=== PATIENT | male | born 1960 | race Caucasian/White ===

== ENCOUNTER 2017-06-27 03:22 | Inpatient (IN) | payer OTHER ==
[2017-06-27] VITALS (9 sets, daily range): BP systolic 106–132; BP diastolic 66–85; PULSE 57–102; RESP 16–48; TEMP 96.9–97.9; O2SAT 82–100
[~2017-06-27] VITALS: Ht 170.2 cm; Wt 51.0 kg
[~2017-06-27 03:22] MED LIST: Z.0.NO CURRENT MEDS
--- NOTE | 2017-06-27 04:05 | PD ---
HPI Chief Complaint: Psychiatric Symptoms Time Seen by Provider: 03:45 Travel History International Travel<30 days: No Contact w/Intl Traveler<30days: No Traveled to known affect area: No History of Present Illness HPI 57-year-old male presents under Lynn act initiated by the Police Department. The patient reports that he believes that some clowns have been vandalizing the house is in his neighborhood. Specifically he feels like they are targeting his house as he recently inherited $4300 and he thinks that the clowns are trying to act into his computer system. According to the Lynn act form this is the third time that the police department has had to respond this patient's residence to make contact with the patient. He called the police because he thought that there are people inside of the house trying to kill him. The police did not find anyone in the house except the patient and his 91-year-old mother who he lives with. The patient consumes alcohol on a daily basis, tonight drank beer and vodka. He has no psychiatric history. He has no medical complaints at this time. PFSH Past Medical History Arthritis: Yes (A LITTLE BIT) Asthma: No Autoimmune Disease: No Blood Disorders: No Anxiety: No Depression: No Heart Rhythm Problems: Yes (HEART PALPITATIONS) Cancer: No High Cholesterol: No Chemotherapy: No Chest Pain: No Congestive Heart Failure: No COPD: No Cerebrovascular Accident: No Diabetes: No Diminished Hearing: No Endocrine: No Gastrointestinal Disorders: Yes (BLEEDING ULCERS) GERD: No Glaucoma: No Genitourinary: No Headaches: No Hepatitis: No Hiatal Hernia: No Hypertension: No Immune Disorder: No Kidney Stones: No Neurologic: No Psychiatric: No Respiratory: No Integumentary: Yes (PSORIASIS) Migraines: No Myocardial Infarction: No Pancreatitis: Yes Radiation Therapy: No Renal Failure: No Seizures: No Sickle Cell Disease: No Sleep Apnea: No Thyroid Disease: No Ulcer: Yes Past Surgical History Abdominal Surgery: No AICD: No Appendectomy: No Arteriovenous Shunt: No Cardiac Surgery: No Cholecystectomy: No Ear Surgery: No Endocrine Surgery: No Eye Surgery: No Genitourinary Surgery: No Gynecologic Surgery: No Insulin Pump: No Joint Replacement: No Oral Surgery: No Pacemaker: No Thoracic Surgery: No Other Surgery: Yes (JAW) Social History Alcohol Use: Yes (6 BEERS DAILY) Tobacco Use: Yes (1.5 PPD) Substance Use: No Allergies-Medications (Allergen,Severity, Reaction): Coded Allergies: No Known Allergies (Verified , 06/27/17) Reported Meds & Prescriptions Reported Meds & Active Scripts Active No Active Prescriptions or Reported Medications Review of Systems Except as stated in HPI: all other systems reviewed are Neg Physical Exam Narrative GENERAL: Well-developed well-nourished male in no acute distress SKIN: Warm and dry. HEAD: Atraumatic. Normocephalic. EYES: Pupils equal and round. No scleral icterus. No injection or drainage. ENT: No nasal bleeding or discharge. Mucous membranes pink and moist. NECK: Trachea midline. No JVD. CARDIOVASCULAR: Regular rate and rhythm. No murmur appreciated. RESPIRATORY: No accessory muscle use. Clear to auscultation. Breath sounds equal bilaterally. GASTROINTESTINAL: Abdomen soft, non-tender, nondistended. Hepatic and splenic margins not palpable. MUSCULOSKELETAL: No obvious deformities. No clubbing. No cyanosis. No edema. NEUROLOGICAL: Awake and alert. No obvious cranial nerve deficits. Motor grossly within normal limits. Normal speech. PSYCHIATRIC: Insight and judgment appear limited, delusional and bizarre statements. Data Data Last Documented VS Vital Signs Date Time Temp Pulse Resp B/P Pulse Ox O2 Delivery O2 Flow Rate FiO2 06/27/17 05:38 82 20 106/70 98 Room Air 06/27/17 03:35 97.6 Orders Complete Blood Count With Diff (06/27/17 03:43) Comprehensive Metabolic Panel (06/27/17 03:43) Psych Screen (06/27/17 03:43) Drug Screen, Random Urine (06/27/17 03:43) Alcohol (Ethanol) (06/27/17 03:43) Potassium Chlor 10 Meq Premix (Kcl 10 Me (06/27/17 05:15) Potassium Chloride (Kcl) (06/27/17 05:15) Electrocardiogram (06/27/17 ) Ecg Monitoring (06/27/17 05:09) Sodium Chlor 0.9% 1000 Ml Inj (Ns 1000 M (06/27/17 05:09) Magnesium (Mg) (06/27/17 05:18) ^ Sitter (06/27/17 05:25) Consult Psychiatry (06/27/17 ) (Hub Use Only)Inp Phy Cons/Ref (06/27/17 ) Labs Laboratory Tests Test 06/27/17 03:45 White Blood Count 5.7 TH/MM3 Red Blood Count 4.16 MIL/MM3 Hemoglobin 13.0 GM/DL Hematocrit 38.5 % Mean Corpuscular Volume 92.4 FL Mean Corpuscular Hemoglobin 31.2 PG Mean Corpuscular Hemoglobin 33.8 % Concent Red Cell Distribution Width 14.5 % Platelet Count 106 TH/MM3 Mean Platelet Volume 7.7 FL Neutrophils (%) (Auto) 62.0 % Lymphocytes (%) (Auto) 26.5 % Monocytes (%) (Auto) 11.0 % Eosinophils (%) (Auto) 0.4 % Basophils (%) (Auto) 0.1 % Neutrophils # (Auto) 3.5 TH/MM3 Lymphocytes # (Auto) 1.5 TH/MM3 Monocytes # (Auto) 0.6 TH/MM3 Eosinophils # (Auto) 0.0 TH/MM3 Basophils # (Auto) 0.0 TH/MM3 CBC Comment DIFF FINAL Differential Comment Sodium Level 118 MEQ/L Potassium Level 2.4 MEQ/L Chloride Level 71 MEQ/L Carbon Dioxide Level 35.0 MEQ/L Anion Gap 12 MEQ/L Blood Urea Nitrogen 22 MG/DL Creatinine 0.96 MG/DL Estimat Glomerular Filtration 81 ML/MIN Rate Random Glucose 97 MG/DL Calcium Level 9.0 MG/DL Total Bilirubin 1.2 MG/DL Aspartate Amino Transf 137 U/L (AST/SGOT) Alanine Aminotransferase 66 U/L (ALT/SGPT) Alkaline Phosphatase 143 U/L Total Protein 8.9 GM/DL Albumin 4.2 GM/DL Ethyl Alcohol Level 89 MG/DL [facility] Medical Decision Making Medical Screen Exam Complete: Yes Emergency Medical Condition: Yes Medical Record Reviewed: Yes Differential Diagnosis Schizophrenia, schizoaffective disorder, substance induced mood disorder, encephalopathy, acute psychosis, intoxication Narrative Course 57-year-old male presents under Lynn act initiated by the Police Department for evaluation of paranoia. Mental health screening discussed with the patient. Psychiatric screen ordered. The patient's lab work has resulted a potassium level 2.4 and a sodium level of 118. The patient will be placed on ECG monitoring a 12-lead EKG was obtained. The patient will be given IV fluids, placed on water restriction, given 10 mEq IV potassium chloride and 40 mEq oral potassium. He will be admitted medically. Discussed with my attending who agrees with plan of care. Discussed with Dr. Estrada who is agreeable with admission. A sitter will be requested. Procedures EKG Prior to Arrival: Yes Diagnosis Primary Impression: Paranoid delusion Additional Impressions: Hyponatremia Hypokalemia Admitting Information Admitting Physician Requests: Admit Scripts No Active Prescriptions or Reported Meds Marvin Galindo Jun 27, 2017 04:05
[2017-06-27 04:27] LABS: AUTOMATED NEUTROPHIL # 3.5 TH/MM3 (1.8-7.7); BASOPHIL % 0.1 % (0.0-2.0); EOSINOPHIL % 0.4 % (0.0-4.0); HEMATOCRIT 38.5 % (39.0-51.0); HEMO FLAGS DIFF FINAL; LYMPH % 26.5 % (9.0-44.0); LYMPHOCYTE # 1.5 TH/MM3 (1.0-4.8); MEAN CELL VOLUME 92.4 FL (80.0-100.0); MEAN CORPUSCULAR HEMOGLOBIN 31.2 PG (27.0-34.0); MEAN CORPUSCULAR HGB CONC 33.8 % (32.0-36.0); PLATELET COUNT 106 TH/MM3 (150-450); RED BLOOD COUNT 4.16 MIL/MM3 (4.50-5.90); RED CELL DISTRIBUTION WIDTH 14.5 % (11.6-17.2); WHITE BLOOD COUNT 5.7 TH/MM3 (4.0-11.0)
[2017-06-27 05:02] LABS: ALKALINE PHOSPHATASE 143 U/L (45-117); ALT (GPT) 66 U/L (12-78); ANION GAP 12 MEQ/L (5-15); AST (GOT) 137 U/L (15-37); BLOOD UREA NITROGEN 22 MG/DL (7-18); CHLORIDE 71 MEQ/L (98-107); GLOMERULAR FILTRATION RATE 81 ML/MIN (>89); TOTAL BILIRUBIN ADULT 1.2 MG/DL (0.2-1.0)
[2017-06-27 05:07] LABS: ALCOHOL 89 MG/DL (0-5)
[2017-06-27 05:09] LABS: POTASSIUM 2.4 MEQ/L (3.5-5.1); SODIUM (NA) 118 MEQ/L (136-145)
[2017-06-27] MEDS ORDERED: SODIUM CHLOR 0.9% 1000 ML INJ 1,000 ML IV SCH (05:09)
[2017-06-27] MEDS ORDERED: POTASSIUM CHLORIDE 20 MEQ CONTROLLED RELEASE TAB PO ONE ×2 (05:15→16:15)
[2017-06-27] MEDS ORDERED: POTASSIUM CHLOR 10 MEQ PREMIX 100 ML IV ONE (05:15)
[2017-06-27] MEDS ORDERED: LACTULOSE SYRUP 20 GM/30 ML CUP PO PRN (06:00)
[2017-06-27] MEDS ORDERED: BISACODYL 10 MG SUPP RECTAL PRN (06:00)
[2017-06-27] MEDS ORDERED: ACETAMINOPHEN 325 MG TAB PO PRN (06:00)
[2017-06-27] MEDS ORDERED: MAGNESIUM HYDROXIDE SUSP 30 ML CUP PO PRN (06:00)
[2017-06-27] MEDS ORDERED: FLUMAZENIL 0.5 MG/5 ML VIAL IV PUSH PRN (06:00)
[2017-06-27] MEDS ORDERED: SODIUM CHLORIDE 0.9% FLUSH 10 ML FLUSH IV FLUSH PRN (06:00)
[2017-06-27] MEDS ORDERED: LORazepam 1 MG TAB PO PRN (06:00)
[2017-06-27] MEDS ORDERED: LORazepam 2 MG TAB PO PRN (06:00)
[2017-06-27] MEDS ORDERED: LORazepam 2 MG/ML VIAL IV PUSH PRN ×4 (06:00)
[2017-06-27] MEDS ORDERED: ONDANSETRON HCL 4 MG/2 ML VIAL IVP PRN (06:00)
[2017-06-27] MEDS ORDERED: SENNOSIDES 8.6 MG TAB PO PRN (06:00)
[2017-06-27] MEDS ORDERED: HALOPERIDOL LACTATE 5 MG/ML AMP IM PRN (06:00)
[2017-06-27] MEDS: SODIUM CHLOR 0.9% 1000 ML INJ 1,000 ML IV SCH ×2 (06:54→14:09)
[2017-06-27] MEDS: MULTIVITAMINS/MINERALS THERAPEUTIC TAB PO SCH (09:00)
[2017-06-27] MEDS: SODIUM CHLORIDE 0.9% FLUSH 10 ML FLUSH IV FLUSH SCH ×2 (09:00→20:49)
[2017-06-27] MEDS: FOLIC ACID 1 MG TAB PO SCH (09:00)
[2017-06-27] MEDS: THIAMINE HCL 100 MG TAB PO SCH (09:00)
[2017-06-27] MEDS: DOCUSATE SODIUM 50 MG/SENNA 8.6 MG TAB PO SCH ×2 (09:00→20:48)
[2017-06-27 12:47] LABS: BICARBONATE 34.4 MEQ/L (21.0-32.0); POTASSIUM 3.3 MEQ/L (3.5-5.1)
--- NOTE | 2017-06-27 15:11 | EKG ---
Date Performed: 06/27/2017 Time Performed: 05:19:16 PTAGE: 57 years EKG: Sinus rhythm Borderline atrial abnormality Otherwise within normal limits Compared to prior tracing no significan t change BORDERLINE ECG PREVIOUS TRACING : 09/19/2009 11.22 DOCTOR: Ross Chen Interpretating Date/Time 06/27/2017 15:09:49
--- NOTE | 2017-06-27 15:44 | HHI.HP ---
[facility] Service [facility] Primary Care Physician No Primary Care Physician Admission Diagnosis hyponatremia, hypokalemia, Lynn act Diagnoses: Chief Complaint: Altered mental status/Lynn act Travel History International Travel<30 Days: No Contact w/Intl Traveler <30 Da: No Traveled to Known Affected Are: No History of Present Illness This is a 57-year-old male with a past medical history only significant from admission in 2008 due to bleeding ulcer who presented with altered mental status /Lynn act. She unable to give a history due to altered mental status. Medical records reviewed stated that patient was Lynn act and brought to the ED. Per ED provider patient reported that he probably some clowns have been vandalizing his house and neighborhood. He feels like they're targeting his house because he recently inherited $4300. Patient lives with his mom who is 91 years old. He does drink alcohol on a daily basis. He drinks beer and vodka. He has no psychiatric history in the EMR system. When I tried to interview patient he would only moan and would not speak with me. His sitters us at the bedside and she stated that this is his baseline and at times he does speak and he still thinks clowns are after him. She also stated that he did asked to use the restroom earlier and they tried to let him use the restroom but he did not urinate at all. Unable to obtain review of systems due to altered mental status. Past Family Social History Past Medical History Unable to obtain due to altered mental status. Medical records reviewed show that patient had a history of pancreatitis, osteoarthritis, and bleeding ulcer. Past Surgical History Unable to obtain but in the EMR stated that patient had jaw surgery. Reported Medications Reported Meds & Active Scripts Active No Active Prescriptions or Reported Medications Allergies: Coded Allergies: No Known Allergies (Verified , 06/27/17) Active Ordered Medications Current Medications Potassium Chloride 100 ml @ 100 mls/hr BOLUS ONCE IV Last administered on t 05:35; Start 06/27/17 at 05:15; Stop 06/27/17 at 06:14; Status DC Potassium Chloride (KCl) 40 meq ONCE ONCE PO Last administered on 06/27/17 05 :24; Start 06/27/17 at 05:15; Stop 06/27/17 at 05:16; Status DC Sodium Chloride 1,000 ml @ 1,000 mls/hr Q1H IV Last administered on 06/27/17 05:35; Start 06/27/17 at 05:09; Stop 06/27/17 at 06:08; Status DC Folic Acid (Folate) 1 mg DAILY PO Last administered on 06/27/17 09:00; Start 06/27/17 at 09:00; Stop 07/02/17 at 08:59 Thiamine HCl (Vitamin B1) 100 mg DAILY PO Last administered on 06/27/17 09:00 ; Start 06/27/17 at 09:00 Multivitamins/ Minerals Therapeutic (Theragran M Tab) 1 tab DAILY PO Last administered on 06/27/17 09:00; Start 06/27/17 at 09:00; Stop 07/02/17 at 08:59 Flumazenil (Romazicon Inj) 0.2 mg Q1M PRN IV PUSH SEE LABEL COMMENTS; Start at 06:00 Lorazepam (Ativan) 1 mg Q4H PRN PO CIWA 8 - 10; Start 06/27/17 at 06:00 Lorazepam (Ativan Inj) 1 mg Q4H PRN IV PUSH CIWA 8 - 10; Start 06/27/17 at 06: 00 Lorazepam (Ativan) 2 mg Q2H PRN PO CIWA 11-14; Start 06/27/17 at 06:00 Lorazepam (Ativan Inj) 2 mg Q2H PRN IV PUSH CIWA 11-14 Last administered on 08:30; Start 06/27/17 at 06:00 Lorazepam (Ativan Inj) 2 mg Q1H PRN IV PUSH CIWA 15-20; Start 06/27/17 at 06:00 Lorazepam (Ativan Inj) 2 mg Q15M PRN IV PUSH CIWA > 20; Start 06/27/17 at 06:00 Haloperidol Lactate (Haldol Inj) 2 mg Q15M PRN IM SEE LABEL COMMENTS; Start at 06:00 Sodium Chloride 1,000 ml @ 100 mls/hr Q10H IV Last administered on 06/27/17 14:09; Start 06/27/17 at 05:56 Sodium Chloride (NS Flush) 2 ml UNSCH PRN IV FLUSH FLUSH AFTER USING IV ACCESS ; Start 06/27/17 at 06:00 Sodium Chloride (NS Flush) 2 ml BID IV FLUSH ; Start 06/27/17 at 09:00 Ondansetron HCl (Zofran Inj) 4 mg Q6H PRN IVP NAUSEA OR VOMITING; Start at 06:00 Acetaminophen (Tylenol) 650 mg Q6H PRN PO FEVER/PAIN SCALE 1 TO 2; Start at 06:00 Senna/Docusate Sodium (Maegan-Colace) 1 tab BID PO Last administered on 09:00; Start 06/27/17 at 09:00 Magnesium Hydroxide (Milk Of Magnesia Liq) 30 ml Q12H PRN PO MILD - MODERATE CONSTIPATION; Start 06/27/17 at 06:00 Sennosides (Senokot) 17.2 mg Q12H PRN PO MODERATE - SEVERE CONSTIPATION; Start 06/27/17 at 06:00 Bisacodyl (Dulcolax Supp) 10 mg DAILY PRN RECTAL SEVERE CONSITIPATION; Start at 06:00 Lactulose (Lactulose Liq) 30 ml DAILY PRN PO SEVERE CONSITIPATION; Start at 06:00 Family History Unable to obtain. Social History Patient lives with his 91-year-old mother. He smokes one pack per day. He drinks about 6 beers per day. On the day of admission he did recommend also drinking vodka. Physical Exam Vital Signs Vital Signs Date Time Temp Pulse Resp B/P (MAP) Pulse Ox O2 Delivery O2 Flow Rate FiO2 06/27/17 12:00 96.9 57 18 123/69 (87) 82 06/27/17 12:00 72 06/27/17 08:30 70 06/27/17 08:30 97.9 88 18 118/72 (87) 96 06/27/17 06:38 80 18 112/66 (81) 99 Room Air 06/27/17 05:38 82 20 106/70 (82) 98 Room Air 06/27/17 03:35 97.6 102 18 132/85 (101) 100 Physical Exam GENERAL: This is a well-nourished, well-developed patient, in no apparent distress but is moaning. SKIN: No rashes, ecchymoses or lesions. Cool and dry. HEAD: Atraumatic. Normocephalic. No temporal or scalp tenderness. EYES: Pupils equal round and reactive. Extraocular motions intact. No scleral icterus. No injection or drainage. ENT: Nose without bleeding, purulent drainage or septal hematoma. Throat without erythema, tonsillar hypertrophy or exudate. Uvula midline. Airway patent. NECK: Trachea midline. No JVD or lymphadenopathy. Supple, nontender, no meningeal signs. CARDIOVASCULAR: Regular rate and rhythm without murmurs, gallops, or rubs. RESPIRATORY: Clear to auscultation. Breath sounds equal bilaterally. No wheezes , rales, or rhonchi. GASTROINTESTINAL: Abdomen soft, non-tender, nondistended. No hepato-splenomegaly , or palpable masses. No guarding. MUSCULOSKELETAL: Extremities without clubbing, cyanosis, or edema. No joint tenderness, effusion, or edema noted. No calf tenderness. Negative Homans sign bilaterally. NEUROLOGICAL: Patient is moaning and eyes are closed. Grossly moves extremities. Laboratory Laboratory Tests Test 06/27/17 03:45 06/27/17 07:20 06/27/17 12:20 White Blood Count 5.7 Red Blood Count 4.16 Hemoglobin 13.0 Hematocrit 38.5 Mean Corpuscular Volume 92.4 Mean Corpuscular Hemoglobin 31.2 Mean Corpuscular Hemoglobin Concent 33.8 Red Cell Distribution Width 14.5 Platelet Count 106 Mean Platelet Volume 7.7 Neutrophils (%) (Auto) 62.0 Lymphocytes (%) (Auto) 26.5 Monocytes (%) (Auto) 11.0 Eosinophils (%) (Auto) 0.4 Basophils (%) (Auto) 0.1 Neutrophils # (Auto) 3.5 Lymphocytes # (Auto) 1.5 Monocytes # (Auto) 0.6 Eosinophils # (Auto) 0.0 Basophils # (Auto) 0.0 CBC Comment DIFF FINAL Differential Comment Blood Urea Nitrogen 22 18 Creatinine 0.96 0.69 Random Glucose 97 80 Total Protein 8.9 Albumin 4.2 Calcium Level 9.0 7.8 Alkaline Phosphatase 143 Aspartate Amino Transf (AST/SGOT) 137 Alanine Aminotransferase (ALT/SGPT) 66 Total Bilirubin 1.2 Sodium Level 118 125 Potassium Level 2.4 3.3 Chloride Level 71 82 Carbon Dioxide Level 35.0 34.4 Anion Gap 12 9 Estimat Glomerular Filtration Rate 81 119 Magnesium Level 3.2 Ethyl Alcohol Level 89 Urine Opiates Screen NEG Urine Barbiturates Screen NEG Urine Amphetamines Screen NEG Urine Benzodiazepines Screen NEG Urine Cocaine Screen NEG Urine Cannabinoids Screen NEG Serum Osmolality 270 Result Diagram: 06/27/17 0345 06/27/17 1220 Caprini VTE Risk Assessment Caprini VTE Risk Assessment: Mod/High Risk (score >= 2) VTE Pharm Contraindication: High risk for bleeding Caprini Risk Assessment Model Point Value = 1 Point Value = 2 Point Value = 3 Point Value = 5 Age 41-60 Minor surgery BMI > 25 kg/m2 Swollen legs Varicose veins or History of unexplained or recurrent spontaneous Oral contraceptives or hormone replacement Sepsis (< 1 month) Serious lung disease, including pneumonia (< 1 month) Abnormal pulmonary function Acute myocardial infarction Congestive heart failure (< 1 month) History of inflammatory bowel disease Medical patient at bed rest Age 61-74 Arthroscopic surgery Major open surgery (> 45 min) Laparoscopic surgery (> 45 min) Malignancy Confined to bed (> 72 hours) Immobilizing plaster cast Central venous access Age >= 75 History of VTE Family history of VTE Factor V Leiden Prothrombin 12214A Lupus anticoagulant Anticardiolipin antibodies Elevated serum homocysteine Heparin-induced thrombocytopenia Other congenital or acquired thrombophilia Stroke (< 1 month) Elective arthroplasty Hip, pelvis, or leg fracture Acute spinal cord injury (< 1 month) Prophylaxis Regimen Total Risk Factor Score Risk Level Prophylaxis Regimen 0-1 Low Early ambulation 2 Moderate Order ONE of the following: *Sequential Compression Device (SCD) *Heparin 5000 units SQ BID 3-4 Higher Order ONE of the following medications: *Heparin 5000 units SQ TID *Enoxaparin/Lovenox 40 mg SQ daily (WT < 150 kg, CrCl > 30 mL/min) *Enoxaparin/Lovenox 30 mg SQ daily (WT < 150 kg, CrCl > 10-29 mL/min) *Enoxaparin/Lovenox 30 mg SQ BID (WT < 150 kg, CrCl > 30 mL/min) AND/OR *Sequential Compression Device (SCD) 5 or more Highest Order ONE of the following medications: *Heparin 5000 units SQ TID (Preferred with Epidurals) *Enoxaparin/Lovenox 40 mg SQ daily (WT < 150 kg, CrCl > 30 mL/min) *Enoxaparin/Lovenox 30 mg SQ daily (WT < 150 kg, CrCl > 10-29 mL/min) *Enoxaparin/Lovenox 30 mg SQ BID (WT < 150 kg, CrCl > 30 mL/min) AND *Sequential Compression Device (SCD) Assessment and Plan Assessment and Plan 80-year-old male with a past medical history only significant for bleeding ulcer who presented with delirium Delirium -Labs significant for hyponatremia. Sodium is 118. Toxicology screen only positive for alcohol. This seems to be more psych despite low sodium. He does not have a psych history so will need to try to rule out other etiology. There is no CT scan of the brain. Although low suspicion for any pathology of the brain will get a stat CT scan of the brain to rule out any brain pathology. Will also get RPR, vitamin B12, thiamine levels, and TSH to rule out other etiology. -Neuro checks every 4 hours. Continue to monitor. -Continue a sitter. -Psychiatrist consulted. Hyponatremia -Sodium 118. Most likely secondary to dehydration and alcoholism. -Patient was given IV fluids with sodium improvement to 125. Continue with IV fluids. Continue to trend sodium. -Continue with neurochecks. Lynn act -Psych consulted. Hypokalemia -Improving. -Replenish as needed. Alcoholism -Patient is altered at the moment. To alcohol withdrawal. He was put on the CIWA protocol. -Will add thiamine, multivitamin and folic acid. DVT prophylaxis -SCDs. Will avoid chemoprophylaxis due to history of bleeding ulcer. Physician Certification 2 Midnight Certification Type: Admission for Inpatient Services Order for Inpatient Services The services are ordered in accordance with Medicare regulations or non- Medicare payer requirements, as applicable. In the case of services not specified as inpatient-only, they are appropriately provided as inpatient services in accordance with the 2-midnight benchmark. Estimated LOS (days): 3 3 days is the estimated time the patient will need to remain in the hospital, assuming treatment plan goals are met and no additional complications. Post-Hospital Plan: Other (specify) (psych) Amara Beal MD Jun 27, 2017 15:44
[2017-06-27 19:05] LABS: BICARBONATE 33.2 MEQ/L (21.0-32.0)
--- NOTE | 2017-06-27 19:57 | RADRPT ---
EXAM DATE/TIME: 06/27/2017 19:48 [place] COMPARISON: No previous studies available for comparison. INDICATIONS : Altered mental status. RADIATION DOSE: 49.97 CTDIvol (mGy) MEDICAL HISTORY : Pancreatitis. SURGICAL HISTORY : Jaw surgery. ENCOUNTER: Initial ACUITY: 1 day PAIN SCALE: 0/10 LOCATION: cranial TECHNIQUE: Multiple contiguous axial images were obtained of the head. Using automated exposure control and adj ustment of the mA and/or kV according to patient size, radiation dose was kept as low as reasonably a chievable to obtain optimal diagnostic quality images. DICOM format image data is available electro nically for review and comparison. FINDINGS: There is no evidence for intracranial hemorrhage, mass effect, mass lesions, edema, or extra-axial fl uid collections. The visualized bony structures appear intact. The ventricles are normal size for t he patient's age. There are no signs of acute infarction for technique. CONCLUSION: Unremarkable study. Brennon Garcia MD on June 27, 2017 at 19:55 Board Certified Radiologist. This report was verified electronically.
[2017-06-28] VITALS (10 sets, daily range): BP systolic 97–113; BP diastolic 61–72; PULSE 61–87; RESP 16–18; TEMP 97.6–99; O2SAT 97–100
[2017-06-28] MEDS: SODIUM CHLOR 0.9% 1000 ML INJ 1,000 ML IV SCH (01:25)
[2017-06-28 08:03] LABS: AUTOMATED NEUTROPHIL # 3.3 TH/MM3 (1.8-7.7); BASOPHIL % 0.1 % (0.0-2.0); EOSINOPHIL % 0.8 % (0.0-4.0); HEMATOCRIT 31.2 % (39.0-51.0); LYMPH % 15.4 % (9.0-44.0); LYMPHOCYTE # 0.7 TH/MM3 (1.0-4.8); MEAN CELL VOLUME 94.9 FL (80.0-100.0); MEAN CORPUSCULAR HEMOGLOBIN 31.3 PG (27.0-34.0); MEAN CORPUSCULAR HGB CONC 32.9 % (32.0-36.0); MONO % 11.4 % (0.0-8.0); NEUT % 72.3 % (16.0-70.0); PLATELET COUNT 73 TH/MM3 (150-450); RED BLOOD COUNT 3.29 MIL/MM3 (4.50-5.90); RED CELL DISTRIBUTION WIDTH 14.9 % (11.6-17.2); WHITE BLOOD COUNT 4.5 TH/MM3 (4.0-11.0)
[2017-06-28 08:11] LABS: HEMO FLAGS AUTO DIFF
[2017-06-28 08:33] LABS: ANION GAP 5 MEQ/L (5-15); AST (GOT) 72 U/L (15-37); BICARBONATE 34.2 MEQ/L (21.0-32.0); BLOOD UREA NITROGEN 13 MG/DL (7-18); CHLORIDE 94 MEQ/L (98-107); GLOMERULAR FILTRATION RATE 148 ML/MIN (>89); POTASSIUM 3.2 MEQ/L (3.5-5.1); SODIUM (NA) 133 MEQ/L (136-145)
[2017-06-28 08:37] LABS: ALKALINE PHOSPHATASE 104 U/L (45-117); ALT (GPT) 48 U/L (12-78); TOTAL BILIRUBIN ADULT 0.7 MG/DL (0.2-1.0)
[2017-06-28] MEDS: FOLIC ACID 1 MG TAB PO SCH (08:41)
[2017-06-28] MEDS: MULTIVITAMINS/MINERALS THERAPEUTIC TAB PO SCH (08:41)
[2017-06-28] MEDS: DOCUSATE SODIUM 50 MG/SENNA 8.6 MG TAB PO SCH (08:41)
[2017-06-28] MEDS: THIAMINE HCL 100 MG TAB PO SCH (08:41)
[2017-06-28] MEDS: SODIUM CHLORIDE 0.9% FLUSH 10 ML FLUSH IV FLUSH SCH (08:43)
[2017-06-28 09:10] LABS: OVALOCYTES 1+ (NORMAL); PLATELET ESTIMATE SMEAR LOW (NORMAL); PLATELET MORPHOLOGY NORMAL (NORMAL); SCAN/DIFF AUTO DIFF CONFIRMED; TEARDROP RBCS 1+ (NORMAL)
--- NOTE | 2017-06-28 10:31 | PD.PSY.CON ---
Provisional Diagnosis Admission Date Jun 27, 2017 at 05:46 History of Present Illness Service Psychiatry Consult Requested By Primary medical team Reason for Consult Paranoia, visual hallucinations Primary Care Physician No Primary Care Physician HPI The patient is a 57-year-old man, domicile in [place], single, unemployed, without no previous psychiatric history, no previous suicidal attempts, no previous psychiatric hospitalizations, no significant medical history, alcohol use disorder, who presented with altered mental status/Lynn act. As per Lynn act patient barricading himself at home screaming, very distressed and called the police stating that the street was full of people trying to kill him. Medical records reviewed stated that patient was Lynn act and brought to the ED. Per ED provider patient reported that he probably some clowns have been vandalizing his house and neighborhood. He feels like they're targeting his house because he recently inherited $4300. Patient lives with his mom who is 91 years old. Consulted to psychiatry for new onset psychosis. On psychiatric evaluation patient is found calm, cooperative and pleasant. Patient is fully oriented 3, he is able to say who is the president of denies states, able to name 3 objects, repeat 3 words, recall 2 of them 5 minutes later. The patient reports being very scared "because my mother's safety my house and there are many people surrounding my house trying to kill me". He says that in the last week he has been increasingly preoccupied because they're people from the mob and clowns with weapons shooting at his window and tried to kill him. He says that he can see them everyday. He says that the reason of his hospitalization is that those people sprayed poison on him. Other than this the patient reports good mood, denies current anxiety, denies anhedonia, denies hopelessness, denies helplessness. He denies suicidal and homicidal ideation, patient doesn't seem to be insightful about the nature of perceptual disturbances. He denies visual and auditory hallucinations. However, he reports having the sensation of people watching him, following him and poisoning his food. Patient reports daily use of 6-10 beers for the last 15 years. He reports past symptoms of withdrawal. Denies DTs and seizures. Last night he was in a detox rehabilitation was 15 years ago. Denies the use of illicit drugs. Review of Systems Constitutional: DENIES: Diaphoretic episodes, Fatigue, Fever, Weight gain, Weight loss, Chills, Dizziness, Change in appetite, Night Sweats Endocrine: DENIES: Heat/cold intolerance, Polydipsia, Polyuria, Polyphagia Eyes: DENIES: Blurred vision, Diplopia, Eye inflammation, Eye pain, Vision loss , Photosensitivity, Double Vision Ears, nose, mouth, throat: DENIES: Tinnitus, Hearing loss, Vertigo, Nasal discharge, Oral lesions, Throat pain, Hoarseness, Ear Pain, Running Nose, Epistaxis, Sinus Pain, Toothache, Odynophagia Genitourinary: DENIES: Sexual dysfunction, Urinary frequency, Urinary incontinence, Urgency, Hematuria, Dysuria, Nocturia, Penile Discharge, Testicular Pain, Testicular Swelling Musculoskeletal: DENIES: Joint pain, Muscle aches, Stiffness, Joint Swelling, Back pain, Neck pain Integumentary: DENIES: Abnormal pigmentation, Nail changes, Pruritus, Rash Hematologic/lymphatic: DENIES: Bruising, Lymphadenopathy Immunologic/allergic: DENIES: Eczema, Urticaria Neurologic: DENIES: Abnormal gait, Headache, Localized weakness, Paresthesias, Seizures, Speech Problems, Tremor, Poor Balance Psychiatric: COMPLAINS OF: Anxiety, Hallucinations, Delusions, DENIES: Confusion, Mood changes, Depression, Agitation, Suicidal Ideation, Homicidal Ideation Past Family Social History Coded Allergies: No Known Allergies (Verified , 06/27/17) No Active Prescriptions or Reported Meds Current Medications Medications (Trade) Dose Ordered Sig/Anahi Route Start Time Stop Time Status Last Admin (Folate) 1 mg DAILY PO 06/27/17 09:00 07/02/17 08:59 06/28/17 08:41 (Vitamin B1) 100 mg DAILY PO 06/27/17 09:00 06/28/17 08:41 (Theragran M Tab) 1 tab DAILY PO 06/27/17 09:00 07/02/17 08:59 06/28/17 08:41 (Romazicon Inj) 0.2 mg Q1M PRN IV PUSH 06/27/17 06:00 (Ativan) 1 mg Q4H PRN PO 06/27/17 06:00 (Ativan Inj) 1 mg Q4H PRN IV PUSH 06/27/17 06:00 (Ativan) 2 mg Q2H PRN PO 06/27/17 06:00 (Ativan Inj) 2 mg Q2H PRN IV PUSH 06/27/17 06:00 06/27/17 08:30 (Ativan Inj) 2 mg Q1H PRN IV PUSH 06/27/17 06:00 (Ativan Inj) 2 mg Q15M PRN IV PUSH 06/27/17 06:00 (Haldol Inj) 2 mg Q15M PRN IM 06/27/17 06:00 Sodium Chloride 1,000 ml @ 100 mls/hr Q10H IV 06/27/17 05:56 06/28/17 01:25 (NS Flush) 2 ml UNSCH PRN IV FLUSH 06/27/17 06:00 06/28/17 02:57 (NS Flush) 2 ml BID IV FLUSH 06/27/17 09:00 06/27/17 20:49 (Zofran Inj) 4 mg Q6H PRN IVP 06/27/17 06:00 06/28/17 02:57 (Tylenol) 650 mg Q6H PRN PO 06/27/17 06:00 (Maegan-Colace) 1 tab BID PO 06/27/17 09:00 06/28/17 08:41 (Milk Of Magnesia Liq) 30 ml Q12H PRN PO 06/27/17 06:00 (Senokot) 17.2 mg Q12H PRN PO 06/27/17 06:00 (Dulcolax Supp) 10 mg DAILY PRN RECTAL 06/27/17 06:00 (Lactulose Liq) 30 ml DAILY PRN PO 06/27/17 06:00 Family History Patient denies family psychiatric history Social History Patient was born and raised in [place], he lives [place] with his mother, unemployed, single, no kids, highest level of education is high school Patient's Strengths (min. 2) Verbal communication Physical Exam No tremors, no EPS, no stiffness, no symptoms of withdrawal, no pupillaris abnormality, no psychomotor agitation or retardation noted Vital Signs Vital Signs Date Time Temp Pulse Resp B/P (MAP) Pulse Ox O2 Delivery O2 Flow Rate FiO2 06/28/17 08:00 97.9 87 16 97/67 (77) 98 06/27/17 06:38 Room Air I/O 06/28/17 06/28/17 06/29/17 08:00 16:00 00:00 Intake Total 1480 ml Output Total 400 ml Balance 1080 ml Lab Results Laboratory Tests Test 06/27/17 03:45 06/27/17 07:20 06/27/17 12:20 White Blood Count 5.7 Red Blood Count 4.16 Hemoglobin 13.0 Hematocrit 38.5 Mean Corpuscular Volume 92.4 Mean Corpuscular Hemoglobin 31.2 Mean Corpuscular Hemoglobin Concent 33.8 Red Cell Distribution Width 14.5 Platelet Count 106 Mean Platelet Volume 7.7 Neutrophils (%) (Auto) 62.0 Lymphocytes (%) (Auto) 26.5 Monocytes (%) (Auto) 11.0 Eosinophils (%) (Auto) 0.4 Basophils (%) (Auto) 0.1 Neutrophils # (Auto) 3.5 Lymphocytes # (Auto) 1.5 Monocytes # (Auto) 0.6 Eosinophils # (Auto) 0.0 Basophils # (Auto) 0.0 CBC Comment DIFF FINAL Differential Comment Blood Urea Nitrogen 22 18 Creatinine 0.96 0.69 Random Glucose 97 80 Total Protein 8.9 Albumin 4.2 Calcium Level 9.0 7.8 Alkaline Phosphatase 143 Aspartate Amino Transf (AST/SGOT) 137 Alanine Aminotransferase (ALT/SGPT) 66 Total Bilirubin 1.2 Sodium Level 118 125 Potassium Level 2.4 3.3 Chloride Level 71 82 Carbon Dioxide Level 35.0 34.4 Anion Gap 12 9 Estimat Glomerular Filtration Rate 81 119 Magnesium Level 3.2 Ethyl Alcohol Level 89 Urine Opiates Screen NEG Urine Barbiturates Screen NEG Urine Amphetamines Screen NEG Urine Benzodiazepines Screen NEG Urine Cocaine Screen NEG Urine Cannabinoids Screen NEG Serum Osmolality 270 Result Diagram: 06/27/17 0345 06/27/17 1220 Mental Status Examination Appearance man, [facility], appears older than his stated age, is calm and cooperative Speech: Unremarkable Orientation: x3 Memory: Unremarkable Thought Process: Logical Thought Content: Bizarre thinking, Derealization, Paranoid Language Fluent and spontaneous Fund of Knowledge Adequate for level of education Hallucination Type: Auditory, Visual Attention and Concentration: Good Suicidal Ideation: No Previous Suicide Attempts: No Homicidal Ideation: No Previous Homicide Attempts: No Judgment: Poor Affect: Good Mood: Irritable Motor Activity: Normal gait Assessment & Plan Problem List: (1) Unspecified psychosis ICD Codes: F29 - Unspecified psychosis not due to a substance or known physiological condition Assessment & Plan: On psychiatric evaluation today the patient presents was seems to be a new onset progressing, increasing frequency and intensity in the last 7 days, paranoia and perceptual disturbances. Perceptual disturbances consists on visual and auditory hallucinations of seeing people around his house trying to harm him. Patient is very detail in the description of this people and their intention. He reports that this people have been shooting his house, but also spraying poison him. Patient is paranoid believing that those people are trying to control him and poison him even here in the hospital. Patient seems to be very distressed and anxious about this perceptual disturbances, and seems to be completely insightless about his psychosis. Patient does not seem to have any symptomatology of depression or christos. Patient seems to be cognitively intact in a superficial cognitive assessment. At this moment the etiology of psychosis continue to be unclear but, delirium due to alcohol withdrawal, alcohol hallucinosis, delirious due to underlying medical conditions, progressive major neurocognitive process or even primary psychosis should study in the differential. Due to the level of psychosis patient represents an elevated risk of danger to self and others and needs psychiatric hospitalization for stabilization. We'll start Risperdal 1 mg twice a day for psychosis. He might benefit of a neurology consult. Continue CIWA protocol. Collateral information still pending. Transfer to med psych. Assessment & Plan Estimated LOS: John Jaeger MD Jun 28, 2017 10:31
--- NOTE | 2017-06-28 10:44 | HHI.PR ---
Subjective Remarks Follow-up hyponatremia/acute psychosis/paranoia 06/28/17-patient seen and examined, alert and oriented 3. Na up to 133 today, per psychiatry will need to transfer patient to [facility] psych. No acute event overnight Objective Vitals Vital Signs Date Time Temp Pulse Resp B/P (MAP) Pulse Ox O2 Delivery O2 Flow Rate FiO2 06/28/17 08:00 97.9 87 16 97/67 (77) 98 06/28/17 04:08 69 06/28/17 04:00 98.2 73 17 97/61 (73) 97 06/28/17 00:28 68 06/28/17 00:00 98.3 85 18 106/70 (82) 99 06/27/17 20:23 70 06/27/17 20:00 97.5 77 16 116/82 (93) 98 06/27/17 16:43 97.5 77 18 122/83 (96) 100 06/27/17 16:00 71 06/27/17 12:00 96.9 57 18 123/69 (87) 82 06/27/17 12:00 72 I/O 06/27/17 06/27/17 06/27/17 06/28/17 06/28/17 06/28/17 06:59 14:59 22:59 06:59 14:59 22:59 Intake Total 50 ml 1709 ml 1480 ml Output Total 200 ml 800 ml 400 ml Balance -150 ml 909 ml 1080 ml Intake Oral 50 ml 360 ml 480 ml IV Total 1349 ml 1000 ml Output Urine Total 200 ml 800 ml 400 ml # Voids 1 # Bowel Movements 2 Result Diagram: 06/28/1761206/28/17612 Objective Remarks GENERAL: NAD SKIN: Warm and dry. HEAD: Normocephalic. EYES: No scleral icterus. No injection or drainage. NECK: Supple, trachea midline. No JVD or lymphadenopathy. CARDIOVASCULAR: Regular rate and rhythm without murmurs, gallops, or rubs. RESPIRATORY: Breath sounds equal bilaterally. No accessory muscle use. GASTROINTESTINAL: Abdomen soft, non-tender, nondistended. MUSCULOSKELETAL: No cyanosis, or edema. BACK: Nontender without obvious deformity. No CVA tenderness. A/P Problem List: (1) Hyponatremia ICD Code: E87.1 - Hypo-osmolality and hyponatremia Status: Acute (2) Hypokalemia ICD Code: E87.6 - Hypokalemia Status: Acute (3) Paranoid delusion ICD Code: F22 - Delusional disorders Status: Acute (4) Unspecified psychosis ICD Code: F29 - Unspecified psychosis not due to a substance or known physiological condition Assessment and Plan 57-year-old man with Toxic metabolic encephalopathy Resolved Hyponatremia Sodium up to 133 with IV fluid hydration Hypokalemia Give potassium 60 mEq 1 now and monitor Acute psychosis, paranoia Management per psychiatry and recommended transfer to med psych Risperdal 1 mg by mouth twice a day Alcohol abuse Rally pack, CIWA protocol DVT prophylaxis -SCDs. Will avoid chemoprophylaxis due to history of bleeding ulcer. Luis Felipe Zavala MD Jun 28, 2017 10:44
[2017-06-28] MEDS ORDERED: FOLI1TAB6 PO (10:49)
[2017-06-28] MEDS ORDERED: RISP1 PO (10:49)
[2017-06-28] MEDS ORDERED: GNP100TA3 PO (10:49)
--- NOTE | 2017-06-28 10:53 | HHI.DS ---
Discharge Summary Admission Date Jun 27, 2017 at 05:46 Discharge Date: Jun 28, 2017 Admitting Diagnosis hyponatremia, hypokalemia, Lynn act (1) Hyponatremia ICD Code: E87.1 - Hypo-osmolality and hyponatremia Status: Resolved (2) Hypokalemia ICD Code: E87.6 - Hypokalemia Status: Resolved (3) Paranoid delusion ICD Code: F22 - Delusional disorders Status: Resolved (4) Unspecified psychosis ICD Code: F29 - Unspecified psychosis not due to a substance or known physiological condition Status: Resolved Procedures none Brief History - From Admission This is a 57-year-old male with a past medical history only significant from admission in 2008 due to bleeding ulcer who presented with altered mental status /Lynn act. She unable to give a history due to altered mental status. Medical records reviewed stated that patient was Lynn act and brought to the ED. Per ED provider patient reported that he probably some clowns have been vandalizing his house and neighborhood. He feels like they're targeting his house because he recently inherited $4300. Patient lives with his mom who is 91 years old. He does drink alcohol on a daily basis. He drinks beer and vodka. He has no psychiatric history in the EMR system. When I tried to interview patient he would only moan and would not speak with me. His sitters us at the bedside and she stated that this is his baseline and at times he does speak and he still thinks clowns are after him. She also stated that he did asked to use the restroom earlier and they tried to let him use the restroom but he did not urinate at all. Unable to obtain review of systems due to altered mental status. CBC/BMP: 06/28/17 0613 06/28/17 0613 Significant Findings Laboratory Tests Test 06/27/17 03:45 06/27/17 07:20 06/27/17 12:20 06/27/17 18:12 Red Blood Count 4.16 MIL/MM3 (4.50-5.90) Hematocrit 38.5 % (39.0-51.0) Platelet Count 106 TH/MM3 (150-450) Monocytes (%) (Auto) 11.0 % (0.0-8.0) Blood Urea Nitrogen 22 MG/DL (7-18) Total Protein 8.9 GM/DL (6.4-8.2) Alkaline Phosphatase 143 U/L (45-117) Aspartate Amino Transf (AST/SGOT) 137 U/L (15-37) Total Bilirubin 1.2 MG/DL (0.2-1.0) Sodium Level 118 MEQ/L (136-145) 125 MEQ/L (136-145) 129 MEQ/L (136-145) Potassium Level 2.4 MEQ/L (3.5-5.1) 3.3 MEQ/L (3.5-5.1) 3.0 MEQ/L (3.5-5.1) Chloride Level 71 MEQ/L (98-107) 82 MEQ/L (98-107) 88 MEQ/L (98-107) Carbon Dioxide Level 35.0 MEQ/L (21.0-32.0) 34.4 MEQ/L (21.0-32.0) 33.2 MEQ/L (21.0-32.0) Estimat Glomerular Filtration Rate 81 ML/MIN (>89) Magnesium Level 3.2 MG/DL (1.5-2.5) Ethyl Alcohol Level 89 MG/DL (0-5) Calcium Level 7.8 MG/DL (8.5-10.1) 7.7 MG/DL (8.5-10.1) Serum Osmolality 270 MOSM/KG (275-295) Creatinine 0.59 MG/DL (0.60-1.30) Vitamin B12 Level 1161 PG/ML (193-986) Test 06/28/17 06:13 Red Blood Count 3.29 MIL/MM3 (4.50-5.90) Hemoglobin 10.3 GM/DL (13.0-17.0) Hematocrit 31.2 % (39.0-51.0) Platelet Count 73 TH/MM3 (150-450) Neutrophils (%) (Auto) 72.3 % (16.0-70.0) Monocytes (%) (Auto) 11.4 % (0.0-8.0) Lymphocytes # (Auto) 0.7 TH/MM3 (1.0-4.8) Platelet Estimate LOW (NORMAL) Tear Drop Cells 1+ (NORMAL) Ovalocytes 1+ (NORMAL) Creatinine 0.57 MG/DL (0.60-1.30) Total Protein 6.1 GM/DL (6.4-8.2) Albumin 2.8 GM/DL (3.4-5.0) Calcium Level 8.0 MG/DL (8.5-10.1) Aspartate Amino Transf (AST/SGOT) 72 U/L (15-37) Sodium Level 133 MEQ/L (136-145) Potassium Level 3.2 MEQ/L (3.5-5.1) Chloride Level 94 MEQ/L (98-107) Carbon Dioxide Level 34.2 MEQ/L (21.0-32.0) Imaging Last Impressions Head CT 06/27/17 0000 Signed Impressions: Service Date/Time: Tuesday, June 27, 2017 19:48 - CONCLUSION: Unremarkable study. Brennon Garcia MD PE at Discharge GENERAL: NAD SKIN: Warm and dry. HEAD: Normocephalic. EYES: No scleral icterus. No injection or drainage. NECK: Supple, trachea midline. No JVD or lymphadenopathy. CARDIOVASCULAR: Regular rate and rhythm without murmurs, gallops, or rubs. RESPIRATORY: Breath sounds equal bilaterally. No accessory muscle use. GASTROINTESTINAL: Abdomen soft, non-tender, nondistended. MUSCULOSKELETAL: No cyanosis, or edema. BACK: Nontender without obvious deformity. No CVA tenderness. Hospital Course Patient admitted secondary to toxic metabolic encephalopathy and treated for hyponatremia as well as other electrolyte abnormalities. Psychiatry was consulted secondary to acute psychosis and paranoia which patient was started on Risperdal. He was also placed on rally pack as well as CIWA protocol for history of alcohol abuse. DVT and GI prophylaxis were provided. Pt Condition on Discharge: Fair Discharge Disposition: Disc to Psych Care Fac Discharge Time: > 30 minutes Discharge Instructions DIET: Follow Instructions for: Heart Healthy Diet Activities you can perform: Regular-No Restrictions Follow up Referrals: PCP Follow-up - Daily Psychiatry Adult New Medications: Folic Acid (Folic Acid) 1 Mg Tablet 1 MG PO DAILY for Alcohol Detox, #30 MG Risperidone (Risperdal) 1 Mg Tab 1 MG PO Q12HR for Control Mood Swing, #60 TAB Thiamine HCl (Gnp Vitamin B-1) 100 Mg Tab 100 MG PO DAILY for Alcohol Detox, #30 TAB Luis Felipe Zavala MD Jun 28, 2017 10:53
[2017-06-28] MEDS ORDERED: risperiDONE 1 MG TAB PO SCH (11:00)
[2017-06-28] MEDS ORDERED: POTASSIUM CHLORIDE 10 MEQ CONTROLLED RELEASE TAB PO ONE (11:00)
[2017-06-28] MEDS ORDERED: CALCIUM CARBONATE 500 MG CHEWABLE TAB CHEW ONE (14:30)
== END 2017-06-28 16:46 | DRG 640 ==
LOC: NEPD 03:22 → NEDA 05:46 → HOCA 08:30
PROVIDERS: ADMIT Hospitalist; ATTEND Hospitalist
DX: E87.1 Hypo-osmolality and hyponatremia (principal); G92 Toxic encephalopathy; E86.0 Dehydration; F29 Unspecified psychosis not due to a substance or known physiological condition; E87.6 Hypokalemia; F10.10 Alcohol abuse, uncomplicated; Y90.4 Blood alcohol level of 80-99 mg/100 ml; F17.210 Nicotine dependence, cigarettes, uncomplicated
CPT/HCPCS: 70450; 80048; 80053; 80307; 82607; 83735; 83930; 84425; 84443; 85025; 86592; 93005; 96374; J2060; J2405; J3480; J7030

== ENCOUNTER 2017-06-28 11:40 | Inpatient (IN) | payer OTHER ==
[~2017-06-28 11:40] MED LIST changes: +FOLI1TAB6 PO; +GNP100TA3 PO; +RISP1 PO; -Z.0.NO CURRENT MEDS
[2017-06-28 17:41] VITALS: BP 128/72; PULSE 95; RESP 16; TEMP 97.4; O2SAT 100
[2017-06-28 18:00] VITALS: BP 106/58; PULSE 91; RESP 16; TEMP 98; O2SAT 97
[2017-06-28] MEDS ORDERED: LORazepam 1 MG TAB PO PRN (19:15)
[2017-06-28] MEDS ORDERED: MAGNESIUM HYDROXIDE SUSP 30 ML CUP PO PRN (19:15)
[2017-06-28] MEDS ORDERED: ACETAMINOPHEN 325 MG TAB PO PRN (19:15)
[2017-06-28] MEDS ORDERED: LORazepam 2 MG TAB PO PRN (19:15)
[2017-06-28] MEDS ORDERED: ALUMINUM/MAGNESIUM/SIMETH 30 ML CUP PO PRN (19:15)
[2017-06-28] MEDS ORDERED: FLUMAZENIL 0.5 MG/5 ML VIAL IV PUSH PRN (19:15)
[2017-06-28] MEDS ORDERED: LORazepam 2 MG/ML VIAL IM PRN (19:15)
[2017-06-28] MEDS: REMOVE OLD NICOTINE PATCH T-DERMAL SCH (21:00)
[2017-06-28] MEDS: LORazepam 2 MG/ML VIAL IV PUSH PRN (21:10)
[2017-06-29] MEDS: LORazepam 2 MG/ML VIAL IV PUSH PRN ×3 (01:56→22:05)
[2017-06-29] MEDS: HALOPERIDOL LACTATE 5 MG/ML AMP IM PRN ×2 (02:14→04:38)
[2017-06-29] MEDS: chlordiazePOXIDE 25 MG CAP PO PRN ×2 (02:32→14:30)
[2017-06-29 05:55] LABS: ANION GAP 6 MEQ/L (5-15); BICARBONATE 30.2 MEQ/L (21.0-32.0); BLOOD UREA NITROGEN 9 MG/DL (7-18); CHLORIDE 97 MEQ/L (98-107); GLOMERULAR FILTRATION RATE 194 ML/MIN (>89); POTASSIUM 3.9 MEQ/L (3.5-5.1); SODIUM (NA) 133 MEQ/L (136-145)
[2017-06-29 05:59] LABS: HDL CHOLESTEROL 69.9 MG/DL (40.0-60.0); LDL CHOLESTEROL 37 MG/DL (0-99)
[2017-06-29 06:16] VITALS: BP 109/71; PULSE 82; RESP 18; TEMP 98.1; O2SAT 97
[2017-06-29] MEDS: NICOTINE 21 MG/24 HR PATCH T-DERMAL SCH (08:13)
--- NOTE | 2017-06-29 14:33 | PD.CONS ---
HPI Service [facility] Consult Requested By Psychiatry team Reason for Consult Medical evaluation Primary Care Physician No Primary Care Physician Diagnoses: History of Present Illness Written by Abdirahman Cortes, acting as scribe for Dr. Perea on 06/29/17 at 14: 15. Patient is a 57-year-old male with primary medical history of pancreatitis, osteoarthritis, bleeding ulcer in 2008 who came into the hospital under Lynn act for altered mental status. He was admitted for delirium, hyponatremia, hypo -kalemia possibly secondary to EtOH. He is now admitted to medical psychiatry unit for further evaluation. Consulted for medical management. Patient seen and examined today. Confuse. Patient knows his name but doesn't know the date nor where he is at. Poor historian. Responds to some questions and commands. States he had pancreatitis about 10 years ago. He had multiple surgeries to fix his fractures - right arm, right knee, left leg, jaw but is unable to provide any details of whether all the fractures have surgeries. Reports he drinks alcohol every day, and smokes a pack of cigarettes every day. Patient began asking for cigarettes during the interview and examination. He became upset. Denies pain and discomfort. Denies SOB/ dyspnea. Denies chest pain, headaches, dizziness. Denies fevers, n/v/d. Review of Systems ROS Limitations: Poor Historian Past Family Social History Allergies: Coded Allergies: No Known Allergies (Verified , 06/27/17) Past Medical History Pancreatitis Psoriasis Review of medical records shows osteoarthritis, bleeding ulcer in 2008 Past Surgical History Right knee surgery Jaw surgery Reported Medications Reported Meds & Active Scripts Active Gnp Vitamin B-1 (Thiamine HCl) 100 Mg Tab 100 Mg PO DAILY Folic Acid 1 Mg Tablet 1 Mg PO DAILY Risperdal (Risperidone) 1 Mg Tab 1 Mg PO Q12HR Active Ordered Medications Current Medications Medications (Trade) Dose Ordered Sig/Anahi Route Start Time Stop Time Status Last Admin (Ativan) 1 mg Q6H PRN PO 06/28/17 19:15 (Ativan Inj) 1 mg Q6H PRN IM 06/28/17 19:15 (Tylenol) 650 mg Q4H PRN PO 06/28/17 19:15 (Milk Of Magnesia Liq) 30 ml DAILY PRN PO 06/28/17 19:15 (Mag-Al Plus Susp Liq) 30 ml Q6H PRN PO 06/28/17 19:15 (Habitrol 21 Mg Patch.24 Hr) 1 patch DAILY T-DERMAL 06/29/17 09:00 Miscellaneous Information 1 HS T-DERMAL 06/28/17 21:00 (Ativan) 1 mg Q4H PRN PO 06/28/17 19:15 (Ativan Inj) 1 mg Q4H PRN IV PUSH 06/28/17 19:15 06/28/17 21:10 (Ativan) 2 mg Q2H PRN PO 06/28/17 19:15 (Ativan Inj) 2 mg Q2H PRN IV PUSH 06/28/17 19:15 (Ativan Inj) 2 mg Q1H PRN IV PUSH 06/28/17 19:15 (Ativan Inj) 2 mg Q15M PRN IV PUSH 06/28/17 19:15 06/29/17 01:56 (Haldol Inj) 2 mg Q15M PRN IM 06/28/17 19:15 06/29/17 04:38 (Romazicon Inj) 0.2 mg Q1M PRN IV PUSH 06/28/17 19:15 (Librium) 25 mg Q6HR PRN PO 06/29/17 02:00 06/29/17 02:32 Family History States father is family had cancer Mother is healthy living at 91 years old Social History Alcohol use every day, 3-4 bottles "big boy bottles" Current day smoker, smokes 1 pack per day Denies illicit drug use Physical Exam Vital Signs Vital Signs Date Time Temp Pulse Resp B/P (MAP) Pulse Ox O2 Delivery O2 Flow Rate FiO2 06/29/17 06:16 98.1 82 18 109/71 (84) 97 06/28/17 18:00 98.0 91 16 106/58 (74) 97 06/28/17 17:41 97.4 95 16 128/72 (90) 100 Physical Exam GENERAL: This is a thin appearing, older than stated age, well-developed patient , in no apparent distress. SKIN: Multiple raised erythematous lesion bilateral lower extremity. Warm and dry. HEAD: Normocephalic. No temporal or scalp tenderness. EYES: Pupils equal round and reactive. Extraocular motions intact. No scleral icterus. No injection or drainage. ENT: Nose without bleeding. Throat without erythema. Uvula midline. Airway patent. NECK: Trachea midline. Supple. CARDIOVASCULAR: Tachycardia without murmurs, gallops, or rubs. RESPIRATORY: Coarse breath sounds. No wheezes, rales, or rhonchi. GASTROINTESTINAL: Abdomen soft, non-tender, nondistended. Bowel sounds active 4. No guarding. MUSCULOSKELETAL: Extremities without clubbing, cyanosis, or edema. NEUROLOGICAL: Awake and alert. Confused. Oriented to self. Normal speech. Laboratory Laboratory Tests Test 06/29/17 04:28 Blood Urea Nitrogen 9 Creatinine 0.45 Random Glucose 107 Calcium Level 8.2 Sodium Level 133 Potassium Level 3.9 Chloride Level 97 Carbon Dioxide Level 30.2 Anion Gap 6 Estimat Glomerular Filtration Rate 194 Triglycerides Level 57 Cholesterol Level 118 LDL Cholesterol 37 HDL Cholesterol 69.9 Cholesterol/HDL Ratio 1.68 Result Diagram: 06/29/17 0428 Assessment and Plan Problem List: (1) Paranoid delusion ICD Code: F22 - Delusional disorders Status: Acute (2) Hyponatremia ICD Code: E87.1 - Hypo-osmolality and hyponatremia Status: Acute (3) Hypokalemia ICD Code: E87.6 - Hypokalemia Status: Acute Assessment and Plan Patient is a 57-year-old male with primary medical history of pancreatitis, osteoarthritis, bleeding ulcer in 2008 who came into the hospital under Lynn act for altered mental status. He was admitted for delirium, hyponatremia, hypo -kalemia possibly secondary to EtOH. He is now admitted to medical psychiatry unit for further evaluation. Consulted for medical management. Delirium ETOH - Labs significant for hyponatremia. Sodium is 118. - Toxicology screen only positive for alcohol. - CT of the head unremarkable study - Psychiatry team to manage delirium - [facility] Protocol - Thiamine, Folic Acid, Multivitamin - Recheck labs, monitor sodium level Hyponatremia - Hypovolemic hyponatremia. - Sodium 118. Most likely secondary to dehydration and alcoholism. - Patient was given IV fluids with sodium improvement to 133. - Continue to monitor sodium Tobacco use - Counseled. - Nicotine patch DVT prophylaxis - SCDs. Will avoid chemoprophylaxis due to history of bleeding ulcer. Code Status Full code Discussed Condition With Patient, nursing This note was transcribed by Dr. Juan Carlos Doyle personally performed the history, physical exam, and medical decision making; and confirmed the accuracy of the information in the transcribed note. Authenticated by Dr. Juan Carlos Nguyen on 06/29/17 at 14:34. Abdirahman Liriano Jun 29, 2017 14:33 Juan Carlos Link MD Jun 29, 2017 14:37
[2017-06-29] MEDS: risperiDONE 1 MG TAB PO SCH (15:00)
--- NOTE | 2017-06-29 15:05 | HHI.HP ---
Provisional Diagnosis Admission Date Jun 28, 2017 at 17:36 [place] I. Unspecified psychosis Certification of Person's Competence To Provide Express and Informed Consent I have personally examined Demian Wallace , a person being served at [facility] on, Jun 29, 2017 14:55. Express and informed consent means consent voluntarily given in writing, by a competent person, after sufficient explanation and disclosure of the subject matter involved to enable the person to make a knowing and willful decision without any element of force, fraud, deceit, duress, or other form of constraint or coercion. This person is 18 years of age or older, is not now known to be incompetent to consent to treatment with a guardian advocate, and does not have a health care surrogate or proxy currently making medical treatment decisions. I have found this person to be one of the following: [] Competent to provide express and informed consent, as defined above, for voluntary admission to this facility and is competent to provide express and informed consent for treatment. He/she has the consistent capacity to make well reasoned, willful, and knowing decisions concerning his or her medical or mental health treatment. The person fully and consistently understands the purpose of the admission for examination/placement and is fully capable of personally exercising all rights assured under [place] [] Incompetent to provide express and informed consent to voluntary admission, and this is incompetent to provide express and informed consent to treatment. The person must be transferred to involuntary status and a petition for a guardian advocate filed with the Circuit Court. [X] Refusing to provide express and informed consent to voluntary admission but is competent to provide express and informed consent for treatment. The person must be discharged or transferred to involuntary status. Form shall be completed within 24 hours of a person's arrival at the receiving facility and filed in the clinical record of each person: 1. Admitted on a voluntary basis 2. Permitted to provide express and informed consent to his/her own treatment 3. Allowed to transfer from involuntary to voluntary status 4. Prior to permitting a person to consent to his or her own treatment after having been previously found incompetent to consent to treatment. History of Present Illness Capacity: Has Capacity HPI 06/28/2017 The patient is a 57-year-old man, domicile in [place], single, unemployed, without no previous psychiatric history, no previous suicidal attempts, no previous psychiatric hospitalizations, no significant medical history, alcohol use disorder, who presented with altered mental status/ Lynn act. As per Lynn act patient barricading himself at home screaming, very distressed and called the police stating that the street was full of people trying to kill him. Medical records reviewed stated that patient was Lynn act and brought to the ED. Per ED provider patient reported that he probably some clowns have been vandalizing his house and neighborhood. He feels like they're targeting his house because he recently inherited $4300. Patient lives with his mom who is 91 years old. Consulted to psychiatry for new onset psychosis. On psychiatric evaluation patient is found calm, cooperative and pleasant. Patient is fully oriented 3, he is able to say who is the president of denies states, able to name 3 objects, repeat 3 words, recall 2 of them 5 minutes later. The patient reports being very scared "because my mother's safety my house and there are many people surrounding my house trying to kill me". He says that in the last week he has been increasingly preoccupied because they're people from the mob and clowns with weapons shooting at his window and tried to kill him. He says that he can see them everyday. He says that the reason of his hospitalization is that those people sprayed poison on him. Other than this the patient reports good mood, denies current anxiety, denies anhedonia, denies hopelessness, denies helplessness. He denies suicidal and homicidal ideation, patient doesn't seem to be insightful about the nature of perceptual disturbances. He denies visual and auditory hallucinations. However, he reports having the sensation of people watching him, following him and poisoning his food. Patient reports daily use of 6-10 beers for the last 15 years. He reports past symptoms of withdrawal. Denies DTs and seizures. Last night he was in a detox rehabilitation was 15 years ago. Denies the use of illicit drugs. 06/29/2017 patient seen for psychiatric reevaluation follow with nurse in charge Flash. Patient is very sedated due to multiple injections of Ativan to control withdrawal. However, patient continues to have persistent delusions of being followed by clowns and being sprayed with poison. Patient is also having actively visual hallucinations and is internally preoccupied. Last night patient was agitated and aggressive, very loud, voicing that they were policemen shooting in the window. At the moment of this evaluation no withdrawal symptoms, no tremors, no aggressive behavior or agitation present. Patient is compliant with his medications, no significant side effects. Review of Systems Constitutional: DENIES: Diaphoretic episodes, Fatigue, Fever, Weight gain, Weight loss, Chills, Dizziness, Change in appetite, Night Sweats Endocrine: DENIES: Heat/cold intolerance, Polydipsia, Polyuria, Polyphagia Eyes: DENIES: Blurred vision, Diplopia, Eye inflammation, Eye pain, Vision loss , Photosensitivity, Double Vision Ears, nose, mouth, throat: DENIES: Tinnitus, Hearing loss, Vertigo, Nasal discharge, Oral lesions, Throat pain, Hoarseness, Ear Pain, Running Nose, Epistaxis, Sinus Pain, Toothache, Odynophagia Respiratory: DENIES: Apneas, Cough, Snoring, Wheezing, Hemoptysis, Sputum production, Shortness of breath Cardiovascular: DENIES: Chest pain, Palpitations, Syncope, Dyspnea on Exertion , PND, Lower Extremity Edema, Orthopnea, Claudication Gastrointestinal: DENIES: Abdominal pain, Black stools, Bloody stools, Constipation, Diarrhea, Nausea, Vomiting, Difficulty Swallowing, Anorexia Musculoskeletal: DENIES: Joint pain, Muscle aches, Stiffness, Joint Swelling, Back pain, Neck pain Integumentary: DENIES: Abnormal pigmentation, Nail changes, Pruritus, Rash Hematologic/lymphatic: DENIES: Bruising, Lymphadenopathy Immunologic/allergic: DENIES: Eczema, Urticaria Neurologic: DENIES: Abnormal gait, Headache, Localized weakness, Paresthesias, Seizures, Speech Problems, Tremor, Poor Balance Past Psych History Violence risk - self (6 mos) Elevated Substance Abuse History Drugs/Alcohol past 12 months Patient drinks alcohol everyday Past Family Social History Coded Allergies: No Known Allergies (Verified , 06/27/17) Active Scripts Thiamine HCl (Gnp Vitamin B-1) 100 Mg Tab, 100 MG PO DAILY for Alcohol Detox, # 30 TAB Prov:Luis Felipe Zavala MD 06/28/17 Folic Acid (Folic Acid) 1 Mg Tablet, 1 MG PO DAILY for Alcohol Detox, #30 MG Prov:Luis Felipe Zavala MD 06/28/17 Risperidone (Risperdal) 1 Mg Tab, 1 MG PO Q12HR for Control Mood Swing, #60 TAB Prov:Luis Felipe Zavala MD 06/28/17 Current Medications Medications (Trade) Dose Ordered Sig/Anahi Route Start Time Stop Time Status Last Admin (Ativan) 1 mg Q6H PRN PO 06/28/17 19:15 (Ativan Inj) 1 mg Q6H PRN IM 06/28/17 19:15 (Tylenol) 650 mg Q4H PRN PO 06/28/17 19:15 (Milk Of Magnesia Liq) 30 ml DAILY PRN PO 06/28/17 19:15 (Mag-Al Plus Susp Liq) 30 ml Q6H PRN PO 06/28/17 19:15 (Habitrol 21 Mg Patch.24 Hr) 1 patch DAILY T-DERMAL 06/29/17 09:00 Miscellaneous Information 1 HS T-DERMAL 06/28/17 21:00 (Ativan) 1 mg Q4H PRN PO 06/28/17 19:15 (Ativan Inj) 1 mg Q4H PRN IV PUSH 06/28/17 19:15 06/28/17 21:10 (Ativan) 2 mg Q2H PRN PO 06/28/17 19:15 (Ativan Inj) 2 mg Q2H PRN IV PUSH 06/28/17 19:15 (Ativan Inj) 2 mg Q1H PRN IV PUSH 06/28/17 19:15 (Ativan Inj) 2 mg Q15M PRN IV PUSH 06/28/17 19:15 06/29/17 01:56 (Haldol Inj) 2 mg Q15M PRN IM 06/28/17 19:15 06/29/17 04:38 (Romazicon Inj) 0.2 mg Q1M PRN IV PUSH 06/28/17 19:15 (Librium) 25 mg Q6HR PRN PO 06/29/17 02:00 06/29/17 02:32 (Vitamin B1) 100 mg DAILY PO 06/30/17 09:00 (Folate) 1 mg DAILY PO 06/30/17 09:00 (Theragran) 1 tab DAILY PO 06/30/17 09:00 (risperDAL) 1 mg Q12HR PO 06/29/17 15:00 UNV Social History Patient was born and raised in [place], he lives [place] with his mother, unemployed, single, no kids, highest level of education is high school Physical Exam Vital Signs Vital Signs Date Time Temp Pulse Resp B/P (MAP) Pulse Ox O2 Delivery O2 Flow Rate FiO2 06/29/17 06:16 98.1 82 18 109/71 (84) 97 I/O 06/29/17 06/29/17 06/30/17 08:00 16:00 00:00 Intake Total 240 ml 360 ml Balance 240 ml 360 ml Mental Status Examination Appearance Elderly man, [facility], superficially cooperative, sedated Speech: Hesitant, Slow Orientation: Person, Place Thought Process: Goal Directed Thought Content: Bizarre thinking, Paranoid Hallucination Type: Visual Attention and Concentration: Abnormal Suicidal Ideation: No Previous Suicide Attempts: No Homicidal Ideation: No Previous Homicide Attempts: No Judgment: Poor Affect: Irritable Mood: Angry Motor Activity: Normal gait Assessment & Plan Problem List: (1) Unspecified psychosis ICD Codes: F29 - Unspecified psychosis not due to a substance or known physiological condition Assessment & Plan: Patient seen today for psychiatric evaluation in the midst a unit. On psychiatric evaluation today the patient presents was seems to be a new onset progressing, increasing frequency and intensity in the last 7 days, paranoia and perceptual disturbances. Perceptual disturbances consists on visual and auditory hallucinations of seeing people around his house trying to harm him. Patient is very detail in the description of this people and their intention. He reports that this people have been shooting his house, but also spraying poison him. Patient is paranoid believing that those people are trying to control him and poison him even here in the hospital. Patient seems to be very distressed and anxious about this perceptual disturbances, and seems to be completely insightless about his psychosis. Patient does not seem to have any symptomatology of depression or christos. Patient seems to be cognitively intact in a superficial cognitive assessment. At this moment the etiology of psychosis continue to be unclear but, delirium due to alcohol withdrawal, alcohol hallucinosis, delirious due to underlying medical conditions , progressive major neurocognitive process or even primary psychosis should study in the differential. Due to the level of psychosis patient represents an elevated risk of danger to self and others and needs psychiatric hospitalization for stabilization. We'll start Risperdal 1 mg twice a day for psychosis. Continue CIWA protocol. Would consider psychiatric for second opinion. We'll consult medicine to assess underlying medical conditions. fat purification worker intervention for psychosocial assessment, collateral information and to coordinate a safe discharge plan. Assessment & Plan Estimated LOS: days John Thompson MD Jun 29, 2017 15:05
[2017-06-29 17:14] LABS: HEMOGLOBIN A1a 1.3 %; HEMOGLOBIN A1b 0.9 %; HEMOGLOBIN Ao 84.4 %; HEMOGLOBIN F 1.1 %; HEMOGLOBIN LA1C 2.1 %; HEMOGLOBIN P3 3.5 %
[2017-06-29 18:00] VITALS: BP 120/73; PULSE 105; RESP 16; TEMP 98.3; O2SAT 98
[2017-06-29] MEDS: REMOVE OLD NICOTINE PATCH T-DERMAL SCH (21:00)
[2017-06-30] MEDS: HALOPERIDOL LACTATE 5 MG/ML AMP IM PRN ×5 (00:30→06:26)
[2017-06-30] MEDS: LORazepam 2 MG/ML VIAL IV PUSH PRN ×4 (01:10→14:19)
[2017-06-30 05:55] LABS: HEMATOCRIT 28.6 % (39.0-51.0); MEAN CELL VOLUME 95.1 FL (80.0-100.0); MEAN CORPUSCULAR HEMOGLOBIN 31.9 PG (27.0-34.0); MEAN CORPUSCULAR HGB CONC 33.6 % (32.0-36.0); PLATELET COUNT 89 TH/MM3 (150-450); RED BLOOD COUNT 3.01 MIL/MM3 (4.50-5.90); RED CELL DISTRIBUTION WIDTH 15.2 % (11.6-17.2); WHITE BLOOD COUNT 4.2 TH/MM3 (4.0-11.0)
[2017-06-30 05:59] LABS: REVIEW FLAG FINAL
[2017-06-30 06:05] VITALS: BP 123/59; PULSE 93; RESP 16; TEMP 98.1; O2SAT 95
[2017-06-30 06:25] LABS: POTASSIUM 3.6 MEQ/L (3.5-5.1)
[2017-06-30] MEDS: FOLIC ACID 1 MG TAB PO SCH (09:00)
[2017-06-30] MEDS: risperiDONE 1 MG TAB PO SCH ×2 (09:00→21:00)
[2017-06-30] MEDS: NICOTINE 21 MG/24 HR PATCH T-DERMAL SCH (09:00)
[2017-06-30] MEDS: THIAMINE HCL 100 MG TAB PO SCH (09:00)
[2017-06-30] MEDS: MULTIVITAMIN TAB PO SCH (09:00)
--- NOTE | 2017-06-30 09:18 | HHI.PR ---
Subjective Remarks The patient was sitting in a chair. He was lethargic. Nursing was at the bedside and stated that he received Ativan and Haldol earlier as he was scoring high on CIWA. The patient had no acute complaints. Per reports from nursing he has balance problems. Objective Vitals Vital Signs Date Time Temp Pulse Resp B/P (MAP) Pulse Ox O2 Delivery O2 Flow Rate FiO2 06/30/17 06:05 98.1 93 16 123/59 (80) 95 06/29/17 18:00 98.3 105 16 120/73 (89) 98 I/O 06/29/17 06/29/17 06/29/17 06/30/17 06/30/17 06/30/17 06:59 14:59 22:59 06:59 14:59 22:59 Intake Total 720 ml 360 ml 480 ml 120 ml 120 ml Balance 720 ml 360 ml 480 ml 120 ml 120 ml Intake Oral 720 ml 120 ml 480 ml 120 ml 120 ml Oral Supplement 240 ml # Voids 4 4 3 Result Diagram: 06/30/1748 06/30/17547 Objective Remarks GENERAL: This is a thin appearing male, older than stated age, well-developed patient, in no apparent distress. SKIN: Multiple raised erythematous lesions on the bilateral lower extremities. Warm and dry. HEAD: Normocephalic. No temporal or scalp tenderness. EYES: Pupils equal round and reactive. Extraocular motions intact. No scleral icterus. No injection or drainage. ENT: Nose without bleeding. Throat without erythema. Uvula midline. Airway patent. NECK: Trachea midline. Supple. CARDIOVASCULAR: Tachycardia without murmurs, gallops, or rubs. RESPIRATORY: Coarse breath sounds. No wheezes, rales, or rhonchi. GASTROINTESTINAL: Abdomen soft, non-tender, nondistended. Bowel sounds active 4. No guarding. MUSCULOSKELETAL: Extremities without clubbing, cyanosis, or edema. NEUROLOGICAL: Lethargic, unable to participate in exam. Medications and IVs Current Medications Medications (Trade) Dose Ordered Sig/Anahi Route Start Time Stop Time Status Last Admin (Ativan) 1 mg Q6H PRN PO 06/28/17 19:15 (Ativan Inj) 1 mg Q6H PRN IM 06/28/17 19:15 (Tylenol) 650 mg Q4H PRN PO 06/28/17 19:15 (Milk Of Magnesia Liq) 30 ml DAILY PRN PO 06/28/17 19:15 (Mag-Al Plus Susp Liq) 30 ml Q6H PRN PO 06/28/17 19:15 (Habitrol 21 Mg Patch.24 Hr) 1 patch DAILY T-DERMAL 06/29/17 09:00 Miscellaneous Information 1 HS T-DERMAL 06/28/17 21:00 06/29/17 21:00 (Ativan) 1 mg Q4H PRN PO 06/28/17 19:15 (Ativan Inj) 1 mg Q4H PRN IV PUSH 06/28/17 19:15 06/29/17 15:46 (Ativan) 2 mg Q2H PRN PO 06/28/17 19:15 (Ativan Inj) 2 mg Q2H PRN IV PUSH 06/28/17 19:15 06/29/17 22:05 (Ativan Inj) 2 mg Q1H PRN IV PUSH 06/28/17 19:15 06/30/17 06:20 (Ativan Inj) 2 mg Q15M PRN IV PUSH 06/28/17 19:15 06/29/17 01:56 (Haldol Inj) 2 mg Q15M PRN IM 06/28/17 19:15 06/30/17 06:26 (Romazicon Inj) 0.2 mg Q1M PRN IV PUSH 06/28/17 19:15 (Librium) 25 mg Q6HR PRN PO 06/29/17 02:00 06/29/17 14:30 (Vitamin B1) 100 mg DAILY PO 06/30/17 09:00 (Folate) 1 mg DAILY PO 06/30/17 09:00 (Theragran) 1 tab DAILY PO 06/30/17 09:00 (risperDAL) 1 mg Q12HR PO 06/29/17 15:00 06/29/17 15:00 A/P Problem List: (1) Paranoid delusion ICD Code: F22 - Delusional disorders Status: Acute (2) Hyponatremia ICD Code: E87.1 - Hypo-osmolality and hyponatremia Status: Acute (3) Hypokalemia ICD Code: E87.6 - Hypokalemia Status: Acute Assessment and Plan Delirium/ ETOH Labs significant for hyponatremia. Toxicology screen positive for alcohol. CT of the head unremarkable study. - Psychiatry team to manage delirium - [facility] Protocol - Thiamine, Folic Acid, Multivitamin - Cessation instruction. Hyponatremia Hypovolemic hyponatremia. Sodium 118 on admission. Most likely secondary to dehydration and alcoholism. Patient was given IV fluids with sodium improvement to 134. - Continue to monitor sodium as needed. - encourage PO intake. Tobacco use Counseled. - Nicotine patch. Anemia/ Thrombocytopenia Likely s/t alcohol induced bone marrow suppression. - check iron studies, B12, folate and Hemoccult. DVT prophylaxis: SCDs. Will avoid chemoprophylaxis due to history of bleeding ulcer. Bryce Kowalski DO Jun 30, 2017 09:18
[2017-06-30 10:21] LABS: TRANSFERRIN IRON PROFILE 205 MG/DL (200-360)
[2017-06-30 10:57] LABS: FERRITIN 314 NG/ML (26-388)
[2017-06-30] MEDS: chlordiazePOXIDE 25 MG CAP PO PRN ×2 (11:00→18:31)
--- NOTE | 2017-06-30 12:24 | PD.PSY.CON ---
Provisional Diagnosis Admission Date Jun 28, 2017 at 17:36 [place] I. Unspecified psychosis [place] II. Deferred [place] III. Denies [place] IV. Chemical dependence [place] V. 35 History of Present Illness Service Psychiatry Consult Requested By Dr. John Thompson Reason for Consult Second opinion Primary Care Physician No Primary Care Physician [facility] 06/28/2017 The patient is a 57-year-old man, domicile in [place], single, unemployed, without no previous psychiatric history, no previous suicidal attempts, no previous psychiatric hospitalizations, no significant medical history, alcohol use disorder, who presented with altered mental status/ Lynn act. As per Lynn act patient barricading himself at home screaming, very distressed and called the police stating that the street was full of people trying to kill him. Medical records reviewed stated that patient was Lynn act and brought to the ED. Per ED provider patient reported that he probably some clowns have been vandalizing his house and neighborhood. He feels like they're targeting his house because he recently inherited $4300. Patient lives with his mom who is 91 years old. Consulted to psychiatry for new onset psychosis. On psychiatric evaluation patient is found calm, cooperative and pleasant. Patient is fully oriented 3, he is able to say who is the president of denies states, able to name 3 objects, repeat 3 words, recall 2 of them 5 minutes later. The patient reports being very scared "because my mother's safety my house and there are many people surrounding my house trying to kill me". He says that in the last week he has been increasingly preoccupied because they're people from the mob and clowns with weapons shooting at his window and tried to kill him. He says that he can see them everyday. He says that the reason of his hospitalization is that those people sprayed poison on him. Other than this the patient reports good mood, denies current anxiety, denies anhedonia, denies hopelessness, denies helplessness. He denies suicidal and homicidal ideation, patient doesn't seem to be insightful about the nature of perceptual disturbances. He denies visual and auditory hallucinations. However, he reports having the sensation of people watching him, following him and poisoning his food. Patient reports daily use of 6-10 beers for the last 15 years. He reports past symptoms of withdrawal. Denies DTs and seizures. Last night he was in a detox rehabilitation was 15 years ago. Denies the use of illicit drugs. 06/29/2017 patient seen for psychiatric reevaluation follow with nurse in charge Flash. Patient is very sedated due to multiple injections of Ativan to control withdrawal. However, patient continues to have persistent delusions of being followed by clowns and being sprayed with poison. Patient is also having actively visual hallucinations and is internally preoccupied. Last night patient was agitated and aggressive, very loud, voicing that they were policemen shooting in the window. At the moment of this evaluation no withdrawal symptoms, no tremors, no aggressive behavior or agitation present. Patient is compliant with his medications, no significant side effects. 06/30/17 Patient is a 57-year-old man with no past psychiatric history significant street of alcohol and substance use who was brought into the hospital under Lynn act after police had found him there after barricading himself inside his home. Patient found to be in alcohol withdrawal currently under CIWA protocol for the same and has been noted to continue to have paranoia , perceptual disturbances (visual and auditory) and continues to have psychosis at this time. Patient was found sitting on hospital chair noted to be very lethargic, interaction was superficial as patient was noted to be disorganized, noted to be responding to internal stimuli and paranoid. Patient at this time isnt noted to continue to be going through alcohol withdrawal with recent CIWA scores of 20, 6, 14, 17, and recently this morning 15. Patient at this time will remain on close observations for now. Review of Systems Except as stated in HPI: all other systems reviewed are Neg Past Family Social History Coded Allergies: No Known Allergies (Verified , 06/27/17) Active Scripts Thiamine HCl (p Vitamin B-1) 100 Mg Tab, 100 MG PO DAILY for Alcohol Detox, # 30 TAB Prov:Luis Felipe Zavala MD 06/28/17 Folic Acid (Folic Acid) 1 Mg Tablet, 1 MG PO DAILY for Alcohol Detox, #30 MG Prov:Luis Felipe Zavala MD 06/28/17 Risperidone (Risperdal) 1 Mg Tab, 1 MG PO Q12HR for Control Mood Swing, #60 TAB Prov:Luis Felipe Zavala MD 06/28/17 Current Medications Medications (Trade) Dose Ordered Sig/Anahi Route Start Time Stop Time Status Last Admin (Ativan) 1 mg Q6H PRN PO 06/28/17 19:15 (Ativan Inj) 1 mg Q6H PRN IM 06/28/17 19:15 (Tylenol) 650 mg Q4H PRN PO 06/28/17 19:15 (Milk Of Magnesia Liq) 30 ml DAILY PRN PO 06/28/17 19:15 (Mag-Al Plus Susp Liq) 30 ml Q6H PRN PO 06/28/17 19:15 (Habitrol 21 Mg Patch.24 Hr) 1 patch DAILY T-DERMAL 06/29/17 09:00 06/30/17 09:00 Miscellaneous Information 1 HS T-DERMAL 06/28/17 21:00 06/29/17 21:00 (Ativan) 1 mg Q4H PRN PO 06/28/17 19:15 (Ativan Inj) 1 mg Q4H PRN IV PUSH 06/28/17 19:15 06/29/17 15:46 (Ativan) 2 mg Q2H PRN PO 06/28/17 19:15 (Ativan Inj) 2 mg Q2H PRN IV PUSH 06/28/17 19:15 06/29/17 22:05 (Ativan Inj) 2 mg Q1H PRN IV PUSH 06/28/17 19:15 06/30/17 06:20 (Ativan Inj) 2 mg Q15M PRN IV PUSH 06/28/17 19:15 06/29/17 01:56 (Haldol Inj) 2 mg Q15M PRN IM 06/28/17 19:15 06/30/17 06:26 (Romazicon Inj) 0.2 mg Q1M PRN IV PUSH 06/28/17 19:15 (Librium) 25 mg Q6HR PRN PO 06/29/17 02:00 06/29/17 14:30 (Vitamin B1) 100 mg DAILY PO 06/30/17 09:00 06/30/17 09:00 (Folate) 1 mg DAILY PO 06/30/17 09:00 06/30/17 09:00 (Theragran) 1 tab DAILY PO 06/30/17 09:00 06/30/17 09:00 (risperDAL) 1 mg Q12HR PO 06/29/17 15:00 06/30/17 09:00 Social History As per chart, Patient was born and raised in [place], he lives [place] with his mother, unemployed, single, no kids, highest level of education is high school Patient's Strengths (min. 2) Verbal, communicative Physical Exam Noted to be lethargic, no tremors, no EPS, no sweating, no psychomotor agitation or retardation noted as patient was recently given medications. Vital Signs Vital Signs Date Time Temp Pulse Resp B/P (MAP) Pulse Ox O2 Delivery O2 Flow Rate FiO2 06/30/17 06:05 98.1 93 16 123/59 (80) 95 I/O 06/30/17 06/30/17 06/30/17 07:59 15:59 23:59 Intake Total 120 ml 120 ml Balance 120 ml 120 ml Lab Results Test 06/30/17 05:48 White Blood Count 4.2 TH/MM3 Red Blood Count 3.01 MIL/MM3 Hemoglobin 9.6 GM/DL Hematocrit 28.6 % Mean Corpuscular Volume 95.1 FL Mean Corpuscular Hemoglobin 31.9 PG Mean Corpuscular Hemoglobin Concent 33.6 % Red Cell Distribution Width 15.2 % Platelet Count 89 TH/MM3 Mean Platelet Volume 7.9 FL Blood Urea Nitrogen 8 MG/DL Creatinine 0.48 MG/DL Random Glucose 103 MG/DL Calcium Level 8.7 MG/DL Sodium Level 134 MEQ/L Potassium Level 3.6 MEQ/L Chloride Level 99 MEQ/L Carbon Dioxide Level 27.0 MEQ/L Anion Gap 8 MEQ/L Estimat Glomerular Filtration Rate 180 ML/MIN Iron Level 24 MCG/DL Total Iron Binding Capacity 287 MCG/DL Percent Iron Saturation 8.4 % Ferritin 314 NG/ML Vitamin B12 Level 774 PG/ML Folate 15.1 NG/ML Mental Status Examination Appearance Appears stated age, in hospital [facility], sitting in hospital bed, noted to be lethargic and superficially cooperative interview, poor eye contact. Speech: Hesitant, Slow Orientation: Person Memory: Impaired (describe) Thought Process: Other (disorganized) Thought Content: Paranoid Language Fluent nonspontaneous Hallucination Type: Visual Attention and Concentration: Abnormal (lethargic) Suicidal Ideation: No Previous Suicide Attempts: No Homicidal Ideation: No Previous Homicide Attempts: No Insight: Poor Judgment: Poor Affect: Other (lethargic) Mood: Other (okay) Assessment & Plan Problem List: (1) Unspecified psychosis ICD Codes: F29 - Unspecified psychosis not due to a substance or known physiological condition Assessment & Plan SECOND OPINION: Given the circumstances of the patient's presentation here and his presentation on my examination today, I concur with Dr. Thompson that the patient meets criteria for involuntary psychiatric hospitalization under the Lynn act. I have completed the second opinion paperwork. Patient this time continues to be noted to be disorganized, responding to internal stimuli, with paranoia and currently undergoing alcohol withdrawal this patient noted to have high CIWA scores. Continue current treatment. Discharge planning in progress Luis Felipe Thrasher MD Jun 30, 2017 12:24
[2017-06-30 18:38] VITALS: BP 125/77; PULSE 96; RESP 17; TEMP 97.4; O2SAT 98
[2017-06-30] MEDS: REMOVE OLD NICOTINE PATCH T-DERMAL SCH (21:00)
[2017-07-01 05:56] VITALS: BP 114/71; PULSE 102; RESP 16; TEMP 98.2; O2SAT 97
[2017-07-01] MEDS: MULTIVITAMIN TAB PO SCH (08:21)
[2017-07-01] MEDS: NICOTINE 21 MG/24 HR PATCH T-DERMAL SCH (08:21)
[2017-07-01] MEDS: chlordiazePOXIDE 25 MG CAP PO PRN ×3 (08:21→11:00)
[2017-07-01] MEDS: FOLIC ACID 1 MG TAB PO SCH (08:21)
[2017-07-01] MEDS: THIAMINE HCL 100 MG TAB PO SCH (08:21)
[2017-07-01] MEDS: risperiDONE 1 MG TAB PO SCH ×2 (08:21→20:21)
[2017-07-01] MEDS: LORazepam 2 MG/ML VIAL IV PUSH PRN (08:57)
--- NOTE | 2017-07-01 09:13 | HHI.PR ---
Subjective Remarks The patient was in a chair in the hallway. He wanted to be taken to a different room. Nursing stated that he was oriented but overall confused. It appears that the patient has been having difficulty eating. He has a persistent cough. Objective Vitals Vital Signs Date Time Temp Pulse Resp B/P (MAP) Pulse Ox O2 Delivery O2 Flow Rate FiO2 07/01/17 05:56 98.2 102 16 114/71 (85) 97 06/30/17 18:38 97.4 96 17 125/77 (93) 98 I/O 06/30/17 06/30/17 06/30/17 07/01/17 07/01/17 07/01/17 07:00 15:00 23:00 07:00 15:00 23:00 Intake Total 120 ml 360 ml 360 ml Balance 120 ml 360 ml 360 ml Intake Oral 120 ml 360 ml 360 ml # Voids 3 3 Result Diagram: 06/30/17 0548 06/30/17 0548 Objective Remarks GENERAL: This is a thin appearing male, older than stated age, well-developed patient, in no apparent distress. SKIN: Multiple raised erythematous plaques on the bilateral lower extremities. Warm and dry. HEAD: Normocephalic. No temporal or scalp tenderness. EYES: Pupils equal round and reactive. Extraocular motions intact. No scleral icterus. No injection or drainage. ENT: Nose without bleeding. Throat without erythema. Uvula midline. Airway patent. NECK: Trachea midline. Supple. CARDIOVASCULAR: Tachycardia without murmurs, gallops, or rubs. RESPIRATORY: Coarse breath sounds. No wheezes, rales, or rhonchi. GASTROINTESTINAL: Abdomen soft, non-tender, nondistended. Bowel sounds active 4. No guarding. MUSCULOSKELETAL: Extremities without clubbing, cyanosis, or edema. NEUROLOGICAL: Confused, unable to participate in exam. Medications and IVs Current Medications Medications (Trade) Dose Ordered Sig/Anahi Route Start Time Stop Time Status Last Admin (Ativan) 1 mg Q6H PRN PO 06/28/17 19:15 (Ativan Inj) 1 mg Q6H PRN IM 06/28/17 19:15 (Tylenol) 650 mg Q4H PRN PO 06/28/17 19:15 (Milk Of Magnesia Liq) 30 ml DAILY PRN PO 06/28/17 19:15 (Mag-Al Plus Susp Liq) 30 ml Q6H PRN PO 06/28/17 19:15 (Habitrol 21 Mg Patch.24 Hr) 1 patch DAILY T-DERMAL 06/29/17 09:00 07/01/17 08:21 Miscellaneous Information 1 HS T-DERMAL 06/28/17 21:00 06/29/17 21:00 (Ativan) 1 mg Q4H PRN PO 06/28/17 19:15 (Ativan Inj) 1 mg Q4H PRN IV PUSH 06/28/17 19:15 06/29/17 15:46 (Ativan) 2 mg Q2H PRN PO 06/28/17 19:15 (Ativan Inj) 2 mg Q2H PRN IV PUSH 06/28/17 19:15 07/01/17 08:57 (Ativan Inj) 2 mg Q1H PRN IV PUSH 06/28/17 19:15 06/30/17 06:20 (Ativan Inj) 2 mg Q15M PRN IV PUSH 06/28/17 19:15 06/30/17 14:19 (Haldol Inj) 2 mg Q15M PRN IM 06/28/17 19:15 06/30/17 06:26 (Romazicon Inj) 0.2 mg Q1M PRN IV PUSH 06/28/17 19:15 (Librium) 25 mg Q6HR PRN PO 06/29/17 02:00 07/01/17 08:21 (Vitamin B1) 100 mg DAILY PO 06/30/17 09:00 07/01/17 08:21 (Folate) 1 mg DAILY PO 06/30/17 09:00 07/01/17 08:21 (Theragran) 1 tab DAILY PO 06/30/17 09:00 07/01/17 08:21 (risperDAL) 1 mg Q12HR PO 06/29/17 15:00 07/01/17 08:21 A/P Problem List: (1) Paranoid delusion ICD Code: F22 - Delusional disorders Status: Acute (2) Hyponatremia ICD Code: E87.1 - Hypo-osmolality and hyponatremia Status: Acute (3) Hypokalemia ICD Code: E87.6 - Hypokalemia Status: Acute Assessment and Plan Encephalopathy/ ETOH Labs significant for hyponatremia. Toxicology screen positive for alcohol. CT of the head unremarkable study. - Psychiatry team to manage delirium - CIWA Protocol. Improving 07/01. - Thiamine, Folic Acid, Multivitamin - Cessation instruction. - cognitive eval with speech therapy. - PT eval. Hyponatremia Hypovolemic hyponatremia. Sodium 118 on admission. Most likely secondary to dehydration and alcoholism. Patient was given IV fluids with sodium improvement to 134. - Continue to monitor sodium as needed. - encourage PO intake. Tobacco use Counseled. - Nicotine patch. Anemia/ Thrombocytopenia Likely s/t alcohol induced bone marrow suppression. Iron studies noted. - check Hemoccult. Cough The pt has difficulty eating per nursing and has had a persistent cough. Concern for aspiration. - swallow eval. - CXR pending. - oxygen and nebs as needed. DVT prophylaxis: SCDs. Will avoid chemoprophylaxis due to history of bleeding ulcer. Bryce Kowalski DO Jul 01, 2017 09:13
--- NOTE | 2017-07-01 10:41 | RADRPT ---
EXAM DATE/TIME: 07/01/2017 10:17 [facility] COMPARISON: No previous studies available for comparison. INDICATIONS : Evaluate for pneumonia MEDICAL HISTORY : Pancreatitis. SURGICAL HISTORY : Jaw surgery ENCOUNTER: Initial ACUITY: 4 - 6 days PAIN SCORE: Non-responsive. LOCATION: chest FINDINGS: A single view of the chest demonstrates the lungs to be symmetrically aerated without evidence of mas s, infiltrate or effusion. The cardiomediastinal contours are unremarkable. Osseous structures are intact. CONCLUSION: No acute cardiopulmonary findings. Roshan Orourke MD on July 01, 2017 at 10:39 Board Certified Radiologist. This report was verified electronically.
--- NOTE | 2017-07-01 16:48 | HHI.PYPN ---
Subjective Remarks Patient seen for follow-up, chart reviewed. After discussion with nursing staff patient slightly more awake this morning but was still noted to be disorganized and confused at times patient was visited by mother hitting 25% of his meals, speech evaluation done yesterday at the [facility] scores continue to be elevated. Patient has required 25 mg twice a day of Librium for the past 2 days along with when necessary Ativan for symptoms of withdrawal. Patient found lying in hospital bed noted to be attempting to get out of bed and required redirection. Patient noted to be still disorganized and confused, alert and oriented only to person and year. Patient states that he is brought to the hospital because police came and that his mother was present at that time. Patient not oriented that he is in the hospital at this time. Review of Systems Except as stated in HPI: all other systems reviewed are Neg Objective Alert: Yes [place]: Person, Date (-year only) Mood: Anxious Affect: Other (lethargic but attempted to get out of bed) Memory Intact: Comment (impaired) Hallucinations: Other (unable to assess at this time) Delusions: Yes Delusion Type: Paranoid Suicidal: Ideation (denies) Homicidal: Ideation (denies) Insight/Judgment Poor insight, impulse control and judgment Vitals/IOs Vital Signs Date Time Temp Pulse Resp B/P (MAP) Pulse Ox O2 Delivery O2 Flow Rate FiO2 07/01/17 05:56 98.2 102 16 114/71 (85) 97 Intake and Output 07/01/17 07/01/17 07/02/17 08:00 16:00 00:00 Intake Total 120 ml 240 ml Balance 120 ml 240 ml Assessment & Plan Problem List: (1) Unspecified psychosis ICD Codes: F29 - Unspecified psychosis not due to a substance or known physiological condition (2) Alcohol withdrawal ICD Codes: F10.239 - Alcohol dependence with withdrawal, unspecified Status: Acute Assessment & Plan Patient at this time continues to be in alcohol withdrawal with continued elevated CIWA scores. Patient has required 25 mg of Librium twice a day for the past 2 days along with supplemental Ativan. Patient will be put on standing Librium 25 mg by mouth twice a day continue CIWA protocol. Continue monitoring for symptoms and signs of withdrawal. Continue current treatment patient replaced with one-to-one observation for safety. Discharge planning in progress Justification for Cont. Inpt. Patient at risk for further decompensation if at a lower level of care Luis Felipe Thrasher MD Jul 01, 2017 16:48
[2017-07-01 18:00] VITALS: BP 97/53; PULSE 101; RESP 16; TEMP 97.5; O2SAT 86
[2017-07-01] MEDS: REMOVE OLD NICOTINE PATCH T-DERMAL SCH (20:21)
[2017-07-01] MEDS: chlordiazePOXIDE 25 MG CAP PO SCH (20:21)
[2017-07-01] MEDS: HALOPERIDOL LACTATE 5 MG/ML AMP IM PRN (21:14)
[2017-07-02] MEDS: LORazepam 2 MG/ML VIAL IV PUSH PRN ×4 (01:04→21:32)
[2017-07-02] MEDS: HALOPERIDOL LACTATE 5 MG/ML AMP IM PRN (04:53)
[2017-07-02 06:07] VITALS: BP 114/57; PULSE 106; RESP 18; TEMP 98.8; O2SAT 96
[2017-07-02] MEDS: NICOTINE 21 MG/24 HR PATCH T-DERMAL SCH (08:32)
[2017-07-02] MEDS: MULTIVITAMIN TAB PO SCH (08:36)
[2017-07-02] MEDS: THIAMINE HCL 100 MG TAB PO SCH (08:36)
[2017-07-02] MEDS: risperiDONE 1 MG TAB PO SCH ×3 (08:36→21:00)
[2017-07-02] MEDS: chlordiazePOXIDE 25 MG CAP PO SCH ×3 (08:37→22:00)
[2017-07-02] MEDS: FOLIC ACID 1 MG TAB PO SCH (08:37)
[2017-07-02] MEDS ORDERED: diphenhydrAMINE HCL 2%/ZINC ACETATE 0.1% CREAM 30 APPLIC/30 GM TUBE TOPICAL PRN (10:00)
[2017-07-02] MEDS ORDERED: DEXT 5%-NACL 0.9% 1000 ML INJ 1,000 ML IV SCH (10:00)
--- NOTE | 2017-07-02 10:00 | HHI.PR ---
Subjective Remarks The patient was lethargic in bed. He had received IV Ativan recently. Discussed with nursing at the bedside. No acute concerns. Objective Vitals Vital Signs Date Time Temp Pulse Resp B/P (MAP) Pulse Ox O2 Delivery O2 Flow Rate FiO2 07/02/17 06:07 98.8 106 18 114/57 (76) 96 07/01/17 18:00 97.5 101 16 97/53 (68) 86 I/O 07/01/17 07/01/17 07/01/17 07/02/17 07/02/17 07/02/17 06:59 14:59 22:59 06:59 14:59 22:59 Intake Total 720 ml 1080 ml 240 ml Balance 720 ml 1080 ml 240 ml Intake Oral 720 ml 1080 ml 240 ml IV Total 0 ml # Voids 1 4 2 Result Diagram: 06/30/17 0548 06/30/17 0548 Imaging Last Impressions Chest X-Ray 07/01/17 0000 Signed Impressions: Service Date/Time: June 10:17 - CONCLUSION: No acute cardiopulmonary findings. Roshan Orourke MD Objective Remarks GENERAL: This is a thin appearing male, older than stated age, well-developed patient, in no apparent distress. SKIN: Multiple raised erythematous plaques on the bilateral lower extremities. Warm and dry. HEAD: Normocephalic. No temporal or scalp tenderness. EYES: Pupils equal round and reactive. Extraocular motions intact. No scleral icterus. No injection or drainage. ENT: Nose without bleeding. Throat without erythema. Uvula midline. Airway patent. NECK: Trachea midline. Supple. CARDIOVASCULAR: Tachycardia without murmurs, gallops, or rubs. RESPIRATORY: Coarse breath sounds. No wheezes, rales, or rhonchi. GASTROINTESTINAL: Abdomen soft, non-tender, nondistended. Bowel sounds active 4. No guarding. MUSCULOSKELETAL: Extremities without clubbing, cyanosis, or edema. NEUROLOGICAL: Confused, unable to participate in exam. Medications and IVs Current Medications Medications (Trade) Dose Ordered Sig/Anahi Route Start Time Stop Time Status Last Admin (Ativan) 1 mg Q6H PRN PO 06/28/17 19:15 (Ativan Inj) 1 mg Q6H PRN IM 06/28/17 19:15 (Tylenol) 650 mg Q4H PRN PO 06/28/17 19:15 (Milk Of Magnesia Liq) 30 ml DAILY PRN PO 06/28/17 19:15 (Mag-Al Plus Susp Liq) 30 ml Q6H PRN PO 06/28/17 19:15 (Habitrol 21 Mg Patch.24 Hr) 1 patch DAILY T-DERMAL 06/29/17 09:00 07/01/17 08:21 Miscellaneous Information 1 HS T-DERMAL 06/28/17 21:00 06/29/17 21:00 (Ativan) 1 mg Q4H PRN PO 06/28/17 19:15 (Ativan Inj) 1 mg Q4H PRN IV PUSH 06/28/17 19:15 06/29/17 15:46 (Ativan) 2 mg Q2H PRN PO 06/28/17 19:15 07/01/17 20:21 (Ativan Inj) 2 mg Q2H PRN IV PUSH 06/28/17 19:15 07/02/17 08:37 (Ativan Inj) 2 mg Q1H PRN IV PUSH 06/28/17 19:15 06/30/17 06:20 (Ativan Inj) 2 mg Q15M PRN IV PUSH 06/28/17 19:15 06/30/17 14:19 (Haldol Inj) 2 mg Q15M PRN IM 06/28/17 19:15 07/02/17 04:53 (Romazicon Inj) 0.2 mg Q1M PRN IV PUSH 06/28/17 19:15 (Vitamin B1) 100 mg DAILY PO 06/30/17 09:00 07/02/17 08:36 (Folate) 1 mg DAILY PO 06/30/17 09:00 07/02/17 08:37 (Theragran) 1 tab DAILY PO 06/30/17 09:00 07/02/17 08:36 (risperDAL) 1 mg Q12HR PO 06/29/17 15:00 07/02/17 08:36 (Librium) 25 mg Q12HR PO 07/01/17 21:00 07/02/17 08:37 A/P Problem List: (1) Paranoid delusion ICD Code: F22 - Delusional disorders Status: Acute (2) Hyponatremia ICD Code: E87.1 - Hypo-osmolality and hyponatremia Status: Acute (3) Hypokalemia ICD Code: E87.6 - Hypokalemia Status: Acute Assessment and Plan Encephalopathy/ ETOH Labs significant for hyponatremia. Toxicology screen positive for alcohol. CT of the head unremarkable study. - Psychiatry team to manage delirium - CIWA Protocol. Still requiring IV Ativan 07/02. - Thiamine, Folic Acid, Multivitamin - Cessation instruction. - cognitive eval with speech therapy. - PT eval. Hyponatremia Hypovolemic hyponatremia. Sodium 118 on admission. Most likely secondary to dehydration and alcoholism. Patient was given IV fluids with sodium improvement to 134. - Continue to monitor sodium as needed. - encourage PO intake. Dehydration The pt appears dry. - will order 1 L D5NS 07/02. Tobacco use Counseled. - Nicotine patch. Anemia/ Thrombocytopenia Likely s/t alcohol induced bone marrow suppression. Iron studies noted. - check Hemoccult. Cough The pt has difficulty eating per nursing and has had a persistent cough. Concern for aspiration. CXR unremarkable. - diet per speech. - oxygen and nebs as needed. DVT prophylaxis: SCDs. Will avoid chemoprophylaxis due to history of bleeding ulcer. Bryce Kowalski DO Jul 02, 2017 10:00
[2017-07-02 12:04] LABS: BICARBONATE 25.8 MEQ/L (21.0-32.0); POTASSIUM 3.8 MEQ/L (3.5-5.1)
--- NOTE | 2017-07-02 13:47 | RADRPT ---
EXAM DATE/TIME: 07/02/2017 13:28 [facility] COMPARISON: CHEST SINGLE AP, July 01, 2017, 10:17. INDICATIONS : Dyspnea. MEDICAL HISTORY : Smoker. SURGICAL HISTORY : None. ENCOUNTER: Subsequent ACUITY: 2 days PAIN SCORE: Non-responsive. LOCATION: Bilateral chest FINDINGS: A single view of the chest demonstrates the lungs to be symmetrically aerated without evidence of mas s, infiltrate or effusion. The cardiomediastinal contours are unremarkable. Osseous structures are intact. CONCLUSION: 1. No acute cardiopulmonary disease or significant interval change. Clayton Kolb MD on July 02, 2017 at 13:45 Board Certified Radiologist. This report was verified electronically.
[2017-07-02 15:38] LABS: AUTOMATED NEUTROPHIL # 3.1 TH/MM3 (1.8-7.7); BASOPHIL % 0.4 % (0.0-2.0); EOSINOPHIL % 0.7 % (0.0-4.0); HEMATOCRIT 32.8 % (39.0-51.0); HEMO FLAGS DIFF FINAL; LYMPH % 15.9 % (9.0-44.0); LYMPHOCYTE # 0.8 TH/MM3 (1.0-4.8); MEAN CELL VOLUME 95.1 FL (80.0-100.0); MEAN CORPUSCULAR HEMOGLOBIN 30.8 PG (27.0-34.0); MEAN CORPUSCULAR HGB CONC 32.4 % (32.0-36.0); PLATELET COUNT 151 TH/MM3 (150-450); RED BLOOD COUNT 3.45 MIL/MM3 (4.50-5.90); WHITE BLOOD COUNT 5.3 TH/MM3 (4.0-11.0)
[2017-07-02 18:00] VITALS: BP 121/76; PULSE 86; RESP 18; TEMP 97.8; O2SAT 99
--- NOTE | 2017-07-02 18:17 | HHI.PYPN ---
Subjective Remarks Patient seen for follow-up, chart review. As per nursing report and discussion with staff patient continued to have elevated CIWA scores requiring at least 3 doses of 2 mg of Ativan over the course of the evening and last night along with 1 dose of Haldol for agitation. Patient found lying in hospital bed with one-to-one sitter for observation. Patient noted to be slightly alert continues to be lethargic from medications he had received this morning. Patient noted to have secretions during coughing. Patient disoriented and confused as patient currently still in withdrawal. Review of Systems Except as stated in HPI: all other systems reviewed are Neg Objective Alert: Yes [place]: Person, Date (-year only) Mood: Anxious Affect: Other (lethargic) Memory Intact: Comment (impaired) Hallucinations: Other (unable to assess at this time) Delusions: Yes Delusion Type: Paranoid Suicidal: Ideation (denies) Homicidal: Ideation (denies) Insight/Judgment Poor insight, impulse control and judgment Labs Labs reviewed. Test 07/02/17 11:09 07/02/17 15:23 Blood Urea Nitrogen 9 MG/DL Creatinine 0.60 MG/DL Random Glucose 92 MG/DL Calcium Level 8.5 MG/DL Sodium Level 136 MEQ/L Potassium Level 3.8 MEQ/L Chloride Level 102 MEQ/L Carbon Dioxide Level 25.8 MEQ/L Anion Gap 8 MEQ/L Estimat Glomerular Filtration Rate 139 ML/MIN White Blood Count 5.3 TH/MM3 Red Blood Count 3.45 MIL/MM3 Hemoglobin 10.7 GM/DL Hematocrit 32.8 % Mean Corpuscular Volume 95.1 FL Mean Corpuscular Hemoglobin 30.8 PG Mean Corpuscular Hemoglobin Concent 32.4 % Red Cell Distribution Width 15.0 % Platelet Count 151 TH/MM3 Mean Platelet Volume 7.6 FL Neutrophils (%) (Auto) 59.0 % Lymphocytes (%) (Auto) 15.9 % Monocytes (%) (Auto) 24.0 % Eosinophils (%) (Auto) 0.7 % Basophils (%) (Auto) 0.4 % Neutrophils # (Auto) 3.1 TH/MM3 Lymphocytes # (Auto) 0.8 TH/MM3 Monocytes # (Auto) 1.3 TH/MM3 Eosinophils # (Auto) 0.0 TH/MM3 Basophils # (Auto) 0.0 TH/MM3 CBC Comment DIFF FINAL Differential Comment Vitals/IOs Vital Signs Date Time Temp Pulse Resp B/P (MAP) Pulse Ox O2 Delivery O2 Flow Rate FiO2 07/02/17 18:00 97.8 86 18 121/76 (91) 99 Intake and Output 07/02/17 07/02/17 07/02/17 07:59 15:59 23:59 Intake Total 240 ml 60 ml Balance 240 ml 60 ml Assessment & Plan Problem List: (1) Unspecified psychosis ICD Codes: F29 - Unspecified psychosis not due to a substance or known physiological condition (2) Alcohol withdrawal ICD Codes: F10.239 - Alcohol dependence with withdrawal, unspecified Status: Acute Assessment & Plan Patient at this time continues to be noted to have elevated scores on CIWA which she required 3 doses of 2 mg of Ativan and wasn't dose of Haldol last evening. This morning patient required 2 doses of 2 mg of Ativan. We'll increase Librium to 25 mg by mouth every 8 hours as current regimen appears to be insufficient as patient continues to require extra doses of Ativan today aside from standing Librium. Continue to monitor medication response average drug reactions. Monitor for respiratory depression as Librium continues to be adjusted. Justification for Cont. Inpt. Patient at risk for further decompensation if at a lower level of care Luis Felipe Thrasher MD Jul 02, 2017 18:17
[2017-07-02] MEDS: REMOVE OLD NICOTINE PATCH T-DERMAL SCH (20:27)
[2017-07-02] MEDS ORDERED: chlordiazePOXIDE 25 MG CAP PO SCH (21:00)
[2017-07-03] MEDS: LORazepam 1 MG TAB PO PRN (03:40)
[2017-07-03 05:56] VITALS: BP 114/78; PULSE 98; RESP 16; TEMP 97.8; O2SAT 97
[2017-07-03] MEDS: chlordiazePOXIDE 25 MG CAP PO SCH ×3 (06:21→20:24)
[2017-07-03 08:00] VITALS: BP_SYST 143; BP_SYST 96; BP_DIAS 58; BP_DIAS 90; PULSE 84; TEMP 99.3; O2SAT 94
[2017-07-03] MEDS: NICOTINE 21 MG/24 HR PATCH T-DERMAL SCH (09:00)
[2017-07-03] MEDS: MULTIVITAMIN TAB PO SCH (09:00)
[2017-07-03] MEDS: risperiDONE 1 MG TAB PO SCH ×2 (09:00→19:54)
[2017-07-03] MEDS: THIAMINE HCL 100 MG TAB PO SCH (09:00)
[2017-07-03] MEDS: FOLIC ACID 1 MG TAB PO SCH (09:00)
[2017-07-03] MEDS: REMOVE OLD NICOTINE PATCH T-DERMAL SCH (09:49)
--- NOTE | 2017-07-03 10:09 | HHI.PR ---
Subjective Remarks The patient was laying in bed. He was lethargic. Per nursing he was agitated earlier on. Objective Vitals Vital Signs Date Time Temp Pulse Resp B/P (MAP) Pulse Ox O2 Delivery O2 Flow Rate FiO2 07/03/17 05:56 97.8 98 16 114/78 (90) 97 07/02/17 18:00 97.8 86 18 121/76 (91) 99 I/O 07/02/17 07/02/17 07/02/17 07/03/17 07/03/17 07/03/17 06:59 14:59 22:59 06:59 14:59 22:59 Intake Total 240 ml 60 ml 1000 ml Balance 240 ml 60 ml 1000 ml Intake Oral 240 ml 60 ml 0 ml IV Total 0 ml 1000 ml # Voids 2 1 1 Result Diagram: 07/02/17 1523 07/02/17 1109 Imaging Last Impressions Chest X-Ray 07/02/17 0000 Signed Impressions: Service Date/Time: Sunday, July 02, 2017 13:28 - CONCLUSION: 1. No acute cardiopulmonary disease or significant interval change. Clayton Kolb MD Objective Remarks GENERAL: This is a thin appearing male, older than stated age, well-developed patient, in no apparent distress. SKIN: Multiple raised erythematous plaques on the bilateral lower extremities. Warm and dry. HEAD: Normocephalic. No temporal or scalp tenderness. EYES: Pupils equal round and reactive. Extraocular motions intact. No scleral icterus. No injection or drainage. ENT: Nose without bleeding. Throat without erythema. Uvula midline. Airway patent. NECK: Trachea midline. Supple. CARDIOVASCULAR: Tachycardia without murmurs, gallops, or rubs. RESPIRATORY: Coarse breath sounds. No wheezes, rales, or rhonchi. GASTROINTESTINAL: Abdomen soft, non-tender, nondistended. Bowel sounds active 4. No guarding. MUSCULOSKELETAL: Extremities without clubbing, cyanosis, or edema. NEUROLOGICAL: Confused, unable to participate in exam. Medications and IVs Current Medications Medications (Trade) Dose Ordered Sig/Anahi Route Start Time Stop Time Status Last Admin (Ativan) 1 mg Q6H PRN PO 06/28/17 19:15 07/03/17 03:40 (Ativan Inj) 1 mg Q6H PRN IM 06/28/17 19:15 (Tylenol) 650 mg Q4H PRN PO 06/28/17 19:15 (Milk Of Magnesia Liq) 30 ml DAILY PRN PO 06/28/17 19:15 (Mag-Al Plus Susp Liq) 30 ml Q6H PRN PO 06/28/17 19:15 (Habitrol 21 Mg Patch.24 Hr) 1 patch DAILY T-DERMAL 06/29/17 09:00 07/03/17 09:00 Miscellaneous Information 1 HS T-DERMAL 06/28/17 21:00 06/29/17 21:00 (Ativan) 1 mg Q4H PRN PO 06/28/17 19:15 (Ativan Inj) 1 mg Q4H PRN IV PUSH 06/28/17 19:15 06/29/17 15:46 (Ativan) 2 mg Q2H PRN PO 06/28/17 19:15 07/01/17 20:21 (Ativan Inj) 2 mg Q2H PRN IV PUSH 06/28/17 19:15 07/02/17 21:32 (Ativan Inj) 2 mg Q1H PRN IV PUSH 06/28/17 19:15 06/30/17 06:20 (Ativan Inj) 2 mg Q15M PRN IV PUSH 06/28/17 19:15 06/30/17 14:19 (Haldol Inj) 2 mg Q15M PRN IM 06/28/17 19:15 07/02/17 04:53 (Romazicon Inj) 0.2 mg Q1M PRN IV PUSH 06/28/17 19:15 (Vitamin B1) 100 mg DAILY PO 06/30/17 09:00 07/02/17 08:36 (Folate) 1 mg DAILY PO 06/30/17 09:00 07/02/17 08:37 (Theragran) 1 tab DAILY PO 06/30/17 09:00 07/02/17 08:36 (risperDAL) 1 mg Q12HR PO 06/29/17 15:00 07/02/17 08:36 (Benadryl 2% Cream) 1 applic TID PRN TOPICAL 07/02/17 10:00 (Librium) 25 mg Q8HR PO 07/02/17 22:00 07/03/17 06:21 A/P Problem List: (1) Paranoid delusion ICD Code: F22 - Delusional disorders Status: Acute (2) Hyponatremia ICD Code: E87.1 - Hypo-osmolality and hyponatremia Status: Acute (3) Hypokalemia ICD Code: E87.6 - Hypokalemia Status: Acute Assessment and Plan Encephalopathy/ ETOH Labs significant for hyponatremia. Toxicology screen positive for alcohol. CT of the head unremarkable study. - Psychiatry team to manage delirium - [facility] Protocol. Standing Librium per psych. - Thiamine, Folic Acid, Multivitamin - Cessation instruction. - cognitive eval with speech therapy. - PT eval. - check LFTs, ammonia level. Hyponatremia Hypovolemic hyponatremia. Sodium 118 on admission. Most likely secondary to dehydration and alcoholism. Patient was given IV fluids with sodium improvement to 134. - Continue to monitor sodium as needed. - encourage PO intake. Dehydration The pt appears dry. - S/p 1 L D5NS 07/02. Tobacco use Counseled. - Nicotine patch. Anemia/ Thrombocytopenia Likely s/t alcohol induced bone marrow suppression. Iron studies noted. - check Hemoccult. Cough The pt has difficulty eating per nursing and has had a persistent cough. Concern for aspiration. CXR unremarkable. - diet per speech. - oxygen and nebs as needed. DVT prophylaxis: SCDs. Will avoid chemoprophylaxis due to history of bleeding ulcer. Discharge Planning Per Bryce Lord DO Jul 03, 2017 10:09
[2017-07-03 11:28] LABS: INDIRECT BILIRUBIN 0.4 MG/DL (0.0-0.8); TOTAL BILIRUBIN ADULT 0.7 MG/DL (0.2-1.0)
[2017-07-03 12:12] LABS: BLOOD, URINE NEG (NEG); COMMENT (UR) CULT NOT INDICATED; CULTURE IF INDICATED CULT NOT INDICATED; GLUCOSE,URINE NEG (NEG); KETONE, URINE 40 mg/dL (NEG); MUCUS URINE FEW /lpf (OCC); NITRITE,URINE NEG (NEG); URINE COLOR YELLOW (YELLW/STRAW)
--- NOTE | 2017-07-03 13:00 | HHI.PYPN ---
Subjective Remarks Likely still in withdrawal. Cooperative with staff. Reviewed record and spoke with patient's nurse. Review of Systems Except as stated in HPI: all other systems reviewed are Neg Objective Alert: Yes [place]: Person, Date (-year only) Mood: Anxious Affect: Other (lethargic) Memory Intact: Comment (impaired) Hallucinations: Other (unable to assess at this time) Delusions: Yes Delusion Type: Paranoid Suicidal: Ideation (denies) Homicidal: Ideation (denies) Insight/Judgment Impaired Labs Test 07/02/17 15:23 07/03/17 10:48 07/03/17 11:15 White Blood Count 5.3 TH/MM3 Red Blood Count 3.45 MIL/MM3 Hemoglobin 10.7 GM/DL Hematocrit 32.8 % Mean Corpuscular Volume 95.1 FL Mean Corpuscular Hemoglobin 30.8 PG Mean Corpuscular Hemoglobin Concent 32.4 % Red Cell Distribution Width 15.0 % Platelet Count 151 TH/MM3 Mean Platelet Volume 7.6 FL Neutrophils (%) (Auto) 59.0 % Lymphocytes (%) (Auto) 15.9 % Monocytes (%) (Auto) 24.0 % Eosinophils (%) (Auto) 0.7 % Basophils (%) (Auto) 0.4 % Neutrophils # (Auto) 3.1 TH/MM3 Lymphocytes # (Auto) 0.8 TH/MM3 Monocytes # (Auto) 1.3 TH/MM3 Eosinophils # (Auto) 0.0 TH/MM3 Basophils # (Auto) 0.0 TH/MM3 CBC Comment DIFF FINAL Differential Comment Total Bilirubin 0.7 MG/DL Direct Bilirubin 0.3 MG/DL Indirect Bilirubin 0.4 MG/DL Aspartate Amino Transf (AST/SGOT) 36 U/L Alanine Aminotransferase (ALT/SGPT) 39 U/L Alkaline Phosphatase 85 U/L Ammonia LESS THAN 10 MCMOL/L Total Protein 6.9 GM/DL Albumin 2.7 GM/DL Urine Color YELLOW Urine Turbidity CLEAR Urine pH 6.0 Urine Specific [place] 1.020 Urine Protein NEG mg/dL Urine Glucose (UA) NEG mg/dL Urine Ketones 40 mg/dL Urine Occult Blood NEG Urine Nitrite NEG Urine Bilirubin NEG Urine Urobilinogen 2.0 MG/DL Urine Leukocyte Esterase NEG Urine RBC LESS THAN 1 /hpf Urine WBC 3 /hpf Urine Mucus FEW /lpf Microscopic Urinalysis Comment CULT NOT INDICATED Vitals/IOs Vital Signs Date Time Temp Pulse Resp B/P (MAP) Pulse Ox O2 Delivery O2 Flow Rate FiO2 07/03/17 08:00 99.3 84 96/58 (71) 94 07/03/17 05:56 16 Intake and Output 07/03/17 07/03/17 07/03/17 07:59 15:59 23:59 Output Total 160 ml Balance -160 ml Assessment & Plan Problem List: (1) Unspecified psychosis ICD Codes: F29 - Unspecified psychosis not due to a substance or known physiological condition Status: Acute (2) Alcohol withdrawal ICD Codes: F10.239 - Alcohol dependence with withdrawal, unspecified Status: Acute Assessment & Plan Estimated LOS: days continue current treatment plan Justification for Cont. Inpt. Alcohol withdrawal and psychosis. Ross Moore MD Jul 03, 2017 12:59
[2017-07-03 17:57] VITALS: BP 107/63; PULSE 119; TEMP 97.6; O2SAT 96
[2017-07-04 03:44] VITALS: PULSE 79; O2SAT 96
[2017-07-04] MEDS: chlordiazePOXIDE 25 MG CAP PO SCH (05:29)
[2017-07-04 06:00] VITALS: BP 102/62; PULSE 92; RESP 16; TEMP 97.9; O2SAT 96
[2017-07-04] MEDS: THIAMINE HCL 100 MG TAB PO SCH (08:21)
[2017-07-04] MEDS: NICOTINE 21 MG/24 HR PATCH T-DERMAL SCH (08:21)
[2017-07-04] MEDS: risperiDONE 1 MG TAB PO SCH ×2 (08:21→21:25)
[2017-07-04] MEDS: FOLIC ACID 1 MG TAB PO SCH (08:21)
[2017-07-04] MEDS: MULTIVITAMIN TAB PO SCH (08:21)
--- NOTE | 2017-07-04 10:48 | HHI.PR ---
Subjective Remarks The patient was able to sit up in bed today. He said he wanted to talk on the phone with his sister who lives in [place]. He had a sitter at the bedside. Discussed with nursing. Objective Vitals Vital Signs Date Time Temp Pulse Resp B/P (MAP) Pulse Ox O2 Delivery O2 Flow Rate FiO2 07/04/17 06:00 97.9 92 16 102/62 (75) 96 07/04/17 03:44 79 96 07/03/17 17:57 97.6 119 107/63 (78) 96 I/O 07/03/17 07/03/17 07/03/17 07/04/17 07/04/17 07/04/17 07:00 15:00 23:00 07:00 15:00 23:00 Intake Total 0 ml 50 ml Output Total 160 ml Balance -160 ml 0 ml 50 ml Intake Oral 0 ml 50 ml Output Urine Total 160 ml # Voids 1 0 Result Diagram: 07/02/17 1523 07/02/17 1109 Imaging Last Impressions Chest X-Ray 07/02/17 0000 Signed Impressions: Service Date/Time: Sunday, July 02, 2017 13:28 - CONCLUSION: 1. No acute cardiopulmonary disease or significant interval change. Clayton Kolb MD Objective Remarks GENERAL: This is a thin appearing male, older than stated age, well-developed patient, in no apparent distress. SKIN: Multiple raised erythematous plaques on the bilateral lower extremities. Warm and dry. HEAD: Normocephalic. No temporal or scalp tenderness. EYES: Pupils equal round and reactive. Extraocular motions intact. No scleral icterus. No injection or drainage. ENT: Nose without bleeding. Throat without erythema. Uvula midline. Airway patent. NECK: Trachea midline. Supple. CARDIOVASCULAR: Tachycardia without murmurs, gallops, or rubs. RESPIRATORY: Coarse breath sounds. No wheezes, rales, or rhonchi. GASTROINTESTINAL: Abdomen soft, non-tender, nondistended. Bowel sounds active 4. No guarding. MUSCULOSKELETAL: Extremities without clubbing, cyanosis, or edema. NEUROLOGICAL: 3 out of 5 strength in the lower and upper extremities. Medications and IVs Current Medications Medications (Trade) Dose Ordered Sig/Anahi Route Start Time Stop Time Status Last Admin (Ativan) 1 mg Q6H PRN PO 06/28/17 19:15 8/26/17 03:40 (Ativan Inj) 1 mg Q6H PRN IM 06/28/17 19:15 (Tylenol) 650 mg Q4H PRN PO 06/28/17 19:15 (Milk Of Magnesia Liq) 30 ml DAILY PRN PO 06/28/17 19:15 (Mag-Al Plus Susp Liq) 30 ml Q6H PRN PO 06/28/17 19:15 (Habitrol 21 Mg Patch.24 Hr) 1 patch DAILY T-DERMAL 06/29/17 09:00 07/03/17 09:00 Miscellaneous Information 1 HS T-DERMAL 06/28/17 21:00 06/29/17 21:00 (Ativan) 1 mg Q4H PRN PO 06/28/17 19:15 (Ativan Inj) 1 mg Q4H PRN IV PUSH 06/28/17 19:15 06/29/17 15:46 (Ativan) 2 mg Q2H PRN PO 06/28/17 19:15 07/01/17 20:21 (Ativan Inj) 2 mg Q2H PRN IV PUSH 06/28/17 19:15 07/02/17 21:32 (Ativan Inj) 2 mg Q1H PRN IV PUSH 06/28/17 19:15 06/30/17 06:20 (Ativan Inj) 2 mg Q15M PRN IV PUSH 06/28/17 19:15 06/30/17 14:19 (Haldol Inj) 2 mg Q15M PRN IM 06/28/17 19:15 07/02/17 04:53 (Romazicon Inj) 0.2 mg Q1M PRN IV PUSH 06/28/17 19:15 (Folate) 1 mg DAILY PO 06/30/17 09:00 07/04/17 08:21 (Theragran) 1 tab DAILY PO 06/30/17 09:00 07/04/17 08:21 (risperDAL) 1 mg Q12HR PO 06/29/17 15:00 07/04/17 08:21 (Benadryl 2% Cream) 1 applic TID PRN TOPICAL 07/02/17 10:00 07/03/17 20:29 (Librium) 25 mg Q8HR PO 07/02/17 22:00 07/04/17 05:29 (Vistaril) 50 mg BID PO 07/03/17 21:00 07/04/17 08:21 Thiamine HCl 500 mg/Sodium Chloride 105 ml @ 101 mls/hr TID IV 07/04/17 10:45 07/05/17 19:03 UNV A/P Problem List: (1) Paranoid delusion ICD Code: F22 - Delusional disorders Status: Acute (2) Hyponatremia ICD Code: E87.1 - Hypo-osmolality and hyponatremia Status: Acute (3) Hypokalemia ICD Code: E87.6 - Hypokalemia Status: Acute Assessment and Plan Encephalopathy/ ETOH Labs significant for hyponatremia. Toxicology screen positive for alcohol. CT of the head unremarkable study. Ammonia level WNL. Still encephalopathic, concern for Wernicke's. - start IV thiamine to treat Wernicke's. - CIWA Protocol. Standing Librium ordered per psych. Decrease dose to 10 mg TID 07/04. - Thiamine, Folic Acid, Multivitamin - Cessation instruction. - cognitive eval with speech therapy. - PT eval. - neurology consult requested. Hyponatremia Hypovolemic hyponatremia. Sodium 118 on admission. Most likely secondary to dehydration and alcoholism. Patient was given IV fluids with sodium improvement to 134. - Continue to monitor sodium as needed. - encourage PO intake. Dehydration The pt appears dry. - S/p 1 L D5NS 07/02. Tobacco use Counseled. - Nicotine patch. Anemia/ Thrombocytopenia Likely s/t alcohol induced bone marrow suppression. Iron studies noted. - check Hemoccult. Cough The pt has difficulty eating per nursing and has had a persistent cough. Concern for aspiration. CXR unremarkable. - diet per speech. - oxygen and nebs as needed. DVT prophylaxis: SCDs. Will avoid chemoprophylaxis due to history of bleeding ulcer. Discharge Planning Per primary Bryce Kowalski DO Jul 04, 2017 10:48
[2017-07-04] MEDS: THIAMINE INJ 500 MG in SODIUM CHLORIDE 0.9% INJ 100 ML IV SCH ×3 (12:29→18:06)
[2017-07-04 18:25] VITALS: BP 112/71; PULSE 99; RESP 16; TEMP 97.8; O2SAT 98
--- NOTE | 2017-07-04 18:43 | HHI.PYPN ---
Subjective Remarks Remains intermittently confused and paranoid. Review of Systems Except as stated in HPI: all other systems reviewed are Neg Objective Alert: Yes [place]: Person, Date (-year only) Mood: Anxious Affect: Other (lethargic) Memory Intact: Comment (impaired) Hallucinations: Other (unable to assess at this time) Delusions: Yes Delusion Type: Paranoid Suicidal: Ideation (denies) Homicidal: Ideation (denies) Insight/Judgment Impaired Vitals/IOs Vital Signs Date Time Temp Pulse Resp B/P (MAP) Pulse Ox O2 Delivery O2 Flow Rate FiO2 07/04/17 18:25 97.8 99 16 112/71 (85) 98 Intake and Output 07/04/17 07/04/17 07/05/17 08:00 16:00 00:00 Intake Total 0 ml 410 ml 120 ml Balance 0 ml 410 ml 120 ml Assessment & Plan Problem List: (1) Unspecified psychosis ICD Codes: F29 - Unspecified psychosis not due to a substance or known physiological condition Status: Acute (2) Alcohol withdrawal ICD Codes: F10.239 - Alcohol dependence with withdrawal, unspecified Status: Acute Assessment & Plan Estimated LOS: days continue current treatment plan. Justification for Cont. Inpt. Ross Valle MD Jul 04, 2017 18:43
[2017-07-04] MEDS: REMOVE OLD NICOTINE PATCH T-DERMAL SCH (21:00)
[2017-07-04] MEDS: LORazepam 1 MG TAB PO PRN (23:57)
--- NOTE | 2017-07-05 05:33 | MB ---
cc: HIRO GOMES DATE OF CONSULTATION 07/04/2017 REASON FOR CONSULTATION Altered mental status. HISTORY OF PRESENT ILLNESS Mr. Wallace is a 57-year-old male who is a poor historian thus the past medical history is obtained from the medical records and RN. He has a past medical history of pancreatitis, osteoarthritis, bleeding ulcer, resented to [facility], [place] for altered mental status. At admission he was found to be delirious with hyponatremia, hypokalemia. He has history of excessive alcohol, admitted to the medical psychiatry unit. During the encounter the patient was awake, occasionally sleepy, a sitter at the bedside. He denies headache, double vision, weakness, specifically a weakness of any extremity or history of seizures. REVIEW OF SYSTEMS A 12-point review of systems is negative except for what is stated in the HPI. PAST MEDICAL HISTORY 1. Pancreatitis. 2. Psoriasis. 3. Bleeding ulcer. 4. Osteoarthritis. PAST SURGICAL HISTORY Right knee surgery. Jaw surgery. MEDICATIONS 1. Vitamin B1. 2. Folic acid. 3. Risperdal. FAMILY HISTORY Father - cancer. Mother - alive, 91 years of SOCIAL HISTORY Alcohol abuse before but will daily. Current daily smoker one per day. Denies illicit drug abuse. PHYSICAL EXAMINATION GENERAL: Awake, alert, occasionally sleepy, not in acute distress. HEENT: Atraumatic, normocephalic. Intact hearing. Intact vision. NECK: supple. No signs meningeal irritation. CARDIOVASCULAR: Regular rate and rhythm. RESPIRATORY: Clear to auscultation. No wheezes. GASTROINTESTINAL: Soft abdomen. No organomegaly. MUSCULOSKELETAL: No clubbing, no cyanosis, no edema. NEUROLOGICAL: Awake, alert, occasionally sleepy. He is arousable. Limited expressions in the face. No nystagmus. No diplopia. Pupils 3 mm, bilaterally equal. Oriented to time, person and place ([facility], 2016). Questionable left ptosis. The patient has attains a catatonic posture with rigidity off all extremities: Mild flapping tremor bilateral hands, asterixis. Unable to accurately assess motor and sensory function due to lack of cooperation. [id number]-sc-qduv is slow but no dysdiadochokinesia. Gait as per the sitter, he states that he walks with a wide-based gait when he was walked with physical therapy this morning. LABORATORY DATA WBC 5.3, hemoglobin 10.7, MCV 95.1, platelet count 151. Sodium 136, potassium 3.8, BUN 9, creatinine 0.6. Iron 24, total bilirubin 0.7, normal AST, ALT, alkaline phosphatase. Low albumin at 2.7. Vitamin B12 774, folate 15.1. DIAGNOSTIC IMPRESSION 1. 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 2. Catatonic posture. 3. Asterixis. 4. Electrolyte imbalance with hyponatremia and hypokalemia. PLAN 1. Neuro checks q. 4 hours. 2. CIWA protocol. 3. Electrolyte imbalance; slow correction of the sodium. 4. Obtain vitamin B1 level. 5. EEG. 6. DVT prophylaxis. 7. SCDs. 8. Fall precautions. Thank you for the opportunity to participate in the care of your patient. MD MACKENZIE Blackwood/AUGUSTUS /11:06 PM /5:10 AM MTDRudi
[2017-07-05 05:53] VITALS: BP 80/60; PULSE 73; RESP 18; TEMP 98.5; O2SAT 98
[2017-07-05] MEDS ORDERED: SODIUM CHLOR 0.9% 1000 ML INJ 1,000 ML IV ONE (07:00)
[2017-07-05 08:32] VITALS: BP 119/69; PULSE 87; RESP 18; O2SAT 96
[2017-07-05] MEDS: LORazepam 2 MG/ML VIAL IV PUSH PRN (08:36)
[2017-07-05] MEDS: THIAMINE INJ 500 MG in SODIUM CHLOR 0.9% 250 ML INJ 250 ML IV SCH ×2 (08:36→16:50)
[2017-07-05] MEDS: NICOTINE 21 MG/24 HR PATCH T-DERMAL SCH (09:00)
[2017-07-05] MEDS: MULTIVITAMIN TAB PO SCH (09:00)
[2017-07-05] MEDS: FOLIC ACID 1 MG TAB PO SCH (09:00)
[2017-07-05] MEDS: risperiDONE 1 MG TAB PO SCH ×2 (09:00→21:00)
--- NOTE | 2017-07-05 09:13 | HHI.PYPN ---
Subjective Remarks Patient seen for follow up; chart reviewed. After discussion with nursing staff , patient more alert but continues to be confused at times. Patient found sitting on hospital bed with a sitter at bedside. Patient states he is feeling "alright" reportedly has been feeling better yesterday and spoken with family was unable to recall conversations. Patient status visited by several family members but unclear whether that is accurate. Patient at this time is oriented to person and date only not to place or situation. Patient cannot recall events prior to coming to the hospital, still noted to be slightly lethargic. Patient reports feeling "good", denies any SI, HI, or perceptual disturbances. But unclear whether he continues to have paranoid delusions as patient had difficulty as he still is noted to be slightly disorganized. Review of Systems Except as stated in HPI: all other systems reviewed are Neg Objective Alert: Yes [place]: Person, Date (-year only) Mood: Other ("good") Affect: Other (lethargic but more reactive today) Memory Intact: Comment (impaired) Hallucinations: Other (denies at this time) Delusions: Yes Delusion Type: Paranoid Suicidal: Ideation (denies) Homicidal: Ideation (denies) Insight/Judgment Poor insight, impulse control and judgment Labs Test 07/05/17 08:16 Vitals/IOs Vital Signs Date Time Temp Pulse Resp B/P (MAP) Pulse Ox O2 Delivery O2 Flow Rate FiO2 07/05/17 08:32 87 18 119/69 (86) 96 07/05/17 05:53 98.5 Intake and Output 07/05/17 07/05/17 07/06/17 08:00 16:00 00:00 Intake Total 480 ml Output Total 100 ml Balance 380 ml Assessment & Plan Problem List: (1) Unspecified psychosis ICD Codes: F29 - Unspecified psychosis not due to a substance or known physiological condition Status: Acute (2) Alcohol withdrawal ICD Codes: F10.239 - Alcohol dependence with withdrawal, unspecified Status: Acute Assessment & Plan Patient this time noted to be slightly more alert requiring less when necessary Ativan for withdrawal although his CIWA scores have been lower than before but continues to be at around 8. Patient continues to be on a Librium taper at 10 mg by mouth 3 times a day. Patient now requiring less Ativan when necessary. We'll continue current treatment and patient to continue recommendations as per primary medical team. Neurology consult appreciated. Patient to remain on one- to-one observation for safety. Justification for Cont. Inpt. Patient at risk for decompensation and fat lower level of care Luis Felipe Thrasher MD Jul 05, 2017 09:12
--- NOTE | 2017-07-05 10:13 | RADRPT ---
EXAM DATE/TIME: 07/05/2017 09:12 [place] COMPARISON: No previous studies available for comparison. INDICATIONS : Altered mental status. Lethargy with weakness. MEDICAL HISTORY : Osteoarthritis. Pancreatitis. delerium SURGICAL HISTORY : Jaw surgery, bo in femur that was removed ENCOUNTER: Subsequent ACUITY: 1 week PAIN SCORE: Nonresponsive. LOCATION: cranial TECHNIQUE: Multiplanar, multisequence MRI of the brain was performed without contrast. FINDINGS: MRI of the brain is performed in sagittal, axial and coronal planes. The craniocervical junction and midline structures are unremarkable. Diffusion weighted images demonstrate no abnormality. There is n o evidence of acute cortical infarction, acute hemorrhage, mass effect or midline shift is seen. Ther e is periventricular hyperintensity on the T2 weighted images consistent with small vessel vascular d isease significantly more than expected in a patient of this age.Posterior fossa structures are unrem arkable. CONCLUSION: 1. No evidence of acute intracranial pathology. Chronic ischemic changes as above. Krystian Sanchez MD on July 05, 2017 at 9:54 Board Certified Radiologist. This report was verified electronically.
[2017-07-05] MEDS: DEXT 5%-NACL 0.9% 1000 ML INJ 1,000 ML IV SCH (11:30)
--- NOTE | 2017-07-05 11:34 | HHI.PR ---
Subjective Remarks The patient was resting comfortably in bed. The sitter was at the bedside. The patient seemed to be unaware that he was in [place]. He had no acute complaints. Discussed with nursing. Objective Vitals Vital Signs Date Time Temp Pulse Resp B/P (MAP) Pulse Ox O2 Delivery O2 Flow Rate FiO2 07/05/17 08:32 87 18 119/69 (86) 96 07/05/17 05:53 98.5 73 18 80/60 (67) 98 07/04/17 18:25 97.8 99 16 112/71 (85) 98 I/O 07/04/17 07/04/17 07/04/17 07/05/17 07/05/17 07/05/17 07:00 15:00 23:00 07:00 15:00 23:00 Intake Total 0 ml 410 ml 927 ml 720 ml Output Total 100 ml Balance 0 ml 410 ml 927 ml 620 ml Intake Oral 0 ml 410 ml 480 ml 480 ml Oral Supplement 240 ml IV Total 447 ml 0 ml Output Urine Total 100 ml # Voids 0 1 2 Result Diagram: 07/02/17 1523 07/02/17 1109 Imaging Last Impressions Brain MRI 07/05/17 0000 Signed Impressions: Service Date/Time: Wednesday, July 05, 2017 09:12 - CONCLUSION: 1. No evidence of acute intracranial pathology. Chronic ischemic changes as above. Krystian Sanchez MD Chest X-Ray 07/02/17 0000 Signed Impressions: Service Date/Time: Sunday, July 02, 2017 13:28 - CONCLUSION: 1. No acute cardiopulmonary disease or significant interval change. Clayton Kolb MD Objective Remarks GENERAL: This is a thin appearing male, older than stated age, well-developed patient, in no apparent distress. SKIN: Multiple raised erythematous plaques on the bilateral lower extremities. Warm and dry. HEAD: Normocephalic. No temporal or scalp tenderness. EYES: Pupils equal round and reactive. Extraocular motions intact. No scleral icterus. No injection or drainage. ENT: Nose without bleeding. Throat without erythema. Uvula midline. Airway patent. NECK: Trachea midline. Supple. CARDIOVASCULAR: Tachycardia without murmurs, gallops, or rubs. RESPIRATORY: Coarse breath sounds. No wheezes, rales, or rhonchi. GASTROINTESTINAL: Abdomen soft, non-tender, nondistended. Bowel sounds active 4. No guarding. MUSCULOSKELETAL: Extremities without clubbing, cyanosis, or edema. NEUROLOGICAL: 3 out of 5 strength in the lower and upper extremities. PSYCH: Flattened affect. Medications and IVs Current Medications Medications (Trade) Dose Ordered Sig/Anahi Route Start Time Stop Time Status Last Admin (Ativan) 1 mg Q6H PRN PO 06/28/17 19:15 07/04/17 23:57 (Ativan Inj) 1 mg Q6H PRN IM 06/28/17 19:15 (Tylenol) 650 mg Q4H PRN PO 06/28/17 19:15 (Milk Of Magnesia Liq) 30 ml DAILY PRN PO 06/28/17 19:15 (Mag-Al Plus Susp Liq) 30 ml Q6H PRN PO 06/28/17 19:15 (Habitrol 21 Mg Patch.24 Hr) 1 patch DAILY T-DERMAL 06/29/17 09:00 07/03/17 09:00 Miscellaneous Information 1 HS T-DERMAL 06/28/17 21:00 06/29/17 21:00 (Ativan) 1 mg Q4H PRN PO 06/28/17 19:15 07/05/17 03:56 (Ativan Inj) 1 mg Q4H PRN IV PUSH 06/28/17 19:15 07/05/17 08:36 (Ativan) 2 mg Q2H PRN PO 06/28/17 19:15 07/01/17 20:21 (Ativan Inj) 2 mg Q2H PRN IV PUSH 06/28/17 19:15 07/02/17 21:32 (Ativan Inj) 2 mg Q1H PRN IV PUSH 06/28/17 19:15 06/30/17 06:20 (Ativan Inj) 2 mg Q15M PRN IV PUSH 06/28/17 19:15 06/30/17 14:19 (Haldol Inj) 2 mg Q15M PRN IM 06/28/17 19:15 07/02/17 04:53 (Romazicon Inj) 0.2 mg Q1M PRN IV PUSH 06/28/17 19:15 (Folate) 1 mg DAILY PO 06/30/17 09:00 07/05/17 09:00 (Theragran) 1 tab DAILY PO 06/30/17 09:00 07/05/17 09:00 (risperDAL) 1 mg Q12HR PO 06/29/17 15:00 07/05/17 09:00 (Benadryl 2% Cream) 1 applic TID PRN TOPICAL 07/02/17 10:00 07/03/17 20:29 (Vistaril) 50 mg BID PO 07/03/17 21:00 07/05/17 09:00 (Librium) 10 mg TID PO 07/04/17 13:00 07/05/17 09:00 Thiamine HCl 500 mg/Sodium Chloride 255 ml @ 255 mls/hr Q8H IV 07/05/17 09:00 07/06/17 01:59 07/05/17 08:36 Dextrose/Sodium Chloride 1,000 ml @ 75 mls/hr [id number] IV 07/05/17 11:30 07/06/17 14:09 UNV A/P Problem List: (1) Paranoid delusion ICD Code: F22 - Delusional disorders Status: Acute (2) Hyponatremia ICD Code: E87.1 - Hypo-osmolality and hyponatremia Status: Acute (3) Hypokalemia ICD Code: E87.6 - Hypokalemia Status: Acute Assessment and Plan Encephalopathy/ ETOH Labs significant for hyponatremia. Toxicology screen positive for alcohol. CT of the head unremarkable study. Ammonia level WNL. Still encephalopathic, concern for Wernicke's. Neurology consult appreciated. Brain MRI unremarkable. - started IV thiamine 07/04 to treat Wernicke's. - [place] Protocol. Standing Librium ordered per psych. Decreased dose to 10 mg TID 07/04. Will wean to BID 07/05. - Thiamine, Folic Acid, Multivitamin - Cessation instruction. - cognitive eval with speech therapy. - PT eval. - neurology following. Hyponatremia Hypovolemic hyponatremia. Sodium 118 on admission. Most likely secondary to dehydration and alcoholism. Patient was given IV fluids with sodium improvement to 134. - Continue to monitor sodium as needed. - encourage PO intake. Dehydration/ failure to thrive The pt appears dry and has not been eating. - D5NS started. Check glucose BID. - add Ensure with meals. Tobacco use Counseled. - Nicotine patch. Anemia/ Thrombocytopenia Likely s/t alcohol induced bone marrow suppression. Iron studies noted. - check Hemoccult. Cough The pt has difficulty eating per nursing and has had a persistent cough. Concern for aspiration. CXR unremarkable. - diet per speech. - oxygen and nebs as needed. DVT prophylaxis: SCDs. Will avoid chemoprophylaxis due to history of bleeding ulcer. Discharge Planning Per primary Bryce Kowalski DO Jul 05, 2017 11:34
[2017-07-05] MEDS: HALOPERIDOL LACTATE 5 MG/ML AMP IM PRN (13:06)
--- NOTE | 2017-07-05 17:01 | MG ---
cc: FINN WORRELL M.D. Lab No: Date: 07/05/2017 Age: Sex: M Race: DATE OF 1960, 57 years old EEG NUMBER [id number] Cordon. ROOM 401B With photic stimulation. Awake study. [place] act for change in mental status, found delirious with hyponatremia and hypokalemia with a known history of pancreatitis. Alcohol use, tobacco use. MEDICATIONS On: 1. Thiamine. 2. Vistaril. 3. Benadryl. 4. Ativan. 5. Risperidone. DESCRIPTION OF RECORD Some faster frequency waves seen, beta waves may be due to medicine effect. There is a lot of artifact trying to get the patient to relax per rd lab technician's notes. EKG is all artifactual or most of the artifact is in the frontal eye [place]. A lot of head movement. Cannot appreciate any significant findings to suggest any seizures. Photic stimulation with a posterior driving response. IMPRESSION Abnormal EEG due to what looks like beta frequency may be due to medicine effect but no gross epileptiform features were seen. Clinical correlation. MD DEBRA Agarwal/BRIA /3:29 PM /4:48 PM
[2017-07-05 18:26] VITALS: BP 102/69; PULSE 83; RESP 22; TEMP 98.1; O2SAT 98
[2017-07-05] MEDS: REMOVE OLD NICOTINE PATCH T-DERMAL SCH (21:00)
[2017-07-06] MEDS: THIAMINE INJ 500 MG in SODIUM CHLOR 0.9% 250 ML INJ 250 ML IV SCH (01:44)
[2017-07-06] MEDS: DEXT 5%-NACL 0.9% 1000 ML INJ 1,000 ML IV SCH (01:45)
[2017-07-06 06:31] VITALS: BP 120/75; PULSE 88; RESP 20; TEMP 98; O2SAT 96
--- NOTE | 2017-07-06 07:53 | HHI.PYPN ---
Subjective Remarks Patient seen for follow-up, chart reviewed. After discussing with nursing staff patient continues to be on nothing by mouth until speech therapy completes swallow eval. Patient continues to be on IV fluids slept last night but did get Ativan IM once for agitation. Patient found lying in hospital bed alert and oriented 3 today. Patient states that he had rested well last night and his worries in hospital and that he wants to see his mother in [employer] patient continues to be unclear about the events prior to his admission. Patient reports feeling "better" continues to have some slurred speech and some disorganization at times. Patient agreed to cooperate with evaluation for swallow today. Review of Systems Except as stated in HPI: all other systems reviewed are Neg Objective Alert: Yes [place]: Person, Date (-year only) Mood: Other ("better") Affect: Other (slightly lethargic but more reactive today) Memory Intact: Comment (impaired) Hallucinations: Other (denies at this time) Delusions: Yes Delusion Type: Paranoid Suicidal: Ideation (denies) Homicidal: Ideation (denies) Insight/Judgment Poor insight, impulse control and judgment Labs Test 07/05/17 08:16 Vitals/IOs Vital Signs Date Time Temp Pulse Resp B/P (MAP) Pulse Ox O2 Delivery O2 Flow Rate FiO2 07/06/17 06:31 98.0 88 20 120/75 (90) 96 Intake and Output 07/06/17 07/06/17 07/07/17 08:00 16:00 00:00 Intake Total 775 ml Balance 775 ml Assessment & Plan Problem List: (1) Unspecified psychosis ICD Codes: F29 - Unspecified psychosis not due to a substance or known physiological condition Status: Acute (2) Alcohol withdrawal ICD Codes: F10.239 - Alcohol dependence with withdrawal, unspecified Status: Acute Assessment & Plan Patient at this time continues to be on Librium taper and now down to 10 mg twice a day although patient continues to deal one-to-one times required redirection which last evening received Ativan 1 mg. Patient CIWA scores now below 8, currently more alert and oriented but continues to be slightly lethargic. Patient continues to be slightly disorganized but he will not engage in interview. Continue current treatment discharge planning in progress Justification for Cont. Inpt. At risk for further decompensation if at lower level of care. Luis Felipe Thrasher MD Jul 06, 2017 07:52
--- NOTE | 2017-07-06 08:36 | HHI.PR ---
Review/Management Diagnosis 1. 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 2. Catatonic posture. 3. Asterixis. 4. Electrolyte imbalance with hyponatremia and hypokalemia. Plan 1. Neuro checks q. 4 hours. 2. CIWA protocol. 3. Electrolyte imbalance; slow correction of the sodium. 4. DVT prophylaxis. 5. SCDs. 6. Fall precautions. 7. No need for further neurologic work up at this time 8. Please call for questions Diagnosis/Plan: Subjective Subjective Comments No acute events reported overnight MRI brain is unremarkable for an acute intracranial abnormality EEG is unremarkable Active Medications Current Medications Medications (Trade) Dose Ordered Sig/Anahi Route Start Time Stop Time Status Last Admin (Ativan) 1 mg Q6H PRN PO 06/28/17 19:15 07/04/17 23:57 (Ativan Inj) 1 mg Q6H PRN IM 06/28/17 19:15 07/06/17 02:11 (Tylenol) 650 mg Q4H PRN PO 06/28/17 19:15 (Milk Of Magnesia Liq) 30 ml DAILY PRN PO 06/28/17 19:15 (Mag-Al Plus Susp Liq) 30 ml Q6H PRN PO 06/28/17 19:15 (Habitrol 21 Mg Patch.24 Hr) 1 patch DAILY T-DERMAL 06/29/17 09:00 07/03/17 09:00 Miscellaneous Information 1 HS T-DERMAL 06/28/17 21:00 06/29/17 21:00 (Ativan) 1 mg Q4H PRN PO 06/28/17 19:15 07/05/17 03:56 (Ativan Inj) 1 mg Q4H PRN IV PUSH 06/28/17 19:15 07/05/17 08:36 (Ativan) 2 mg Q2H PRN PO 06/28/17 19:15 07/01/17 20:21 (Ativan Inj) 2 mg Q2H PRN IV PUSH 06/28/17 19:15 07/02/17 21:32 (Ativan Inj) 2 mg Q1H PRN IV PUSH 06/28/17 19:15 06/30/17 06:20 (Ativan Inj) 2 mg Q15M PRN IV PUSH 06/28/17 19:15 06/30/17 14:19 (Haldol Inj) 2 mg Q15M PRN IM 06/28/17 19:15 07/05/17 13:06 (Romazicon Inj) 0.2 mg Q1M PRN IV PUSH 06/28/17 19:15 (Folate) 1 mg DAILY PO 06/30/17 09:00 07/05/17 09:00 (Theragran) 1 tab DAILY PO 06/30/17 09:00 07/05/17 09:00 (risperDAL) 1 mg Q12HR PO 06/29/17 15:00 07/05/17 09:00 (Benadryl 2% Cream) 1 applic TID PRN TOPICAL 07/02/17 10:00 07/03/17 20:29 (Vistaril) 50 mg BID PO 07/03/17 21:00 07/05/17 09:00 Dextrose/Sodium Chloride 1,000 ml @ 75 mls/hr [id number] IV 07/05/17 11:30 07/06/17 14:09 07/06/17 01:45 (Librium) 10 mg BID PO 07/05/17 21:00 Allergies Allergies Coded Allergies No Known Allergies (Verified06/27/17) Review of Systems All other ROS: ROS reviewed as documented in chart Exam I&O / VS Vital Signs Date Time Temp Pulse Resp B/P (MAP) Pulse Ox O2 Delivery O2 Flow Rate FiO2 07/06/17 06:31 98.0 88 20 120/75 (90) 96 07/05/17 18:26 98.1 83 22 102/69 (80) 98 Exam Comments GENERAL: Sleeping, no in apparent . HEENT: Atraumatic, normocephalic. Intact hearing. Intact vision. NECK: supple. No signs meningeal irritation. CARDIOVASCULAR: Regular rate and rhythm. RESPIRATORY: Clear to auscultation. No wheezes. GASTROINTESTINAL: Soft abdomen. No organomegaly. MUSCULOSKELETAL: No clubbing, no cyanosis, no edema. NEUROLOGICAL: unchanged Objective Radiology Results Last 72 hours Impressions Modified Barium Swallow 07/06/17 0000 Signed Impressions: Service Date/Time: Thursday, July 06, 2017 00:00 - CONCLUSION: Please see speech pathology report Chandler Chavez MD Brain MRI 07/05/17 0000 Signed Impressions: Service Date/Time: Wednesday, July 05, 2017 09:12 - CONCLUSION: 1. No evidence of acute intracranial pathology. Chronic ischemic changes as above. Krystian Sanchez MD Ossi,Pau Groves MD Jul 06, 2017 08:36
[2017-07-06] MEDS: MULTIVITAMIN TAB PO SCH (09:00)
[2017-07-06] MEDS: NICOTINE 21 MG/24 HR PATCH T-DERMAL SCH (09:00)
[2017-07-06] MEDS: risperiDONE 1 MG TAB PO SCH ×2 (09:00→21:05)
[2017-07-06] MEDS: FOLIC ACID 1 MG TAB PO SCH (09:00)
[2017-07-06] MEDS: THIAMINE INJ 250 MG in SODIUM CHLORIDE 0.9% INJ 100 ML IV SCH (09:15)
--- NOTE | 2017-07-06 10:56 | RADRPT ---
EXAM DATE/TIME: 07/06/2017 00:00 [facility] COMPARISON: No previous studies available for comparison. INDICATIONS : Dysphagia. FLUORO TIME: 4.0 minutes IMAGE COUNT: 0 CONTRAST: Dose as prescribed by speech pathologist. MEDICAL HISTORY : Pancreatitis. SURGICAL HISTORY : jaw surgery. ENCOUNTER: Initial ACUITY: 1 week PAIN SCORE: 0/10 LOCATION: Bilateral neck FINDINGS: A modified barium swallow was performed with speech pathology. Patient was given a variety of liquids to swallow. Single episode suggesting minimal thin liquid penetration. Otherwise unremarkable For a full detailed report, see report by the speech pathologist. CONCLUSION: Please see speech pathology report Chandler Chavez MD on July 06, 2017 at 10:54 Board Certified Radiologist. This report was verified electronically.
--- NOTE | 2017-07-06 11:01 | HHI.PR ---
Subjective Remarks The patient was resting comfortably in bed. Nursing was concerned that the patient was choking while eating. The patient said that he was hungry. Sitter at the bedside. Objective Vitals Vital Signs Date Time Temp Pulse Resp B/P (MAP) Pulse Ox O2 Delivery O2 Flow Rate FiO2 07/06/17 06:31 98.0 88 20 120/75 (90) 96 07/05/17 18:26 98.1 83 22 102/69 (80) 98 I/O 07/05/17 07/05/17 07/05/17 07/06/17 07/06/17 07/06/17 07:00 15:00 23:00 07:00 15:00 23:00 Intake Total 720 ml 1796 ml 1075 ml Output Total 100 ml Balance 620 ml 1796 ml 1075 ml Intake Oral 480 ml Oral Supplement 240 ml IV Total 0 ml 1796 ml 1075 ml Output Urine Total 100 ml # Voids 2 1 2 3 Result Diagram: 07/02/17 1523 07/02/17 1109 Imaging Last Impressions Brain MRI 07/05/17 0000 Signed Impressions: Service Date/Time: Wednesday, July 05, 2017 09:12 - CONCLUSION: 1. No evidence of acute intracranial pathology. Chronic ischemic changes as above. Krystian Sanchez MD Chest X-Ray 07/02/17 0000 Signed Impressions: Service Date/Time: Sunday, July 02, 2017 13:28 - CONCLUSION: 1. No acute cardiopulmonary disease or significant interval change. Clayton Kolb MD Objective Remarks GENERAL: This is a thin appearing male, older than stated age, well-developed patient, in no apparent distress. SKIN: Multiple raised erythematous plaques on the bilateral lower extremities. Warm and dry. HEAD: Normocephalic. No temporal or scalp tenderness. EYES: Pupils equal round and reactive. Extraocular motions intact. No scleral icterus. No injection or drainage. ENT: Nose without bleeding. Throat without erythema. Uvula midline. Airway patent. NECK: Trachea midline. Supple. CARDIOVASCULAR: Tachycardia without murmurs, gallops, or rubs. RESPIRATORY: Coarse breath sounds. No wheezes, rales, or rhonchi. GASTROINTESTINAL: Abdomen soft, non-tender, nondistended. Bowel sounds active 4. No guarding. MUSCULOSKELETAL: Extremities without clubbing, cyanosis, or edema. NEUROLOGICAL: 3 out of 5 strength in the lower and upper extremities. PSYCH: Flattened affect. Medications and IVs Current Medications Medications (Trade) Dose Ordered Sig/Anahi Route Start Time Stop Time Status Last Admin (Ativan) 1 mg Q6H PRN PO 06/28/17 19:15 07/04/17 23:57 (Ativan Inj) 1 mg Q6H PRN IM 06/28/17 19:15 07/06/17 02:11 (Tylenol) 650 mg Q4H PRN PO 06/28/17 19:15 (Milk Of Magnesia Liq) 30 ml DAILY PRN PO 06/28/17 19:15 (Mag-Al Plus Susp Liq) 30 ml Q6H PRN PO 06/28/17 19:15 (Habitrol 21 Mg Patch.24 Hr) 1 patch DAILY T-DERMAL 06/29/17 09:00 07/03/17 09:00 Miscellaneous Information 1 HS T-DERMAL 06/28/17 21:00 06/29/17 21:00 (Ativan) 1 mg Q4H PRN PO 06/28/17 19:15 07/05/17 03:56 (Ativan Inj) 1 mg Q4H PRN IV PUSH 06/28/17 19:15 07/05/17 08:36 (Ativan) 2 mg Q2H PRN PO 06/28/17 19:15 07/01/17 20:21 (Ativan Inj) 2 mg Q2H PRN IV PUSH 06/28/17 19:15 07/02/17 21:32 (Ativan Inj) 2 mg Q1H PRN IV PUSH 06/28/17 19:15 06/30/17 06:20 (Ativan Inj) 2 mg Q15M PRN IV PUSH 06/28/17 19:15 06/30/17 14:19 (Haldol Inj) 2 mg Q15M PRN IM 06/28/17 19:15 07/05/17 13:06 (Romazicon Inj) 0.2 mg Q1M PRN IV PUSH 06/28/17 19:15 (Folate) 1 mg DAILY PO 06/30/17 09:00 07/05/17 09:00 (Theragran) 1 tab DAILY PO 06/30/17 09:00 07/05/17 09:00 (risperDAL) 1 mg Q12HR PO 06/29/17 15:00 07/05/17 09:00 (Benadryl 2% Cream) 1 applic TID PRN TOPICAL 07/02/17 10:00 07/03/17 20:29 (Vistaril) 50 mg BID PO 07/03/17 21:00 07/05/17 09:00 Dextrose/Sodium Chloride 1,000 ml @ 75 mls/hr [id number] IV 07/05/17 11:30 07/06/17 14:09 07/06/17 01:45 (Librium) 10 mg BID PO 07/05/17 21:00 Thiamine HCl 250 mg/Sodium Chloride 102.5 ml @ 101 mls/hr DAILY IV 07/06/17 09:15 07/10/17 10:01 A/P Problem List: (1) Paranoid delusion ICD Code: F22 - Delusional disorders Status: Acute (2) Hyponatremia ICD Code: E87.1 - Hypo-osmolality and hyponatremia Status: Acute (3) Hypokalemia ICD Code: E87.6 - Hypokalemia Status: Acute Assessment and Plan Encephalopathy/ ETOH Labs significant for hyponatremia. Toxicology screen positive for alcohol. CT of the head unremarkable study. Ammonia level WNL. Still encephalopathic, concern for Wernicke's. Neurology consult appreciated. Brain MRI unremarkable. - started IV thiamine 07/04 to treat Wernicke's. - [facility] Protocol. Standing Librium ordered per psych. Decreased dose to 10 mg TID 07/04. Will wean to daily 07/06. - Thiamine, Folic Acid, Multivitamin - Cessation instruction. - cognitive eval with speech therapy. - PT eval. - neurology following. Hyponatremia Hypovolemic hyponatremia. Sodium 118 on admission. Most likely secondary to dehydration and alcoholism. Patient was given IV fluids with sodium improvement to 134. - Continue to monitor sodium as needed. - encourage PO intake. Dehydration/ failure to thrive The pt appears dry and has not been eating. Nursing concerned that he is aspirating. - D5NS started. Check glucose BID. - add Ensure with meals. - Modified Barium study pending. Tobacco use Counseled. - Nicotine patch. Anemia/ Thrombocytopenia Likely s/t alcohol induced bone marrow suppression. Iron studies noted. - check Hemoccult. Cough The pt has difficulty eating per nursing and has had a persistent cough. Concern for aspiration. CXR unremarkable. - diet per speech. - oxygen and nebs as needed. DVT prophylaxis: SCDs. Will avoid chemoprophylaxis due to history of bleeding ulcer. Discharge Planning Per primary Bryce Kowalski DO Jul 06, 2017 11:01
[2017-07-06] MEDS: REMOVE OLD NICOTINE PATCH T-DERMAL SCH (11:13)
[2017-07-06 14:31] VITALS: BP 92/58; PULSE 97; RESP 18; TEMP 97.6; O2SAT 98
[2017-07-06 18:00] VITALS: BP 98/63; PULSE 95; RESP 18; TEMP 98.4; O2SAT 92
[2017-07-06] MEDS: LORazepam 1 MG TAB PO PRN (18:44)
[2017-07-07] MEDS: LORazepam 1 MG TAB PO PRN ×2 (01:32→20:45)
[2017-07-07 05:23] VITALS: BP 102/65; PULSE 83; RESP 16; TEMP 98.4; O2SAT 98
[2017-07-07] MEDS: MULTIVITAMIN TAB PO SCH (09:00)
[2017-07-07] MEDS: THIAMINE INJ 250 MG in SODIUM CHLORIDE 0.9% INJ 100 ML IV SCH (09:00)
[2017-07-07] MEDS: risperiDONE 1 MG TAB PO SCH ×2 (09:00→20:31)
[2017-07-07] MEDS: NICOTINE 21 MG/24 HR PATCH T-DERMAL SCH (09:00)
[2017-07-07] MEDS: FOLIC ACID 1 MG TAB PO SCH (09:00)
[2017-07-07] MEDS: REMOVE OLD NICOTINE PATCH T-DERMAL SCH (09:54)
--- NOTE | 2017-07-07 12:37 | HHI.PR ---
Subjective Remarks as per RN patient more awake, follows commands patient denies cp/sob bp on the lower side yesterday Objective Vitals Vital Signs Date Time Temp Pulse Resp B/P (MAP) Pulse Ox O2 Delivery O2 Flow Rate FiO2 07/07/17 05:23 98.4 83 16 102/65 (77) 98 07/06/17 18:00 98.4 95 18 98/63 (75) 92 07/06/17 14:31 97.6 97 18 92/58 (69) 98 I/O 07/06/17 07/06/17 07/06/17 07/07/17 07/07/17 07/07/17 07:00 15:00 23:00 07:00 15:00 23:00 Intake Total 1075 ml 1115 ml 320 ml 360 ml Balance 1075 ml 1115 ml 320 ml 360 ml Intake Oral 665 ml 320 ml 360 ml IV Total 1075 ml 450 ml # Voids 3 2 1 Imaging Last Impressions Modified Barium Swallow 07/06/17 0000 Signed Impressions: Service Date/Time: Thursday, July 06, 2017 00:00 - CONCLUSION: Please see speech pathology report Chandler Chavez MD Brain MRI 07/05/17 0000 Signed Impressions: Service Date/Time: Wednesday, July 05, 2017 09:12 - CONCLUSION: 1. No evidence of acute intracranial pathology. Chronic ischemic changes as above. Krystian Sanchez MD Chest X-Ray 07/02/17 0000 Signed Impressions: Service Date/Time: Sunday, July 02, 2017 13:28 - CONCLUSION: 1. No acute cardiopulmonary disease or significant interval change. Clayton Kolb MD Objective Remarks GENERAL: This is a thin appearing male, older than stated age, well-developed patient, in no apparent distress. SKIN: Multiple raised erythematous plaques on the bilateral lower extremities. Warm and dry. HEAD: Normocephalic. No temporal or scalp tenderness. EYES: Pupils equal round and reactive. Extraocular motions intact. No scleral icterus. No injection or drainage. ENT: Nose without bleeding. Throat without erythema. Uvula midline. Airway patent. NECK: Trachea midline. Supple. CARDIOVASCULAR: Tachycardia without murmurs, gallops, or rubs. RESPIRATORY: Coarse breath sounds. No wheezes, rales, or rhonchi. GASTROINTESTINAL: Abdomen soft, non-tender, nondistended. Bowel sounds active 4. No guarding. MUSCULOSKELETAL: Extremities without clubbing, cyanosis, or edema. NEUROLOGICAL: 3 out of 5 strength in the lower and upper extremities. PSYCH: Flattened affect. Medications and IVs Current Medications Medications (Trade) Dose Ordered Sig/Anahi Route Start Time Stop Time Status Last Admin (Ativan) 1 mg Q6H PRN PO 06/28/17 19:15 07/07/17 01:32 (Ativan Inj) 1 mg Q6H PRN IM 06/28/17 19:15 07/06/17 02:11 (Tylenol) 650 mg Q4H PRN PO 06/28/17 19:15 (Milk Of Magnesia Liq) 30 ml DAILY PRN PO 06/28/17 19:15 (Mag-Al Plus Susp Liq) 30 ml Q6H PRN PO 06/28/17 19:15 (Habitrol 21 Mg Patch.24 Hr) 1 patch DAILY T-DERMAL 06/29/17 09:00 07/07/17 09:00 Miscellaneous Information 1 HS T-DERMAL 06/28/17 21:00 06/29/17 21:00 (Ativan) 1 mg Q4H PRN PO 06/28/17 19:15 07/05/17 03:56 (Ativan Inj) 1 mg Q4H PRN IV PUSH 06/28/17 19:15 07/05/17 08:36 (Ativan) 2 mg Q2H PRN PO 06/28/17 19:15 07/01/17 20:21 (Ativan Inj) 2 mg Q2H PRN IV PUSH 06/28/17 19:15 07/02/17 21:32 (Ativan Inj) 2 mg Q1H PRN IV PUSH 06/28/17 19:15 06/30/17 06:20 (Ativan Inj) 2 mg Q15M PRN IV PUSH 06/28/17 19:15 06/30/17 14:19 (Haldol Inj) 2 mg Q15M PRN IM 06/28/17 19:15 07/05/17 13:06 (Romazicon Inj) 0.2 mg Q1M PRN IV PUSH 06/28/17 19:15 (Folate) 1 mg DAILY PO 06/30/17 09:00 07/07/17 09:00 (Theragran) 1 tab DAILY PO 06/30/17 09:00 07/07/17 09:00 (risperDAL) 1 mg Q12HR PO 06/29/17 15:00 07/07/17 09:00 (Benadryl 2% Cream) 1 applic TID PRN TOPICAL 07/02/17 10:00 07/03/17 20:29 (Vistaril) 50 mg BID PO 07/03/17 21:00 07/07/17 09:00 (Librium) 10 mg DAILY PO 07/07/17 09:00 07/09/17 09:01 07/07/17 09:00 (Vitamin B1) 100 mg DAILY PO 07/08/17 09:00 Urinary Catheter: No Vascular Central Line Catheter: No A/P Problem List: (1) Encephalopathy acute ICD Code: G93.40 - Encephalopathy, unspecified Status: Resolved Plan: Likely a combination of metabolic and toxic encephalopathy. On admission patient with hyponatremia and toxicology screen positive for alcohol. CT of the head negative. Brain MRI unremarkable Patient started on IV thiamine on July 04 2 treat wernicke's encephalopathy. Patient also started on CIWA protocol and standing Librium order per psychiatry. Librium has been tapered to off. Patient had a cognitive eval and speech therapy. Initially made nothing by mouth. Neurology consulted on following. Description therapy evaluation deemed that the patient will need rehabilitation and I will walker for ambulation once ready to discharge. (2) Paranoid delusion ICD Code: F22 - Delusional disorders Status: Resolved Plan: Likely due to alcohol withdrawal delirium. Continue CIWA protocol and continue to follow-up psychiatric recommendations. (3) Hyponatremia ICD Code: E87.1 - Hypo-osmolality and hyponatremia Status: Resolved Plan: Likely hypovolemic hyponatremia due to dehydration and failure to thrive. Sodium 118 on admission, likely due to dehydration and alcoholism. Patient was treated with IV normal saline with slow improvement of sodium up to 136. Continue to monitor BMP (4) Hypokalemia ICD Code: E87.6 - Hypokalemia Status: Resolved Plan: Likely secondary to poor oral intake and alcoholism. Initially alcohol level II.4 which has been replaced IV and orally. Potassium level is now within normal range. Continue to monitor BMP. (5) Alcohol withdrawal ICD Code: F10.239 - Alcohol dependence with withdrawal, unspecified Status: Acute Plan: Treated with CIWA protocol with benzodiazepines, Librium standing as per psychiatry which has been tapered off. Recommended alcohol cessation. (6) Unspecified psychosis ICD Code: F29 - Unspecified psychosis not due to a substance or known physiological condition Status: Resolved Plan: Psychiatric consulted. Patient on Librium taper, however the patient is most of the time lethargic. I will discontinue Librium now. (7) Dysphagia ICD Code: R13.10 - Dysphagia, unspecified Status: Acute Plan: Initially speech therapy consulted, the patient was placed nothing by mouth. Modified barium swallow showed mild oral moderate pharyngeal phase dysphagia with silent aspiration on cup sips of thin liquids and penetration on straw sips of thin and nectar thick liquids. No penetration was observed with honey thickened liquids pure or solids. However as per the barium swallow report. Premature spillage into the valleculae and piriform sinus of the bolus with solids, he would be at risk for aspiration with solids. Speech therapy recommended pure and honey thickened liquids. No straws. Patient should only take by mouth intake when he is alert and awake. (8) Anemia ICD Code: D64.9 - Anemia, unspecified Status: Chronic Plan: Patient with stable hemoglobin. Platelets initially low and now up to normal. Likely secondary to bone marrow suppression. Iron studies noted and show low iron percent and normal ferritin. Check stool guaiac. (9) Cough ICD Code: R05 - Cough Status: Resolved Plan: Coughing likely due to aspiration. Chest x-ray ordered on 07/02 and was unremarkable without any acute disease. (10) Tobacco abuse ICD Code: Z72.0 - Tobacco use Plan: Advised smoking cessation. Continue nicotine patch. Assessment and Plan VT prophylaxis: SCDs. Avoid chemoprophylaxis given history of bleeding ulcer. Encouraged ambulation. Encourage ambulation. Discharge Planning DC as per primary. The patient will need rehabilitation placement. Problem Qualifiers (1) Alcohol withdrawal: Qualified Codes: F10.231 - Alcohol dependence with withdrawal delirium (2) Anemia: Qualified Codes: D61.89 - Other specified aplastic anemias and other bone marrow failure syndromes Juan Carlos Link MD Jul 07, 2017 12:37
--- NOTE | 2017-07-07 17:09 | HHI.PYPN ---
Subjective Remarks Patient seen for follow-up, chart reviewed. Patient seen sitting on hospital bed, cooperative interview today. Patient noted to be more alert and organized and thought process during interview. Patient states that he is feeling "okay" denying any perceptual services although still unclear on the advanced brought to the hospital. Patient recognizes that he does have a problem with alcohol use and is amenable to rehabilitation program although he did not want to participate in inpatient rehabilitation but rather an outpatient. Patient states that he would like to be able to continue taking care of his family and knows that he has to quit drinking. Review of Systems Except as stated in HPI: all other systems reviewed are Neg Objective Alert: Yes [place]: Person, Date (-year only) Mood: Calm, Other ("better") Affect: Other (slightly guarded) Memory Intact: Recent (impaired surrounding events department to the hospital) Hallucinations: Other (denies at this time) Delusions: No Delusion Type: Other (denies) Suicidal: Ideation (denies) Homicidal: Ideation (denies) Insight/Judgment Limited insight, fair impulse control, limited judgment Vitals/IOs Vital Signs Date Time Temp Pulse Resp B/P (MAP) Pulse Ox O2 Delivery O2 Flow Rate FiO2 07/07/17 05:23 98.4 83 16 102/65 (77) 98 Intake and Output 07/07/17 07/07/17 07/07/17 07:59 15:59 23:59 Intake Total 320 ml 360 ml Balance 320 ml 360 ml Assessment & Plan Problem List: (1) Unspecified psychosis ICD Codes: F29 - Unspecified psychosis not due to a substance or known physiological condition Status: Resolved (2) Alcohol withdrawal ICD Codes: F10.239 - Alcohol dependence with withdrawal, unspecified Status: Acute Assessment & Plan Patient at this time no longer endorsing any psychotic symptoms or paranoia as patient currently now clear from alcohol withdrawal. Patient noted to be more alert and organized. Patient aware of his current alcohol use problem and is considering rehabilitation program this time only wants outpatient rehabilitation program. Patient was counseled extensively and abstinence from alcohol use and encouraged to participate on an inpatient rehabilitation at this time is considering outpatient rehabilitation. Treatment team) with family with patient's discharge plan and referral to an outpatient rehabilitation program along with follow-up. Patient will be discharged tomorrow back to family. Justification for Cont. Inpt. At risk for further decompensation if at lower level of care. Problem Qualifiers (1) Alcohol withdrawal: Qualified Codes: F10.231 - Alcohol dependence with withdrawal delirium Luis Felipe Thrasher MD Jul 07, 2017 17:08
[2017-07-07 18:31] VITALS: BP 97/64; PULSE 86; RESP 17; TEMP 98.2; O2SAT 97
[2017-07-08 06:00] VITALS: BP 98/58; PULSE 80; RESP 17; TEMP 97.8; O2SAT 96
[2017-07-08] MEDS ORDERED: FOLI1TAB6 PO (08:24)
[2017-07-08] MEDS ORDERED: THERTAB15 PO (08:24)
[2017-07-08] MEDS ORDERED: GNP100TA3 PO (08:24)
[2017-07-08] MEDS ORDERED: RISP1 PO (08:24)
[2017-07-08] MEDS: FOLIC ACID 1 MG TAB PO SCH (09:00)
[2017-07-08] MEDS: NICOTINE 21 MG/24 HR PATCH T-DERMAL SCH (09:00)
[2017-07-08] MEDS: MULTIVITAMIN TAB PO SCH (09:00)
[2017-07-08] MEDS ORDERED: THIAMINE HCL 100 MG TAB PO SCH (09:00)
[2017-07-08] MEDS: risperiDONE 1 MG TAB PO SCH (09:00)
--- NOTE | 2017-07-08 09:17 | HHI.DS ---
Psychiatry Discharge Summary Inpatient Psychiatric care?: Yes Advance Directive: No Reason Not Provided: PROVIDED COPY Mental Health AdvanceDirective: No Health Care Proxy: No Admission Admission Date Jun 28, 2017 at 17:36 Admission Diagnosis: (1) Unspecified psychosis ICD Code: F29 - Unspecified psychosis not due to a substance or known physiological condition (2) Alcohol withdrawal ICD Code: F10.239 - Alcohol dependence with withdrawal, unspecified Brief History 06/28/2017 The patient is a 57-year-old man, domicile in [place], single, unemployed, without no previous psychiatric history, no previous suicidal attempts, no previous psychiatric hospitalizations, no significant medical history, alcohol use disorder, who presented with altered mental status/ Lynn act. As per Lynn act patient barricading himself at home screaming, very distressed and called the police stating that the street was full of people trying to kill him. Medical records reviewed stated that patient was Lynn act and brought to the ED. Per ED provider patient reported that he probably some clowns have been vandalizing his house and neighborhood. He feels like they're targeting his house because he recently inherited $4300. Patient lives with his mom who is 91 years old. Consulted to psychiatry for new onset psychosis. On psychiatric evaluation patient is found calm, cooperative and pleasant. Patient is fully oriented 3, he is able to say who is the president of denies states, able to name 3 objects, repeat 3 words, recall 2 of them 5 minutes later. The patient reports being very scared "because my mother's safety my house and there are many people surrounding my house trying to kill me". He says that in the last week he has been increasingly preoccupied because they're people from the mob and clowns with weapons shooting at his window and tried to kill him. He says that he can see them everyday. He says that the reason of his hospitalization is that those people sprayed poison on him. Other than this the patient reports good mood, denies current anxiety, denies anhedonia, denies hopelessness, denies helplessness. He denies suicidal and homicidal ideation, patient doesn't seem to be insightful about the nature of perceptual disturbances. He denies visual and auditory hallucinations. However, he reports having the sensation of people watching him, following him and poisoning his food. Patient reports daily use of 6-10 beers for the last 15 years. He reports past symptoms of withdrawal. Denies DTs and seizures. Last night he was in a detox rehabilitation was 15 years ago. Denies the use of illicit drugs. 06/29/2017 patient seen for psychiatric reevaluation follow with nurse in charge Flash. Patient is very sedated due to multiple injections of Ativan to control withdrawal. However, patient continues to have persistent delusions of being followed by clowns and being sprayed with poison. Patient is also having actively visual hallucinations and is internally preoccupied. Last night patient was agitated and aggressive, very loud, voicing that they were policemen shooting in the window. At the moment of this evaluation no withdrawal symptoms, no tremors, no aggressive behavior or agitation present. Patient is compliant with his medications, no significant side effects. 06/30/17 Patient is a 57-year-old man with no past psychiatric history significant street of alcohol and substance use who was brought into the hospital under Lynn act after police had found him there after barricading himself inside his home. Patient found to be in alcohol withdrawal currently under CIWA protocol for the same and has been noted to continue to have paranoia , perceptual disturbances (visual and auditory) and continues to have psychosis at this time. Patient was found sitting on hospital chair noted to be very lethargic, interaction was superficial as patient was noted to be disorganized, noted to be responding to internal stimuli and paranoid. Patient at this time isnt noted to continue to be going through alcohol withdrawal with recent CIWA scores of 20, 6, 14, 17, and recently this morning 15. Patient at this time will remain on close observations for now. Tobacco Use In Past 30 Days: 5 or More Cigarettes/Day Alcohol Use: 4 or More Times Per Week Hospital Course Patient is a 57-year-old man, domicile in [place], single, unemployed, without previous psychiatric history, no previous suicidal attempts , no previous psychiatric hospitalizations, no significant medical history, alcohol use disorder, who presented with altered mental status/Lynn act. As per Lynn act patient barricading himself at home screaming, very distressed and called the police stating that the street was full of people trying to kill him. Patient was noted to be paranoid, with auditory and visual hallucinations , disorganized which risperidone was started for psychosis along with management with CIWA protocol for alcohol withdrawal. Patient continued to have elevated CIWA scores and was put on a Librium regimen which was later tapered as withdrawal signs and symptoms decreased. Patient had episodes of agitation which he required IM medications to address his symptoms. Patient began to be less paranoid, less disorganized and responding well to withdrawal management. Patient was noted to be deconditioned and received physical therapy as well as speech therapy for swallowing during his admission. Patient continue to improve and Librium was discontinued. Patient upon discharge, was noted to be calm and cooperative, reporting wanting to go home. Patient was provided extensive counseling on abstinence from alcohol use as well as recommendations to engage in inpatient rehabilitation program which he refused and was wanting to participate in outpatient program. Patient denied SI, HI, AVH or delusions. Results Blood Pressure 98 / 58 Vital Signs Date Time Temp Pulse Resp B/P (MAP) Pulse Ox O2 Delivery O2 Flow Rate FiO2 07/08/17 06:00 97.8 80 17 98/58 (71) 96 Laboratory Results Test 06/29/17 04:28 Cholesterol Level 118 MG/DL (120-200) HDL Cholesterol 69.9 MG/DL (40.0-60.0) Hemoglobin A1c 5.6 % (4.3-6.0) LDL Cholesterol 37 MG/DL (0-99) Triglycerides Level 57 MG/DL (42-150) Summary of Procedures None Imaging Last Impressions Modified Barium Swallow 07/06/17 0000 Signed Impressions: Service Date/Time: Thursday, July 06, 2017 00:00 - CONCLUSION: Please see speech pathology report Chandler Chavez MD Brain MRI 07/05/17 0000 Signed Impressions: Service Date/Time: Wednesday, July 05, 2017 09:12 - CONCLUSION: 1. No evidence of acute intracranial pathology. Chronic ischemic changes as above. Krystian Sanchez MD Chest X-Ray 07/02/17 0000 Signed Impressions: Service Date/Time: Sunday, July 02, 2017 13:28 - CONCLUSION: 1. No acute cardiopulmonary disease or significant interval change. Clayton Kolb MD Pending results at discharge: No Medications # of Antipsychotic meds at D/C: 1 Approp Antipsych med options 1 - Minimum of three failed multiple trials of monotherapy. 2 - Documented plan to taper to monotherapy due to previous use of multiple meds OR cross-taper in progress at D/C. 3 - Documentation of augmentation of Clozapine. 4 - Justification other than those listed in allowable values 1-3, document here : Discharge Discharge Date: Jul 08, 2017 Discharge Diagnosis: (1) Unspecified psychosis Diagnosis: Principal ICD Code: F29 - Unspecified psychosis not due to a substance or known physiological condition Status: Resolved (2) Alcohol withdrawal Diagnosis: Secondary ICD Code: F10.239 - Alcohol dependence with withdrawal, unspecified Status: Acute Mental Status Exam at Disch Appearance/Behavior: appears stated age, in hospital [facility], fair grooming and hygiene, calm and cooperative with interview; fair eye contact; no psychomotor agitation nor retardation noted. Speech: slow rate, low tone and normal prosody Mood: Good....I'm ready! Affect: Full, reactive Thought process: Linear, future oriented, goal directed Thought content: Denies SI, HI, AVH or delusions Insight/impulse control/judgment: Fair Alert and oriented 3 Pt Condition on Discharge: Stable Discharge Disposition: Disch w/ Home Health Serv Discharge Instructions Diet Instructions: Heart Healthy Diet Activities you can perform: Regular-No Restrictions Discharge Time > 30 minutes Discharge/Advance Care Plan Health Problems: (1) Unspecified psychosis (2) Alcohol withdrawal Goals to promote your health * To prevent worsening of your condition and complications * To maintain your health at the optimal level Directions to meet your goals Take your medications as prescribed Follow your dietary instruction Follow activity as directed Keep your appointments as scheduled Take your immunizations and boosters as scheduled If your symptoms worsen call your PCP, if no PCP go to Urgent Care Center or Emergency Room For 24/ questions related to your inpatient stay or results of tests pending at discharge, please contact Dr. Luis Felipe Thrasher at Smoking is Dangerous to Your Health. Avoid second hand smoking Problem Qualifiers (1) Alcohol withdrawal: Qualified Codes: F10.231 - Alcohol dependence with withdrawal delirium Luis Felipe Thrasher MD Jul 08, 2017 09:17
--- NOTE | 2017-07-08 11:26 | HHI.PR ---
Subjective Remarks Patient states " I feel great" Denies cp/sob when asked if he can walk by himself, he states that he can denies fevers/chills Per sitter and RN patient is unable to ambulate without help Objective Vitals Vital Signs Date Time Temp Pulse Resp B/P (MAP) Pulse Ox O2 Delivery O2 Flow Rate FiO2 07/08/17 06:00 97.8 80 17 98/58 (71) 96 07/07/17 18:31 98.2 86 17 97/64 (75) 97 I/O 07/07/17 07/07/17 07/07/17 07/08/17 07/08/17 07/08/17 06:59 14:59 22:59 06:59 14:59 22:59 Intake Total 320 ml 360 ml 1200 ml 100 ml 240 ml Balance 320 ml 360 ml 1200 ml 100 ml 240 ml Intake Oral 320 ml 360 ml 1200 ml 100 ml 240 ml # Voids 2 1 1 1 Objective Remarks GENERAL: This is a thin appearing male, older than stated age, well-developed patient, in no apparent distress. SKIN: Multiple raised erythematous plaques on the bilateral lower extremities. Warm and dry. HEAD: Normocephalic. No temporal or scalp tenderness. EYES: Pupils equal round and reactive. Extraocular motions intact. No scleral icterus. No injection or drainage. ENT: Nose without bleeding. Throat without erythema. Uvula midline. Airway patent. NECK: Trachea midline. Supple. CARDIOVASCULAR: Tachycardia without murmurs, gallops, or rubs. RESPIRATORY: Coarse breath sounds. No wheezes, rales, or rhonchi. GASTROINTESTINAL: Abdomen soft, non-tender, nondistended. Bowel sounds active 4. No guarding. MUSCULOSKELETAL: Extremities without clubbing, cyanosis, or edema. NEUROLOGICAL: 3 out of 5 strength in the lower and upper extremities. PSYCH: Flattened affect. A/P Problem List: (1) Encephalopathy acute ICD Code: G93.40 - Encephalopathy, unspecified Status: Resolved Plan: Likely a combination of metabolic and toxic encephalopathy. On admission patient with hyponatremia and toxicology screen positive for alcohol. CT of the head negative. Brain MRI unremarkable Patient started on IV thiamine on July 04 2 treat wernicke's encephalopathy. Patient also started on CIWA protocol and standing Librium order per psychiatry. Librium has been tapered to off. Patient had a cognitive eval and speech therapy. Initially made nothing by mouth. Neurology consulted on following. Speech therapy evaluation deemed that the patient will need rehabilitation and I will walker for ambulation once ready to discharge. (2) Paranoid delusion ICD Code: F22 - Delusional disorders Status: Resolved Plan: Likely due to alcohol withdrawal delirium. Treated with Benzodiazepines as per [facility] protocol. (3) Hyponatremia ICD Code: E87.1 - Hypo-osmolality and hyponatremia Status: Resolved Plan: Likely hypovolemic hyponatremia due to dehydration and failure to thrive. Sodium 118 on admission, likely due to dehydration and alcoholism. Patient was treated with IV normal saline with slow improvement of sodium up to 136. Continue to monitor BMP (4) Hypokalemia ICD Code: E87.6 - Hypokalemia Status: Resolved Plan: Likely secondary to poor oral intake and alcoholism. K replaced orally and IV. Potassium level is now within normal range. Continue to monitor BMP. K 3.8 today (5) Alcohol withdrawal ICD Code: F10.239 - Alcohol dependence with withdrawal, unspecified Status: Acute Plan: Treated with CIAL protocol with benzodiazepines, Librium standing as per psychiatry which has been tapered off. Recommended alcohol cessation. (6) Unspecified psychosis ICD Code: F29 - Unspecified psychosis not due to a substance or known physiological condition Status: Resolved Plan: Psychiatric consulted. Patient on Librium taper as per psych which was discontinued on 07/08. (7) Dysphagia ICD Code: R13.10 - Dysphagia, unspecified Status: Acute Plan: Initially speech therapy consulted, the patient was placed nothing by mouth. Modified barium swallow showed mild oral moderate pharyngeal phase dysphagia with silent aspiration on cup sips of thin liquids and penetration on straw sips of thin and nectar thick liquids. No penetration was observed with honey thickened liquids pure or solids. However as per the barium swallow report. Premature spillage into the valleculae and piriform sinus of the bolus with solids, he would be at risk for aspiration with solids. Speech therapy recommended pure and honey thickened liquids. No straws. Patient should only take by mouth intake when he is alert and awake. (8) Anemia ICD Code: D64.9 - Anemia, unspecified Status: Chronic Plan: Patient with stable hemoglobin. Platelets initially low and now up to normal. Likely secondary to bone marrow suppression. Iron studies noted and show low iron percent and normal ferritin. Stool guaiac ordered. this could be followed as an outpatient. (9) Cough ICD Code: R05 - Cough Status: Resolved Plan: Coughing likely due to aspiration. Chest x-ray ordered on 07/02 and was unremarkable without any acute disease. (10) Tobacco abuse ICD Code: Z72.0 - Tobacco use Plan: Advised smoking cessation. Continue nicotine patch. Assessment and Plan VT prophylaxis: SCDs. Avoid chemoprophylaxis given history of bleeding ulcer. Encouraged ambulation. Encourage ambulation. Discharge Planning Patint cleared by psychiatry to be discharged. Patient is very weak and needs rehab however he refused to go to rehab and wants to go home. DC home with home health. Problem Qualifiers (1) Alcohol withdrawal: Qualified Codes: F10.231 - Alcohol dependence with withdrawal delirium (2) Anemia: Qualified Codes: D61.89 - Other specified aplastic anemias and other bone marrow failure syndromes Juan Carlos Link MD Jul 08, 2017 11:26
== END 2017-07-08 18:10 | disposition home or self-care (01) | DRG 885 ==
LOC: H4EA 17:36
PROVIDERS: ADMIT Student in an Organized Health Care Education/Training Program; ATTEND Student in an Organized Health Care Education/Training Program
DX: F22 Delusional disorders (principal); G92 Toxic encephalopathy; F10.231 Alcohol dependence with withdrawal delirium; D69.59 Other secondary thrombocytopenia; G31.2 Degeneration of nervous system due to alcohol; E87.1 Hypo-osmolality and hyponatremia; R13.13 Dysphagia, pharyngeal phase; E51.2 Wernicke's encephalopathy; E87.6 Hypokalemia; E86.0 Dehydration; R27.8 Other lack of coordination; D64.89 Other specified anemias; R05 Cough; R62.7 Adult failure to thrive; L40.9 Psoriasis, unspecified; M19.90 Unspecified osteoarthritis, unspecified site; F17.210 Nicotine dependence, cigarettes, uncomplicated
CPT/HCPCS: 70551; 71010; 74230; 80048; 80061; 80076; 81001; 82140; 82607; 82728; 82746; 82948; 83036; 83540; 83550; 84425; 85025; 85027; 95819; J1630; J2060; J3411; J7030; J7042; J7050

== ENCOUNTER 2017-10-22 07:34 | Emergency (ER) | payer OTHER ==
[~2017-10-22 07:34] MED LIST changes: -GNP100TA3 PO; +THERTAB15 PO; +THIA100 PO
[2017-10-22 07:35] VITALS: BP 111/69; PULSE 101; RESP 20; TEMP 98.4; O2SAT 97
[2017-10-22] MEDS ORDERED: IOHEXOL 350 MG/ML 10 ML VIAL (for RAD DIAG) IVCONTRAST ONE (07:35)
[2017-10-22] MEDS ORDERED: SODIUM CHLORIDE 0.9% FLUSH 10 ML FLUSH IVF PRN (07:45)
[2017-10-22] MEDS ORDERED: SODIUM CHLORID 0.9% 500 ML INJ 500 ML IV ONE (07:45)
[2017-10-22] MEDS ORDERED: MORPHINE SULFATE 4 MG/ML INJ IV PUSH ONE (07:45)
[2017-10-22] MEDS ORDERED: ONDANSETRON HCL 4 MG/2 ML VIAL IV PUSH ONE (07:45)
--- NOTE | 2017-10-22 07:50 | PD ---
HPI Chief Complaint: Injury Time Seen by Provider: 07:45 Travel History International Travel<30 days: No Contact w/Intl Traveler<30days: No Traveled to known affect area: No History of Present Illness HPI 57-year-old male patient with history of alcohol use, pancreatitis, presents to the ER today because he thinks he fell last night, does not remember what happened but woke up with right rib pains which hurts worse with breathing and movements. He is not sure whether he hit his head or not. He was able to ambulate. Pain is currently rated 8 out of 10. Modifying Factors: Worse with deep breaths and movements Associated Signs & Symptoms: Right rib pains, fall, questionable head injury Risk Factors: Alcohol abuse PFSH Past Medical History Arthritis: No Asthma: No Autoimmune Disease: No Blood Disorders: No Anxiety: No Depression: No Heart Rhythm Problems: No Cancer: Yes (SKIN) Cardiovascular Problems: No High Cholesterol: No Chemotherapy: No Chest Pain: No Congestive Heart Failure: No COPD: No Cerebrovascular Accident: No Diabetes: No Diminished Hearing: No Endocrine: No Gastrointestinal Disorders: Yes (BLEEDING ULCERS) GERD: No Glaucoma: No Genitourinary: No Headaches: No Hepatitis: No Hiatal Hernia: No Hypertension: No Immune Disorder: No Kidney Stones: No Musculoskeletal: No Neurologic: No Reproductive: No Respiratory: No Integumentary: Yes (PSORIASIS) Migraines: No Myocardial Infarction: No Pancreatitis: Yes Radiation Therapy: No Renal Failure: No Seizures: No Sickle Cell Disease: No Sleep Apnea: No Thyroid Disease: No Ulcer: Yes (bleeding) Past Surgical History Abdominal Surgery: No AICD: No Appendectomy: No Arteriovenous Shunt: No Cardiac Surgery: No Cholecystectomy: No Ear Surgery: No Endocrine Surgery: No Eye Surgery: No Genitourinary Surgery: No Gynecologic Surgery: No Insulin Pump: No Joint Replacement: No Oral Surgery: No Pacemaker: No Thoracic Surgery: No Other Surgery: Yes (MULT ORTHOPEDIC SURGERIES) Social History Alcohol Use: Yes (6 BEERS DAILY) Tobacco Use: Yes (1.5 PPD) Substance Use: Yes (etoh) Allergies-Medications (Allergen,Severity, Reaction): Coded Allergies: No Known Allergies (Verified Adverse Reaction, Unknown, 10/22/17) Reported Meds & Prescriptions Reported Meds & Active Scripts Active No Active Prescriptions or Reported Medications Review of Systems Except as stated in HPI: all other systems reviewed are Neg Physical Exam Narrative GENERAL: Well-developed middle age white male patient currently and moderate distress. Awake and oriented 3. SKIN: Focused skin assessment warm/dry. HEAD: Atraumatic. Normocephalic. EYES: Pupils equal and round. No scleral icterus. No injection or drainage. ENT: No nasal bleeding or discharge. Mucous membranes pink and moist. NECK: Trachea midline. No JVD. No midline C-spine tenderness. CARDIOVASCULAR: Regular rate and rhythm. No murmur appreciated. RESPIRATORY: No accessory muscle use. Clear to auscultation. Breath sounds equal bilaterally. GASTROINTESTINAL: Abdomen soft, diffusely tender without guarding or rebound, nondistended. Hepatic and splenic margins not palpable. CHEST: Right rib tenderness without deformity or crepitance. No retractions or use of accessory muscles. MUSCULOSKELETAL: No obvious deformities. No clubbing. No cyanosis. No edema. NEUROLOGICAL: Awake and alert. No obvious cranial nerve deficits. Motor grossly within normal limits. Normal speech. PSYCHIATRIC: Appropriate mood and affect; insight and judgment normal. Data Data Last Documented VS Vital Signs Date Time Temp Pulse Resp B/P (MAP) Pulse Ox O2 Delivery O2 Flow Rate FiO2 10/22/17 12:50 57 16 114/63 (80) 98 Room Air 10/22/17 07:35 98.4 Orders Orders Complete Blood Count With Diff (10/22/17 07:45) Prothrombin Time / Inr (Pt) (10/22/17 07:45) Act Partial Throm Time (Ptt) (10/22/17 07:45) Alcohol (Ethanol) (10/22/17 07:45) Chest, Single Ap (10/22/17 07:45) Ct Brain W/O Iv Contrast(Rout) (10/22/17 07:45) Ct Cerv Spine W/O Contrast (10/22/17 07:45) Ct Abd/Pel W Iv Contrast(Rout) (10/22/17 07:45) Ct Thorax/ Chest W Iv Contrast (10/22/17 07:45) Iv Access Insert/Monitor (10/22/17 07:45) Ecg Monitoring (10/22/17 07:45) Oximetry (10/22/17 07:45) Oxygen Administration (10/22/17 07:45) Morphine Inj (Morphine Inj) (10/22/17 07:45) Ondansetron Inj (Zofran Inj) (10/22/17 07:45) Sodium Chloride 0.9% Flush (Ns Flush) (10/22/17 07:45) Comprehensive Metabolic Panel (10/22/17 07:45) Lipase (10/22/17 07:45) Sodium Chlorid 0.9% 500 Ml Inj (Ns 500 M (10/22/17 07:45) Iohexol 350 Inj (Omnipaque 350 Inj) (10/22/17 07:35) Chlordiazepoxide (Librium) (10/22/17 12:45) Ed Discharge Order (10/22/17 13:51) Mandatory Outpatient Referral (10/22/17 13:52) Labs Laboratory Tests Test 10/22/17 07:50 10/22/17 08:30 White Blood Count 7.7 TH/MM3 Red Blood Count 4.38 MIL/MM3 Hemoglobin 13.4 GM/DL Hematocrit 40.1 % Mean Corpuscular Volume 91.5 FL Mean Corpuscular Hemoglobin 30.5 PG Mean Corpuscular Hemoglobin Concent 33.3 % Red Cell Distribution Width 15.9 % Platelet Count 171 TH/MM3 Mean Platelet Volume 8.1 FL Neutrophils (%) (Auto) 70.1 % Lymphocytes (%) (Auto) 17.5 % Monocytes (%) (Auto) 10.7 % Eosinophils (%) (Auto) 1.2 % Basophils (%) (Auto) 0.5 % Neutrophils # (Auto) 5.4 TH/MM3 Lymphocytes # (Auto) 1.4 TH/MM3 Monocytes # (Auto) 0.8 TH/MM3 Eosinophils # (Auto) 0.1 TH/MM3 Basophils # (Auto) 0.0 TH/MM3 CBC Comment DIFF FINAL Differential Comment Prothrombin Time 9.6 SEC Prothromb Time International Ratio 0.9 RATIO Activated Partial Thromboplast Time 24.1 SEC Blood Urea Nitrogen 7 MG/DL Creatinine 0.59 MG/DL Random Glucose 73 MG/DL Total Protein 7.0 GM/DL Albumin 3.4 GM/DL Calcium Level 8.1 MG/DL Alkaline Phosphatase 64 U/L Aspartate Amino Transf (AST/SGOT) 42 U/L Alanine Aminotransferase (ALT/SGPT) 23 U/L Total Bilirubin 0.6 MG/DL Sodium Level 140 MEQ/L Potassium Level 4.4 MEQ/L Chloride Level 104 MEQ/L Carbon Dioxide Level 25.6 MEQ/L Anion Gap 10 MEQ/L Estimat Glomerular Filtration Rate 142 ML/MIN Lipase 222 U/L Ethyl Alcohol Level 106 MG/DL MDM Medical Decision Making Medical Screen Exam Complete: Yes Emergency Medical Condition: Yes Medical Record Reviewed: Yes Interpretation(s) Laboratory Tests Test 10/22/17 07:50 10/22/17 08:30 Red Blood Count 4.38 MIL/MM3 (4.50-5.90) Neutrophils (%) (Auto) 70.1 % (16.0-70.0) Monocytes (%) (Auto) 10.7 % (0.0-8.0) Prothrombin Time 9.6 SEC (9.8-11.6) Activated Partial Thromboplast Time 24.1 SEC (24.3-30.1) Creatinine 0.59 MG/DL (0.60-1.30) Random Glucose 73 MG/DL (74-106) Calcium Level 8.1 MG/DL (8.5-10.1) Aspartate Amino Transf (AST/SGOT) 42 U/L (15-37) Ethyl Alcohol Level 106 MG/DL (0-5) Last [address] 10/22/1745 Signed Impressions: Service Date/Time: Sunday, October 22, 2017 09:23 - CONCLUSION: 1. Moderate periventricular white matter hypodensities consistent with small vessel ischemic white matter demyelination, more than expected for age. 2. No acute intracranial abnormality. Clayton Kolb MD Chest X-Ray 10/22/17744 Signed Impressions: Service Date/Time: Sunday, October 22, 2017 08:06 - CONCLUSION: 1. No acute cardiopulmonary disease. Clayton Kolb MD Chest CT 10/22/1745 Signed Impressions: Service Date/Time: Sunday, October 22, 2017 09:27 - CONCLUSION: 1. No evidence of rib fractures. 2. 6 mm pulmonary nodule posterior right lower lung. Recommend a followup CT thorax without contrast in 6 months check stability. 3. No acute intrathoracic disease. 4. Chronic interstitial changes bilaterally. Francisco Diaz MD Cervical Spine CT 10/22/1745 Signed Impressions: Service Date/Time: Sunday, October 22, 2017 09:23 - CONCLUSION: 1. No acute bony fracture. 2. There is moderate diffuse primary bony degenerative changes, disc degeneration and disc space narrowing throughout the cervical spine. Francisco Diaz MD Abdomen/Pelvis CT 10/22/17 0745 Signed Impressions: Service Date/Time: Sunday, October 22, 2017 09:30 - CONCLUSION: 1. No acute traumatic abnormality in the abdomen or pelvis. 2. 3.4 x 3.3 cm cyst near the tail of the pancreas consistent with pseudocyst given the patient's history of distal pancreatitis on prior CT exam. Clayton Kolb MD Differential Diagnosis Fall, right rib pains, abdominal pains, unknown head injury: Intracranial injuries versus rib fractures versus pulmonary contusions versus abdominal injuries versus pancreatitis versus alcoholic gastritis Narrative Course Lab work was fairly unremarkable. He is positive for alcohol. CAT scan did not show any signs of acute pulmonary or chest wall injuries, no intracranial injuries or C-spine injuries. Abdominal CAT scan was unremarkable for any signs of acute injuries but he does have a pancreatic pseudocyst. It is unclear whether this is an incidental finding or an active issue. He is diffusely tender in the abdomen with no guarding or rebound. He actually did not complain of abdominal pains initially on evaluation. His lipase is normal. Case is discussed with Drs. Castro who states that this is likely a coincidental finding if patient is not otherwise symptomatic with no lipase elevation or signs of sepsis. He states that these are to be observed for any further growth. I plan would be to release the patient at this point with follow-up to GI for pseudocyst. Return for any worsening in pain or new symptoms as needed. The plan has been discussed with him he states understanding. Diagnosis Primary Impression: Chest wall contusion Additional Impressions: Fall Pancreatic pseudocyst Alcohol intoxication Med/Other Pt SpecificInfo: Prescription(s) given Scripts Ibuprofen (Ibuprofen) 600 Mg Tab 600 MG PO Q6H Y for Pain/Inflammation, #20 TAB 0 Refills Prov: Angel Odom MD 10/22/17 Disposition: 01 DISCHARGE HOME Condition: Stable Angel Odom MD Oct 22, 2017 07:50
[2017-10-22 08:09] LABS: AUTOMATED NEUTROPHIL # 5.4 TH/MM3 (1.8-7.7); BASOPHIL % 0.5 % (0.0-2.0); EOSINOPHIL # 0.1 TH/MM3 (0-0.4); EOSINOPHIL % 1.2 % (0.0-4.0); HEMATOCRIT 40.1 % (39.0-51.0); HEMOGLOBIN 13.4 GM/DL (13.0-17.0); LYMPH % 17.5 % (9.0-44.0); LYMPHOCYTE # 1.4 TH/MM3 (1.0-4.8); MEAN CELL VOLUME 91.5 FL (80.0-100.0); MEAN CORPUSCULAR HEMOGLOBIN 30.5 PG (27.0-34.0); MEAN CORPUSCULAR HGB CONC 33.3 % (32.0-36.0); MEAN PLATELET VOLUME 8.1 FL (7.0-11.0); MONO % 10.7 % (0.0-8.0); MONOCYTE # 0.8 TH/MM3 (0-0.9); NEUT % 70.1 % (16.0-70.0); PLATELET COUNT 171 TH/MM3 (150-450); RED BLOOD COUNT 4.38 MIL/MM3 (4.50-5.90); RED CELL DISTRIBUTION WIDTH 15.9 % (11.6-17.2); WHITE BLOOD COUNT 7.7 TH/MM3 (4.0-11.0)
--- NOTE | 2017-10-22 08:19 | RADRPT ---
EXAM DATE/TIME: 10/22/2017 08:06 [facility] COMPARISON: CHEST SINGLE AP, July 02, 2017, 13:28. INDICATIONS : Right chest pain after falling last night. MEDICAL HISTORY : Smoker. SURGICAL HISTORY : None. ENCOUNTER: Initial ACUITY: 2 days PAIN SCORE: 8/10 LOCATION: Right axillary chest. FINDINGS: A single view of the chest demonstrates the lungs to be symmetrically aerated without evidence of mas s, infiltrate or effusion. The cardiomediastinal contours are unremarkable. Osseous structures are intact. CONCLUSION: 1. No acute cardiopulmonary disease. Clayton Kolb MD on October 22, 2017 at 8:16 Board Certified Radiologist. This report was verified electronically.
[2017-10-22 08:22] LABS: INTERNATIONAL NORMALIZED RATIO 0.9 RATIO; PROTHROMBIN TIME - PATIENT 9.6 SEC (9.8-11.6)
[2017-10-22 09:08] LABS: ALT (GPT) 23 U/L (12-78)
[2017-10-22 09:11] VITALS: BP 101/67; PULSE 69; RESP 17; O2SAT 97
[2017-10-22 09:13] LABS: ALBUMIN 3.4 GM/DL (3.4-5.0); ALKALINE PHOSPHATASE 64 U/L (45-117); AST (GOT) 42 U/L (15-37); BICARBONATE 25.6 MEQ/L (21.0-32.0); BLOOD UREA NITROGEN 7 MG/DL (7-18); CALCIUM 8.1 MG/DL (8.5-10.1); CHLORIDE 104 MEQ/L (98-107); CREATININE 0.59 MG/DL (0.60-1.30); GLOMERULAR FILTRATION RATE 142 ML/MIN (>89); GLUCOSE,RANDOM 73 MG/DL (74-106); LIPASE 222 U/L (73-393); SODIUM (NA) 140 MEQ/L (136-145); TOTAL BILIRUBIN ADULT 0.6 MG/DL (0.2-1.0)
--- NOTE | 2017-10-22 10:07 | RADRPT ---
EXAM DATE/TIME: 10/22/2017 09:23 [facility] COMPARISON: CT BRAIN W/O CONTRAST, June 27, 2017, 19:48. INDICATIONS : Trauma, fall last night, headache. RADIATION DOSE: 56.35 CTDIvol (mGy) MEDICAL HISTORY : Pancreatitis. Ulcers. SURGICAL HISTORY : None. ENCOUNTER: Initial ACUITY: 1 day PAIN SCALE: 3/10 LOCATION: Bilateral temporal TECHNIQUE: Multiple contiguous axial images were obtained of the head. Using automated exposure control and adj ustment of the mA and/or kV according to patient size, radiation dose was kept as low as reasonably a chievable to obtain optimal diagnostic quality images. DICOM format image data is available electro nically for review and comparison. FINDINGS: CEREBRUM: Mild diffuse cerebral atrophy. Small lacunar infarct in the right internal capsule. Moderate perivent ricular white matter hypodensities. The ventricles are normal for degree of atrophy. No evidence of midline shift, mass lesion, hemorrhage or acute infarction. No extra-axial fluid collections are see n. POSTERIOR FOSSA: The cerebellum and brainstem are intact. The 4th ventricle is midline. The cerebellopontine angle i s unremarkable. EXTRACRANIAL: The visualized portion of the orbits is intact. Mild mucoperiosteal thickening and small mucous reten tion cyst in the right maxillary sinus. SKULL: The calvaria is intact. No evidence of skull fracture. CONCLUSION: 1. Moderate periventricular white matter hypodensities consistent with small vessel ischemic white ma tter demyelination, more than expected for age. 2. No acute intracranial abnormality. Clayton Kolb MD on October 22, 2017 at 10:03 Board Certified Radiologist. This report was verified electronically.
--- NOTE | 2017-10-22 10:08 | RADRPT ---
EXAM DATE/TIME: 10/22/2017 09:27 [facility] COMPARISON: CHEST SINGLE AP, July 02, 2017, 13:28. INDICATIONS : Trauma; fall, right rib pain. IV CONTRAST: 96 cc Omnipaque 350 (iohexol) IV ; Cumulative dose for multiple exams. RADIATION DOSE: 5.1 CTDIvol (mGy) ; Combined studies - Thorax/Abdomen/Pelvis MEDICAL HISTORY : Pancreatitis. Ulcers. SURGICAL HISTORY : None. ENCOUNTER: Initial ACUITY: 1 day PAIN SCALE: 7/10 LOCATION: Right chest TECHNIQUE: Volumetric scanning of the chest was performed. Using automated exposure control and adjustment of t he mA and/or kV according to patient size, radiation dose was kept as low as reasonably achievable to obtain optimal diagnostic quality images. DICOM format image data is available electronically for review and comparison. Follow-up recommendations for detected pulmonary nodules are based at a minimum on nodule size and pa tient risk factors according to Fleischner Society Guidelines. FINDINGS: LUNGS: There is a 6 mm pulmonary nodule in the posterior right lower lung. There are chronic interstitial ch anges bilaterally. Otherwise, the lungs are clear and well-aerated. No acute pulmonary infiltrates ar e demonstrated. There is no evidence of pneumothorax. PLEURA: There is no pleural thickening or pleural effusion. MEDIASTINUM: The heart and great vessels demonstrate no acute abnormality. There is no mediastinal or hilar lymph adenopathy. AXILLAE: Within normal limits. No lymphadenopathy. SKELETAL: Within normal limits for patient age. No evidence of rib fractures. MISCELLANEOUS: The visualized upper abdominal organs demonstrate no acute abnormality. Fatty infiltration of the manoj er. CONCLUSION: 1. No evidence of rib fractures. 2. 6 mm pulmonary nodule posterior right lower lung. Recommend a followup CT thorax without contrast in 6 months check stability. 3. No acute intrathoracic disease. 4. Chronic interstitial changes bilaterally. Francisco Diaz MD on October 22, 2017 at 10:03 Board Certified Radiologist. This report was verified electronically.
--- NOTE | 2017-10-22 10:19 | RADRPT ---
EXAM DATE/TIME: 10/22/2017 09:23 [facility] COMPARISON: No previous studies available for comparison. INDICATIONS : Trauma; fall, neck pain. RADIATION DOSE: 37.0 CTDIvol (mGy) MEDICAL HISTORY : Pancreatitis. Ulcers. SURGICAL HISTORY : None. ENCOUNTER: Initial ACUITY: 1 day PAIN SCALE: 4/10 LOCATION: Bilateral neck TECHNIQUE: Volumetric scanning of the cervical spine was performed. Multiplanar reconstructions in the sagittal, coronal and oblique axial planes were performed. Using automated exposure control and adjustment o f the mA and/or kV according to patient size, radiation dose was kept as low as reasonably achievable to obtain optimal diagnostic quality images. DICOM format image data is available electronically f or review and comparison. FINDINGS: VERTEBRAE: There is diffuse prominence primary bony degenerative changes, disc degeneration and disc space narro wing throughout the cervical spine especially from C3-C7. No acute bony fractures. ALIGNMENT: No evidence of subluxation. C2-C3: The bony spinal canal is normal in size. No evidence of disc bulge or herniation. The neural forami na are bilaterally patent. C3-C4: The bony spinal canal is normal in size. No evidence of disc bulge or herniation. The neural forami na are bilaterally patent. C4-C5: Broad-based bulging disc osteophyte complex. Mild narrowing of the neural foramina bilaterally. C5-C6: The bony spinal canal is normal in size. No evidence of disc bulge or herniation. The neural forami na are bilaterally patent. C6-C7: Mild broad-based bulging with disc osteophyte complex. Mild narrowing of the neural foramina bilatera lly, left greater than right. C7-T1: The bony spinal canal is normal in size. No evidence of disc bulge or herniation. The neural forami na are bilaterally patent. CONCLUSION: 1. No acute bony fracture. 2. There is moderate diffuse primary bony degenerative changes, disc degeneration and disc space narr owing throughout the cervical spine. Francisco Diaz MD on October 22, 2017 at 10:13 Board Certified Radiologist. This report was verified electronically.
--- NOTE | 2017-10-22 11:24 | RADRPT ---
EXAM DATE/TIME: 10/22/2017 09:30 [facility] COMPARISON: CT ABDOMEN W/O CONTRAST, September 20, 2009, 5:41. INDICATIONS : Trauma; fall, right side chest and abdomen pain. IV CONTRAST: 90 cc Omnipaque 350 (iohexol) IV ; Cumulative dose for multiple exams. ORAL CONTRAST: No oral contrast ingested. RADIATION DOSE: 5.1 CTDIvol (mGy) ; Combined studies - Thorax/Abdomen/Pelvis MEDICAL HISTORY : Pancreatitis. Ulcers. SURGICAL HISTORY : None. ENCOUNTER: Initial ACUITY: 1 day PAIN SCALE: 5/10 LOCATION: Right upper quadrant TECHNIQUE: Volumetric scanning of the abdomen and pelvis was performed. Using automated exposure control and ad justment of the mA and/or kV according to patient size, radiation dose was kept as low as reasonably achievable to obtain optimal diagnostic quality images. DICOM format image data is available electro nically for review and comparison. FINDINGS: LOWER LUNGS: The visualized lower lungs are clear. LIVER: Diffusely decreased hepatic density with focal fat adjacent to the falciform ligament. No hepatic jefferson real dilatation or focal mass. Gallbladder is unremarkable by CT. SPLEEN: Normal size without lesion. PANCREAS: There is a 3.4 x 3.3 cm cyst near the tail of the pancreas. Prior CT examination demonstrated distal pancreatitis in this region. Pancreas otherwise is unremarkable. No significant pancreatic calcificat ions KIDNEYS: Normal in size and shape. There is no mass, stone or hydronephrosis. ADRENAL GLANDS: Within normal limits. VASCULAR: There is no aortic aneurysm. BOWEL/MESENTERY: The stomach, small bowel, and colon demonstrate no acute abnormality. There is no free intraperitone al air or fluid. ABDOMINAL WALL: Within normal limits. RETROPERITONEUM: There is no significant lymphadenopathy. BLADDER: No wall thickening or mass. REPRODUCTIVE: Within normal limits. INGUINAL: There is no lymphadenopathy or hernia. MUSCULOSKELETAL: Osseous structures are intact without evidence for acute bony fracture. CONCLUSION: 1. No acute traumatic abnormality in the abdomen or pelvis. 2. 3.4 x 3.3 cm cyst near the tail of the pancreas consistent with pseudocyst given the patient's his tory of distal pancreatitis on prior CT exam. Clayton Kolb MD on October 22, 2017 at 11:14 Board Certified Radiologist. This report was verified electronically.
[2017-10-22] MEDS ORDERED: chlordiazePOXIDE 25 MG CAP PO PRN (12:45)
[2017-10-22 12:50] VITALS: BP 114/63; PULSE 57; RESP 16; O2SAT 98
[2017-10-22] MEDS ORDERED: IBUP-232 PO (13:55)
== END 2017-10-22 14:15 | disposition home or self-care (01) ==
LOC: NEPC 07:34
DX: S20.219A Contusion of unspecified front wall of thorax, initial encounter (principal); K86.3 Pseudocyst of pancreas; F10.129 Alcohol abuse with intoxication, unspecified; R91.1 Solitary pulmonary nodule; M50.30 Other cervical disc degeneration, unspecified cervical region; F17.200 Nicotine dependence, unspecified, uncomplicated; W19.XXXA Unspecified fall, initial encounter; Z87.19 Personal history of other diseases of the digestive system
CPT/HCPCS: 70450; 71010; 71260; 72125; 74177; 80053; 80307; 83690; 85025; 85610; 85730; 96361; 96374; 96375; 99285; J2270; J2405; J7040; Q9967